=== PATIENT | male | born 1960 | race Caucasian/White ===

== ENCOUNTER → 2020-08-23 11:19 | Outpatient (CLI) | payer OTHER, SELFPAY ==
[2020-08-23 15:49] LABS: Absolute Lymphocyte Count 2.78 X10^3/uL (0.83-4.51); Absolute Neutrophil Count 5.7 X10^3/uL (2.0-7.7); Basophil# 0.08 X10^3/uL; Basophil% 0.8 % (0-1); Eosinophil# 0.38 X10^3/uL; Eosinophils% 3.9 % (0-5); Hematocrit 43.5 % (40-54); Hemoglobin 13.7 g/dL (13.0-16.5); Lymphocyte # 2.78 X10^3/ul (4.0); Lymphocyte % 28.2 % (19-41); Mean Corp Hgb Conc 31.5 g/dL (32-36); Mean Platelet Vol. 12.2 fl (6.2-12.0); Monocyte# 0.93 X10^3/uL; Monocyte% 9.4 % (0-10); NRBC Flagged by Analyzer 0 % (0-5); Neutrophil # 5.66 X10^3/uL (2.7-7.7); Neutrophil % 57.5 % (47-70); Platelet Count 317 K/mm3 (150-450); RBC Distribution Width CV 13.3 % (11.6-14.6); RBC Distribution Width SD 43.6 fl (35.1-43.9); Red Blood Count 4.89 M/mm3 (4.6-6.2); White Blood Count 9.9 K/mm3 (4.4-11.0)
[2020-08-23 16:17] LABS: ALB/GLOB Ratio 1.1 RATIO (0.9-2.4); AST(SGOT) 18 U/L (15-37); Alanine Aminotransfer ALT/SGPT 32 U/L (16-61); Albumin, Serum 3.9 g/dL (3.2-5.0); Alkaline Phosphatase 66 U/L (45-117); Anion Gap 6 (5-15); BUN 14 mg/dL (7-18); BUN/Creat Ratio 12.2 RATIO (10-20); Calcium,Total 9.1 mg/dL (8.5-10.1); Chloride 106 mmol/L (98-107); Cholesterol 229 mg/dL (200); Creatinine, Serum 1.15 mg/dL (0.70-1.30); EST Glomerular Filtration Rate 69 mL/min (>60); Est Glom Filt Rate - Afr Amer 84 mL/min (>60); Globulin 3.4 g/dL (2.2-4.2); Glucose 97 mg/dL (74-106); High Density Lipoprotein 56 mg/dL; PSA,Total - Annual Screen 0.68 ng/mL (0.00-4.00); Potassium 4.9 mmol/L (3.5-5.1); Protein, Total 7.3 g/dL (6.4-8.2); Sodium Level 138 mmol/L (136-145); Thyroid Stim Hormone (TSH) 1.18 uIU/mL (0.358-3.74); Triglycerides 85 mg/dL; Uric Acid 8.4 mg/dL (3.5-7.2); Very Low Density Lipoprotein 17 mg/dL (5-40)
== END ==
PROVIDERS: PCP Family Medicine; Visit Provider Family Medicine
DX: I10 Essential (primary) hypertension (principal); M10.9 Gout, unspecified; Z12.5 Encounter for screening for malignant neoplasm of prostate
CPT/HCPCS: 36415; 80053; 80061; 84153; 84443; 84550; 85025; G0103

== ENCOUNTER → 2020-09-15 13:30 | Outpatient (CLI) | payer OTHER, SELFPAY | PROVIDERS: PCP Family Medicine; Referring Provider Family Medicine; Visit Provider Family Medicine | DX: R05 Cough (principal); R09.81 Nasal congestion | CPT/HCPCS: 87635; C9803; U0005; U0003 ==

== ENCOUNTER → 2021-05-16 14:39 | Outpatient (CLI) | payer OTHER, SELFPAY | PROVIDERS: Visit Provider Internal Medicine Endocrinology, Diabetes & Metabolism | DX: Z00.00 Encounter for general adult medical examination without abnormal findings (principal) ==

== ENCOUNTER → 2021-05-16 14:51 | Outpatient (CLI) | payer OTHER, SELFPAY ==
[2021-05-16 16:41] LABS: Absolute Lymphocyte Count 3.17 X10^3/uL (0.83-4.51); Absolute Neutrophil Count 7.5 X10^3/uL (2.0-7.7); Basophil# 0.06 X10^3/uL; Basophil% 0.5 % (0-1); Eosinophil# 0.32 X10^3/uL; Eosinophils% 2.6 % (0-5); Hematocrit 40.5 % (40-54); Hemoglobin 13.2 g/dL (13.0-16.5); Lymphocyte # 3.17 X10^3/ul (0.83-4.51); Lymphocyte % 26.1 % (19-41); Mean Corp Hgb Conc 32.6 g/dL (32-36); Mean Corpuscular Hgb 28.9 pg (27.0-32.0); Mean Corpuscular Volume 88.6 fL (80-94); Monocyte# 1.02 X10^3/uL; Monocyte% 8.4 % (0-10); NRBC Flagged by Analyzer 0 % (0-5); Neutrophil # 7.53 X10^3/uL (2.7-7.7); Platelet Count 303 K/mm3 (150-450); RBC Distribution Width CV 13.8 % (11.6-14.6); Red Blood Count 4.57 M/mm3 (4.6-6.2); White Blood Count 12.2 K/mm3 (4.4-11.0)
[2021-05-16 16:58] LABS: AST(SGOT) 18 U/L (15-37); Alanine Aminotransfer ALT/SGPT 31 U/L (16-61); Albumin, Serum 3.8 g/dL (3.2-5.0); Alkaline Phosphatase 75 U/L (45-117); Anion Gap 6 (5-15); BUN 12 mg/dL (7-18); BUN/Creat Ratio 11.8 RATIO (10-20); Calcium,Total 9.2 mg/dL (8.5-10.1); Chloride 106 mmol/L (98-107); Cholesterol 241 mg/dL (200); Creatinine, Serum 1.02 mg/dL (0.70-1.30); EST Glomerular Filtration Rate 79 mL/min (>60); Est Glom Filt Rate - Afr Amer 96 mL/min (>60); Globulin 3.7 g/dL (2.2-4.2); Glucose 90 mg/dL (74-106); High Density Lipoprotein 58 mg/dL; Potassium 4.1 mmol/L (3.5-5.1); Protein, Total 7.5 g/dL (6.4-8.2); Sodium Level 139 mmol/L (136-145); Triglycerides 86 mg/dL; Uric Acid 8.1 mg/dL (3.5-7.2); Very Low Density Lipoprotein 17 mg/dL (5-40)
== END ==
PROVIDERS: Visit Provider Internal Medicine
DX: I10 Essential (primary) hypertension (principal); E78.5 Hyperlipidemia, unspecified; M10.9 Gout, unspecified
CPT/HCPCS: 36415; 80053; 80061; 84550; 85025

== ENCOUNTER 2021-08-15 09:16 | Outpatient (CLI) | payer OTHER, SELFPAY ==
[2021-08-15 12:09] LABS: Absolute Lymphocyte Count 2.71 X10^3/uL (0.83-4.51); Absolute Neutrophil Count 6.9 X10^3/uL (2.0-7.7); Basophil# 0.07 X10^3/uL; Basophil% 0.6 % (0-1); Eosinophil# 0.29 X10^3/uL; Eosinophils% 2.7 % (0-5); Hematocrit 41.8 % (40-54); Hemoglobin 13.7 g/dL (13.0-16.5); Lymphocyte # 2.71 X10^3/ul (0.83-4.51); Lymphocyte % 25.2 % (19-41); Mean Corp Hgb Conc 32.8 g/dL (32-36); Mean Corpuscular Hgb 28.4 pg (27.0-32.0); Mean Corpuscular Volume 86.7 fL (80-94); Mean Platelet Vol. 11.7 fl (6.2-12.0); Monocyte# 0.74 X10^3/uL; Monocyte% 6.9 % (0-10); NRBC Flagged by Analyzer 0 % (0-5); Neutrophil # 6.92 X10^3/uL (2.7-7.7); Neutrophil % 64.2 % (47-70); Platelet Count 345 K/mm3 (150-450); RBC Distribution Width CV 13.5 % (11.6-14.6); RBC Distribution Width SD 42.6 fl (35.1-43.9); Red Blood Count 4.82 M/mm3 (4.6-6.2); White Blood Count 10.8 K/mm3 (4.4-11.0)
[2021-08-15 12:27] LABS: Uric Acid 6.7 mg/dL (3.5-7.2)
== END 2021-08-15 23:59 | disposition short-term general hospital (02) ==
LOC: BIMLAB 09:17
PROVIDERS: PCP Internal Medicine; Referring Provider Internal Medicine; Visit Provider Internal Medicine
DX: M10.9 Gout, unspecified (principal)
CPT/HCPCS: 36415; 84550; 85025

== ENCOUNTER → 2022-08-29 | Outpatient (CLI) | payer OTHER, SELFPAY ==
[2022-08-29 12:16] LABS: Absolute Lymphocyte Count 2.87 X10^3/uL (0.83-4.51); Absolute Neutrophil Count 6.3 X10^3/uL (2.0-7.7); Basophil# 0.09 X10^3/uL; Basophil% 0.8 % (0-1); Eosinophil# 0.35 X10^3/uL; Eosinophils% 3.3 % (0-5); Hematocrit 42.3 % (40-54); Hemoglobin 13.7 g/dL (13.0-16.5); Lymphocyte # 2.87 X10^3/ul (0.83-4.51); Lymphocyte % 26.9 % (19-41); Mean Corp Hgb Conc 32.4 g/dL (32-36); Mean Corpuscular Hgb 28.8 pg (27.0-32.0); Mean Corpuscular Volume 89.1 fL (80-94); Mean Platelet Vol. 11.8 fl (6.2-12.0); Monocyte# 1.03 X10^3/uL; Monocyte% 9.7 % (0-10); NRBC Flagged by Analyzer 0 % (0-5); Platelet Count 302 K/mm3 (150-450); RBC Distribution Width CV 13.9 % (11.6-14.6); RBC Distribution Width SD 45.2 fl (35.1-43.9); Red Blood Count 4.75 M/mm3 (4.6-6.2); White Blood Count 10.7 K/mm3 (4.4-11.0)
[2022-08-29 12:52] LABS: AST(SGOT) 18 U/L (15-37); Alanine Aminotransfer ALT/SGPT 33 U/L (16-61); Albumin, Serum 3.7 g/dL (3.2-5.0); Alkaline Phosphatase 70 U/L (45-117); Anion Gap 8 (5-15); BUN 18 mg/dL (7-18); BUN/Creat Ratio 16.8 RATIO (10-20); Calcium,Total 9.1 mg/dL (8.5-10.1); Chloride 107 mmol/L (98-107); Cholesterol 228 mg/dL (200); Creatinine, Serum 1.07 mg/dL (0.70-1.30); EST Glomerular Filtration Rate 75 mL/min (>60); Est Glom Filt Rate - Afr Amer 91 mL/min (>60); Globulin 3.6 g/dL (2.2-4.2); Glucose 111 mg/dL (74-106); High Density Lipoprotein 59 mg/dL; PSA,Total - Annual Screen 1.07 ng/mL (0.00-4.00); Potassium 4.8 mmol/L (3.5-5.1); Protein, Total 7.3 g/dL (6.4-8.2); Sodium Level 140 mmol/L (136-145); Thyroid Stim Hormone (TSH) 1.09 uIU/mL (0.358-3.74); Triglycerides 109 mg/dL; Very Low Density Lipoprotein 22 mg/dL (5-40)
[2022-08-29 14:59] LABS: Hemoglobin A1c 5.8 % (3.8-5.6)
== END | disposition home or self-care (01) ==
LOC: BIMLAB 08:33
PROVIDERS: PCP Nurse Practitioner Family; Referring Provider Nurse Practitioner Family; Visit Provider Nurse Practitioner Family
DX: Z00.00 Encounter for general adult medical examination without abnormal findings (principal)
CPT/HCPCS: 36415; 80053; 80061; 83036; 84153; 84443; 85025; G0103

== ENCOUNTER 2022-11-24 06:22 | Day surgery (SDC) | payer OTHER, SELFPAY ==
[2022-11-24 06:47] VITALS: BP 150/84; PULSE 59; RESP 16; TEMP 36.8; O2SAT 97; BMI 33.5
[2022-11-24] MEDS: Lactated Ringers 1,000 ML 15 ML IV (06:50)
--- NOTE | 2022-11-24 07:16 | H&P.OPEN ---
HPI - General HPI Narrative YARED PEPE, is a 62 M who presents for screening colonoscopy. Patient has had his last colonoscopy about 10 years ago. He denies any abdominal pain or blood in stool. Patient denies any family history of colon cancer except for his grandmother. [facility] Medical History (Updated 11/21/22 @ 10:49 by Debbie Vickers) Alcohol use Bilateral foot pain Encounter for preventative adult health care examination [facility] Health care maintenance History of deviated nasal septum History of stress test Hyperlipemia Hypertension Need for shingles vaccine Non-smoker Obesity (BMI 30-39.9) Home Medications aspirin 81 mg capsule 81 mg PO DAILY 05/16/21 [History Last Taken 11/23/22] multivitamin 1 tab PO DAILY 05/16/21 [History Last Taken Unknown] atenolol 50 mg tablet 50 mg PO DAILY #90 tabs 08/29/22 [Rx Last Taken 11/24/22] fexofenadine 60 mg tablet (Rosalinda Allergy) 60 mg PO DAILY 09/05/22 [History Last Taken Unknown] lisinopril 10 mg tablet 20 mg PO QDAY 11/21/22 [History Last Taken 11/24/22] Allergy/AdvReac Type Severity Reaction Status Date / Time Penicillins Allergy Unknown unknown Verified 11/24/22 06:39 Family History Father Heart disease Daughter No problems noted. Mother Breast cancer Grandmother Colon cancer Grandfather Heart disease Surgical History (Updated 11/21/22 @ 10:49 by Debbie Vickers) History of colonoscopy Hx of knee surgery Social History Smoking Status: Never smoker alcohol intake: current alcohol intake frequency: holidays/special occasions only substance use type: does not use what type of physical activity do you participate in: none Past Medical/Surgical History Planned Operation Planned Operative Procedure/s: CSCOPE OA Previous Hospitalizations/Surgeries HX Hospitalizations: No Any Problems With Anesthesia: No You/Your Family Experience Fever (Hyperthermia) With Anes: No Cholinesterase deficiency: No Cardiovascular Hx Hypertension: Yes (CONTROLLED WITH MEDS) Respiratory Hx Sleep Apnea: No Hx Respiratory Tract Infection/Cold (presently): No Do You Snore Loudly (louder than talking or can be heard): Yes Do You Often Feel Tired/ Fatigued/ Sleepy Dring Daytime?: No Has Anyone Observed You Stop Breathing During Sleep?: No Result (for STOP score): Positive Smoking Status: Never smoker Neurological Does patient have nerve stimulator: No Reproduction : No Miscellaneous Recent Exposure to Contagious Disease: No Allergies Penicillins Allergy (Unknown, Verified 11/24/22 06:39) unknown Discharge Is Pt Admitted From a [facility], or a Residential: No After D/C, Where Do you Plan to Go: Return Home Vital Signs Vital Signs Vital Signs: 11/24/22 06:47 11/24/22 06:47 Temperature 98.2 F Temperature Source Temporal Pulse Rate 59 L Respiratory Rate 16 Respiratory Pattern Normal Blood Pressure 150/84 H Blood Pressure Mean 106 Blood Pressure Source Monitor Blood Pressure Position Semi-Fowlers Blood Pressure Location Left Arm Pulse Ox 97 Oxygen Delivery Method Room Air Weight Weight: 220 lb 7.396 oz Body Mass Index (BMI) 33.5 Physical Exam Const alert and oriented x3 HEENT normocephalic Eyes PERRL Resp normal respiratory effort and normal air movement Cardio regular rate and regular rhythm GI soft to palpation, non-tender and non-distended Extremity normal to inspection Assessment & Plan Assessment/Plan (1) Encounter for screening for malignant neoplasm of colon: PLAN: I explained endoscopy in detail to the patient. I explained the risks including but not limited to stroke or heart attack with anesthesia, perforation of the GI tract, bleeding, infection. I explained that any of these could necessitate further emergency surgery. The patient understands and all questions were answered sufficiently. The patient wishes to proceed with procedure. Michoacano Gil MD Pager: [phone] [address] [place] [address], [address] [place] [address] Office: Surgery Risks - Colonoscopy Risks Include but are not Limited To: Risks include but are not limited to: Bleeding, perforation requiring further surgery, inability to complete colonoscopy requiring barium enema.
--- NOTE | 2022-11-24 07:30 | COLBX_PTH ---
PATIENT: YARED PEPE (ROB) LOC: EN U#:[id number] AGE/SX: 62/M ROOM: RE11/24/[address]: Dr. Michoacano Gil MD : 1960 BED: DIS: 11/24/2022 SPEC #: [id number] RECD: 11/24/22 12:32 STATUS: LAYTON PARIKH #: [id number] PEDRO: 11/24/22 07:[address]: Michoacano Gil DEPT: SURGICAL PATHOLOGY RECD BY: Guillermina Oneil ENTERED: 11/27/22 07:22 SP TYPE: COLON BX OTHR DR: Pillo Anderson, RIAZ-Venancio Tissues: Rectum, NOS Procedures: Surgery Specimen Level IV HEADER OPERATION: Colonoscopy with polypectomy, open access (MAC) PRE-OP DIAGNOSIS: Screening TISSUE SUBMITTED: Rectal polyp MICROSCOPIC DIAGNOSIS Rectal polyp, biopsy: Tubular adenoma. AM:julissa 11/28/2022 MICROSCOPIC DESCRIPTION Slides are reviewed. GROSS DESCRIPTION Received in fixative is one container labeled with the patient's name and designated rectal polyp. The specimen consists of one irregular fragment of light tran soft tissue that measures 0.5 x 0.5 x 0.1 cm. The specimen is totally submitted in one cassette. / AM:julissa 11/27/2022 TC:5 CPT: 71048
[2022-11-24 07:45] VITALS: BP 150/84; BP 89/49; PULSE 53; RESP 16; TEMP 36.6; O2SAT 95
--- NOTE | 2022-11-24 07:46 | OP.COLON_ITS ---
Patient Name: Samuel Jackson Procedure Date: 11/24/2022 7:09 AM Date of : 1960 Age: 62 Procedure: Colonoscopy Indications: Screening for colorectal malignant neoplasm Providers: Michoacano Gil MD Referring MD: Michoacano Gil MD Medicines: Monitored Anesthesia Care Patient Profile: This is a 62 year old male. Refer to note in patient chart for documentation of history and physical. Last Colonoscopy: 10 years ago. Complications: No immediate complications. Procedure: Pre-Anesthesia Assessment: - Prior to the procedure, a History and Physical was performed, and patient medications and allergies were reviewed. The patient's tolerance of previous anesthesia was also reviewed. The risks and benefits of the procedure and the sedation options and risks were discussed with the patient. All questions were answered, and informed consent was obtained. Prior Anticoagulants: The patient has taken no previous anticoagulant or antiplatelet agents. After reviewing the risks and benefits, the patient was deemed in satisfactory condition to undergo the procedure. After I obtained informed consent, the scope was passed under direct vision. Throughout the procedure, the patient's blood pressure, pulse, and oxygen saturations were monitored continuously. The Colonoscope was introduced through the anus and advanced to the cecum, identified by appendiceal orifice and ileocecal valve. The colonoscopy was performed without difficulty. The patient tolerated the procedure well. The quality of the bowel preparation was good. Scope In: 7:28:04 AM Scope Withdrawal Time 0 hours 8 minutes 3 seconds Scope Out: 7:40:04 AM Total Procedure Duration Time 0 hours 12 minutes 0 seconds Findings: A polyp was found in the rectum. The polyp was removed with a hot snare. Resection and retrieval were complete. The exam was otherwise without abnormality on direct and retroflexion views. Impression: - One polyp in the rectum, removed with a hot snare. Resected and retrieved. - The examination was otherwise normal on direct and retroflexion views. Recommendation: - Discharge patient to home. - Resume previous diet. - Continue present medications. - Await pathology results. - Repeat colonoscopy in 5 years for surveillance. Procedure Code(s): --- Professional --- 73313, 33, Colonoscopy, flexible; with removal of tumor(s), polyp(s), or other lesion(s) by snare technique Diagnosis Code(s): --- Professional --- Z12.11, Encounter for screening for malignant neoplasm of colon K62.1, Rectal polyp CPT copyright 2017 [employer]. All rights reserved. The codes documented in this report are preliminary and upon remote medical coder review may be revised to meet current compliance requirements. Michoacano Gil MD 11/24/2022 7:45:43 AM This report has been signed electronically. Number of Addenda: 0 Note Initiated On: 11/24/2022 7:09 AM
--- NOTE | 2022-11-24 07:47 | OP.CCLET_ITS ---
11/24/2022 Pillo Anderson, RIAZ [address] [place] [address] [place] [address] Re : Colonoscopy procedure for Samuel Jackson Dear Mr. Anderson This procedure was performed on Thursday, November 24, 2022. My impressions and recommendations are as follows: Impressions : - One polyp in the rectum, removed with a hot snare. Resected and retrieved. - The examination was otherwise normal on direct and retroflexion views. Recommendations : - Discharge patient to home. - Resume previous diet. - Continue present medications. - Await pathology results. - Repeat colonoscopy in 5 years for surveillance. My findings are described in the full procedure note, which is enclosed. If I can be of further assistance, please feel free to contact me at Doctor phone number(s): , Work: . Sincerely, Michoacano Gil MD 11/24/2022 7:45:43 AM This report has been signed electronically.
[2022-11-24 07:50] VITALS: BP 150/84; BP 86/49; PULSE 52; RESP 16; O2SAT 94
[2022-11-24 07:55] VITALS: BP 111/68; BP 150/84; PULSE 51; RESP 16; O2SAT 94
[2022-11-24 08:00] VITALS: BP 113/68; BP 150/84; PULSE 50; RESP 16; TEMP 36.5; O2SAT 93
[2022-11-24 08:20] VITALS: BP 150/84
== END 2022-11-24 08:25 | disposition home or self-care (01) ==
LOC: EN 06:24 → AC 06:25
PROVIDERS: PCP Nurse Practitioner Family; Referring Provider Nurse Practitioner Family; Visit Provider Surgery
PROC: 0DJD8ZZ Inspection of Lower Intestinal Tract, Via Natural or Artificial Opening Endoscopic (ICD-10-PCS; CPT 45378; principal; 2022-11-24 07:25)
DX: Z12.11 Encounter for screening for malignant neoplasm of colon (principal); D12.8 Benign neoplasm of rectum; I10 Essential (primary) hypertension; Z79.899 Other long term (current) drug therapy; Z79.82 Long term (current) use of aspirin; Z80.0 Family history of malignant neoplasm of digestive organs
CPT/HCPCS: 45385; 88305; J7120; J2405

== ENCOUNTER → 2022-12-05 | Outpatient (CLI) | payer OTHER, SELFPAY ==
[2022-12-05 09:24] LABS: Anion Gap 5 (5-15); BUN 13 mg/dL (7-18); BUN/Creat Ratio 11.3 RATIO (10-20); Calcium,Total 9.4 mg/dL (8.5-10.1); Chloride 108 mmol/L (98-107); Creatinine, Serum 1.15 mg/dL (0.70-1.30); EST Glomerular Filtration Rate 69 mL/min (>60); Est Glom Filt Rate - Afr Amer 83 mL/min (>60); Glucose 116 mg/dL (74-106); Potassium 4.7 mmol/L (3.5-5.1); Sodium Level 140 mmol/L (136-145)
== END | disposition home or self-care (01) ==
LOC: PAVLAB 08:32
PROVIDERS: PCP Nurse Practitioner Family; Referring Provider Nurse Practitioner Family; Visit Provider Nurse Practitioner Family
DX: I10 Essential (primary) hypertension (principal)
CPT/HCPCS: 36415; 80048

== ENCOUNTER → 2023-09-08 | Outpatient (CLI) | payer OTHER, SELFPAY ==
--- OUTSIDE RECORDS SUMMARY | 2023-09-08 08:09 | XMS RPT_ITS | CCD ---
Author Name Unknown Address [address] [place] [address] Organization [facility] Results Test Name Value Interpretation Reference Range Facil ity Summary Purpose Family History No Family History Records Found Advance Directives No Advanced Directives Records Found Additional Source Comments (unrecognized sect ion and content) No Status Records Found INFORMATION SOURCE (unrecogn ized section and content) FOR RECORDS PERTAINING TO PATIENTS WHO ARE OR HAVE BEEN ENROLLED IN A CHEMICAL DEPENDENCY/SUBSTANCEABUSE PROGRAM, SOME INFORMATION MAY BE OMITTED. This clinical summary was aggregated from multiple sources. Caution should be exercised in using it in the provision of clinical care. This summary normalizes information from multiple sources, and as a consequence, information in this document may materially change the coding, format and clinical context of patient data. In addition, data may be omitted in some cases. CLINICAL DECISIONS SHOULD BE BASED ON THE PRIMARY CLINICAL RECORDS. [employer]. provides no warranty or guarantee of the accuracy or completeness of information in this document.
[2023-09-08 09:18] LABS: Absolute Lymphocyte Count 3.46 X10^3/uL (0.83-4.51); Basophil# 0.12 X10^3/uL; Basophil% 1.1 % (0-1); Eosinophil# 0.62 X10^3/uL; Eosinophils% 5.5 % (0-5); Hematocrit 41.8 % (40-54); Hemoglobin 13.3 g/dL (13.0-16.5); Lymphocyte # 3.46 X10^3/ul (0.83-4.51); Lymphocyte % 30.7 % (19-41); Mean Corp Hgb Conc 31.8 g/dL (32-36); Mean Corpuscular Hgb 28.1 pg (27.0-32.0); Mean Corpuscular Volume 88.4 fL (80-94); Mean Platelet Vol. 11.5 fl (6.2-12.0); Monocyte# 1.02 X10^3/uL; Monocyte% 9.1 % (0-10); NRBC Flagged by Analyzer 0 % (0-5); Neutrophil # 6.01 X10^3/uL (2.7-7.7); Neutrophil % 53.2 % (47-70); Platelet Count 337 K/mm3 (150-450); RBC Distribution Width CV 13.2 % (11.6-14.6); RBC Distribution Width SD 42.6 fl (35.1-43.9); Red Blood Count 4.73 M/mm3 (4.6-6.2); White Blood Count 11.3 K/mm3 (4.4-11.0)
[2023-09-08 10:14] LABS: ALB/GLOB Ratio 1.1 RATIO (0.9-2.4); AST(SGOT) 17 U/L (15-37); Alanine Aminotransfer ALT/SGPT 26 U/L (16-61); Albumin, Serum 3.8 g/dL (3.2-5.0); Alkaline Phosphatase 64 U/L (45-117); Anion Gap 4 (5-15); BUN 17 mg/dL (7-18); BUN/Creat Ratio 12.8 RATIO (10-20); Calcium,Total 9.8 mg/dL (8.5-10.1); Chloride 106 mmol/L (98-107); Cholesterol 277 mg/dL (200); Creatinine, Serum 1.33 mg/dL (0.70-1.30); EST Glomerular Filtration Rate 58 mL/min (>60); Est Glom Filt Rate - Afr Amer 70 mL/min (>60); Globulin 3.6 g/dL (2.2-4.2); Glucose 119 mg/dL (74-106); High Density Lipoprotein 58 mg/dL; PSA,Total - Annual Screen 0.83 ng/mL (0.00-4.00); Potassium 4.4 mmol/L (3.5-5.1); Protein, Total 7.4 g/dL (6.4-8.2); Sodium Level 137 mmol/L (136-145); Triglycerides 95 mg/dL; Very Low Density Lipoprotein 19 mg/dL (5-40)
== END | disposition home or self-care (01) ==
LOC: LAB 08:07
PROVIDERS: PCP Internal Medicine; Referring Provider Internal Medicine; Visit Provider Internal Medicine
DX: Z00.00 Encounter for general adult medical examination without abnormal findings (principal); I10 Essential (primary) hypertension; R73.03 Prediabetes
CPT/HCPCS: 36415; 80053; 80061; 83036; 84153; 85025; G0103

== ENCOUNTER → 2023-10-17 | Outpatient (CLI) | payer OTHER, SELFPAY ==
--- OUTSIDE RECORDS SUMMARY | 2023-10-17 07:57 | XMS RPT_ITS | CCD ---
Author Name Unknown Address [address] [place] [address] Organization [facility] Results Test Name Value Interpretation [...] BE BASED ON THE PRIMARY CLINICAL RECORDS. [employer]. provides no warranty or guarantee of the accuracy or completeness of information in this document.
[2023-10-17 08:44] LABS: ALB/GLOB Ratio 1.1 RATIO (0.9-2.4); AST(SGOT) 33 U/L (15-37); Alanine Aminotransfer ALT/SGPT 30 U/L (16-61); Albumin, Serum 3.7 g/dL (3.2-5.0); Alkaline Phosphatase 52 U/L (45-117); Anion Gap 6 (5-15); BUN 14 mg/dL (7-18); BUN/Creat Ratio 12.1 RATIO (10-20); Chloride 104 mmol/L (98-107); Creatinine, Serum 1.16 mg/dL (0.70-1.30); EST Glomerular Filtration Rate 68 mL/min (>60); Est Glom Filt Rate - Afr Amer 82 mL/min (>60); Globulin 3.5 g/dL (2.2-4.2); Glucose 107 mg/dL (74-106); Potassium 4.4 mmol/L (3.5-5.1); Protein, Total 7.2 g/dL (6.4-8.2); Sodium Level 137 mmol/L (136-145)
== END | disposition home or self-care (01) ==
PROVIDERS: PCP Internal Medicine; Referring Provider Internal Medicine; Visit Provider Internal Medicine
DX: E78.5 Hyperlipidemia, unspecified (principal)
CPT/HCPCS: 36415; 80053

== ENCOUNTER → 2023-12-14 | Outpatient (CLI) | payer OTHER, SELFPAY ==
[2023-12-14 08:57] LABS: ALB/GLOB Ratio 1.1 RATIO (0.9-2.4); AST(SGOT) 19 U/L (15-37); Alanine Aminotransfer ALT/SGPT 24 U/L (16-61); Alkaline Phosphatase 61 U/L (45-117); Anion Gap 4 (5-15); BUN 20 mg/dL (7-18); BUN/Creat Ratio 17.5 RATIO (10-20); Calcium,Total 9.7 mg/dL (8.5-10.1); Chloride 105 mmol/L (98-107); Cholesterol 152 mg/dL (200); Creatinine, Serum 1.14 mg/dL (0.70-1.30); EST Glomerular Filtration Rate 69 mL/min (>60); Est Glom Filt Rate - Afr Amer 84 mL/min (>60); Globulin 3.6 g/dL (2.2-4.2); Glucose 116 mg/dL (74-106); High Density Lipoprotein 57 mg/dL; Protein, Total 7.6 g/dL (6.4-8.2); Sodium Level 136 mmol/L (136-145); Triglycerides 68 mg/dL; Very Low Density Lipoprotein 14 mg/dL (5-40)
== END | disposition home or self-care (01) ==
PROVIDERS: PCP Internal Medicine; Referring Provider Internal Medicine; Visit Provider Internal Medicine
DX: E78.5 Hyperlipidemia, unspecified (principal)
CPT/HCPCS: 36415; 80053; 80061

== ENCOUNTER → 2024-03-07 | Outpatient (CLI) | payer OTHER, SELFPAY ==
[2024-03-07 11:18] LABS: Anion Gap 5 (5-15); BUN 17 mg/dL (7-18); BUN/Creat Ratio 14.5 RATIO (10-20); Calcium,Total 9.9 mg/dL (8.5-10.1); Chloride 104 mmol/L (98-107); Creatinine, Serum 1.17 mg/dL (0.70-1.30); EST Glomerular Filtration Rate 67 mL/min (>60); Est Glom Filt Rate - Afr Amer 81 mL/min (>60); Glucose 111 mg/dL (74-106); Potassium 5.1 mmol/L (3.5-5.1); Sodium Level 137 mmol/L (136-145)
== END | disposition home or self-care (01) ==
LOC: BIMLAB 08:22
PROVIDERS: PCP Internal Medicine; Referring Provider Internal Medicine; Visit Provider Internal Medicine
DX: R73.03 Prediabetes (principal); I10 Essential (primary) hypertension
CPT/HCPCS: 36415; 80048; 83036

== ENCOUNTER → 2024-03-10 | Outpatient (CLI) | payer OTHER, SELFPAY ==
[2024-03-10 11:55] LABS: Body Fluid QC Type(s) BF3Q
[2024-03-10 11:56] LABS: CRYSTALS, BODY FLUID NO CRYSTALS SEEN; Source- Body Fluid SYNOVIAL
[2024-03-11 14:52] LABS: Pathologist Review Reviewed
== END | disposition home or self-care (01) ==
LOC: LABSPEC 10:50
PROVIDERS: PCP Internal Medicine; Referring Provider Orthopaedic Surgery; Visit Provider Orthopaedic Surgery
DX: I10 Essential (primary) hypertension (principal); E78.5 Hyperlipidemia, unspecified; M10.9 Gout, unspecified; R73.03 Prediabetes
CPT/HCPCS: 89060

== ENCOUNTER → 2024-04-21 | Outpatient (CLI) | payer OTHER, SELFPAY ==
--- NOTE | 2024-04-21 11:39 | MRI_ITS ---
STUDY: MRI RIGHT KNEE REASON FOR EXAM: Male, 64 years old. Throbbing pain for 3 months. TECHNIQUE: Standardized fat and water weighted pulse sequences were obtained in all 3 orthogonal planes. COMPARISON: Right knee radiographs dated 03/10/2024. FINDINGS: Normal medial meniscus. Normal hyaline cartilage of the medial femorotibial compartment. Normal medial femoral condyle and tibial plateau. There is a mild grade I MCL sprain with periligamentous edema (coronal T2 series 7001 image 21). Intact distal semimembranosus, gracilis and semitendinosus tendons. There is mild semimembranosus-tibial collateral ligament bursitis. There is a suspected small horizontal tear of the body of the lateral meniscus (coronal PD series 6001 images 21-22). Normal hyaline cartilage of the lateral femorotibial compartment. Normal lateral femoral condyle and tibial plateau. Normal proximal tibiofibular articulation. Normal lateral collateral (fibular) ligament. Normal popliteus tendon. Normal biceps femoris tendon. Normal anterior cruciate ligament (ACL). Normal posterior cruciate ligament (PCL). There is moderate grade chondromalacia along the medial patellar facet (axial T2 series 3001 images 27-28). There is slight lateral patellar subluxation. Normal medial and lateral patellar retinaculum. Normal quadriceps tendon. Normal patellar tendon. Normal Hoffa''s fat pad. There is a moderate to large joint effusion. There is a tiny popliteal cyst. There is mild subcutaneous soft tissue edema around the knee. There is no acute fracture. MRI/Lower Ext Joint Only (Routine) IMPRESSION: Suspected small horizontal tear of the body of the lateral meniscus. Mild grade I MCL sprain. Mild semimembranosus-tibial collateral ligament bursitis. 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 Moderate to large joint effusion, with a tiny popliteal cyst. Mild subcutaneous soft tissue edema around the knee. Electronically Signed: Davin Hall MD at 11:10 EDT ,
== END | disposition home or self-care (01) ==
LOC: MRI 13:14
PROVIDERS: PCP Internal Medicine; Referring Provider Orthopaedic Surgery; Visit Provider Orthopaedic Surgery
DX: M17.11 Unilateral primary osteoarthritis, right knee (principal)
CPT/HCPCS: 73721; A9575; A4216

== ENCOUNTER → 2024-07-10 | Outpatient (CLI) | payer OTHER, SELFPAY ==
[2024-07-10 16:32] LABS: Erythrocyte Sedimentation Rate 20 mm/hr (0-20)
[2024-07-10 16:47] LABS: Rheumatoid Factor < 10.0 IU/mL (<15)
[2024-07-12 13:07] LABS: CCP IgG Antibodies 7 units (0-19); Lyme Scn Total Ab w/Rflx Negative (Negative)
[2024-07-15 11:09] LABS: ANTINUCLEAR ANTIBODIES DIRECT Negative (Negative)
== END | disposition home or self-care (01) ==
LOC: BIMLAB 15:51
PROVIDERS: PCP Internal Medicine; Referring Provider Physician Assistant; Visit Provider Physician Assistant
DX: M79.10 Myalgia, unspecified site (principal)
CPT/HCPCS: 36415; 85652; 86038; 86140; 86200; 86225; 86235; 86431; 86618

== ENCOUNTER → 2024-09-08 | Outpatient (CLI) | payer OTHER, SELFPAY ==
[2024-09-08 10:35] LABS: Absolute Lymphocyte Count 2.41 X10^3/uL (0.83-4.51); Absolute Neutrophil Count 6.3 X10^3/uL (2.0-7.7); Basophil# 0.08 X10^3/uL; Basophil% 0.8 % (0-1); Eosinophil# 0.52 X10^3/uL; Eosinophils% 5.1 % (0-5); Hematocrit 38.8 % (40-54); Hemoglobin 12.5 g/dL (13.0-16.5); Lymphocyte # 2.41 X10^3/ul (0.83-4.51); Lymphocyte % 23.5 % (19-41); Mean Corp Hgb Conc 32.2 g/dL (32-36); Mean Corpuscular Hgb 27.8 pg (27.0-32.0); Mean Corpuscular Volume 86.2 fL (80-94); Mean Platelet Vol. 11.7 fl (6.2-12.0); Monocyte# 0.91 X10^3/uL; Monocyte% 8.9 % (0-10); NRBC Flagged by Analyzer 0 % (0-5); Neutrophil # 6.31 X10^3/uL (2.7-7.7); Neutrophil % 61.4 % (47-70); Platelet Count 317 K/mm3 (150-450); RBC Distribution Width CV 13.9 % (11.6-14.6); RBC Distribution Width SD 43.6 fl (35.1-43.9); White Blood Count 10.3 K/mm3 (4.4-11.0)
[2024-09-08 11:07] LABS: AST(SGOT) 15 U/L (15-37); Alanine Aminotransfer ALT/SGPT 26 U/L (16-61); Albumin, Serum 3.9 g/dL (3.2-5.0); Alkaline Phosphatase 58 U/L (45-117); Anion Gap 8 (5-15); BUN 18 mg/dL (7-18); BUN/Creat Ratio 15.1 RATIO (10-20); Calcium,Total 10.1 mg/dL (8.5-10.1); Chloride 104 mmol/L (98-107); Creatinine, Serum 1.19 mg/dL (0.70-1.30); EST Glomerular Filtration Rate 66 mL/min (>60); Est Glom Filt Rate - Afr Amer 80 mL/min (>60); Globulin 3.8 g/dL (2.2-4.2); Glucose 117 mg/dL (74-106); PSA,Total - Annual Screen 0.94 ng/mL (0.00-4.00); Potassium 4.9 mmol/L (3.5-5.1); Protein, Total 7.7 g/dL (6.4-8.2); Sodium Level 138 mmol/L (136-145)
[2024-09-08 13:49] LABS: Hemoglobin A1c 5.6 % (3.8-5.6)
== END | disposition home or self-care (01) ==
LOC: BIMLAB 08:51
PROVIDERS: PCP Internal Medicine; Referring Provider Internal Medicine; Visit Provider Internal Medicine
DX: I10 Essential (primary) hypertension (principal); R73.03 Prediabetes; Z12.5 Encounter for screening for malignant neoplasm of prostate
CPT/HCPCS: 36415; 80053; 83036; 84153; 85025; G0103

== ENCOUNTER → 2024-12-12 | Outpatient (CLI) | payer OTHER, SELFPAY ==
[2024-12-12 13:42] LABS: Absolute Neutrophil Count 5.5 X10^3/uL (2.0-7.7); Basophil# 0.09 X10^3/uL; Eosinophil# 0.36 X10^3/uL; Eosinophils% 3.9 % (0-5); Hematocrit 38.3 % (40-54); Hemoglobin 12.6 g/dL (13.0-16.5); Lymphocyte % 25.1 % (19-41); Mean Corp Hgb Conc 32.9 g/dL (32-36); Mean Platelet Vol. 10.9 fl (6.2-12.0); Monocyte# 0.92 X10^3/uL; NRBC Flagged by Analyzer 0 % (0-5); Neutrophil # 5.48 X10^3/uL (2.7-7.7); Neutrophil % 59.8 % (47-70); Platelet Count 355 K/mm3 (150-450); RBC Distribution Width CV 13.9 % (11.6-14.6); RBC Distribution Width SD 44.6 fl (35.1-43.9); Red Blood Count 4.35 M/mm3 (4.6-6.2); White Blood Count 9.2 K/mm3 (4.4-11.0)
[2024-12-12 14:10] LABS: ALB/GLOB Ratio 1.5 RATIO (0.9-2.4); AST(SGOT) 24 U/L (<=37); Alanine Aminotransfer ALT/SGPT 18 U/L (<=46); Albumin, Serum 4.3 g/dL (3.4-4.8); Alkaline Phosphatase 62 U/L (40-129); Anion Gap 9 (5-15); BUN 16 mg/dL (4-19); BUN/Creat Ratio 15.1 RATIO (10-20); Calcium,Total 10.1 mg/dL (7.6-11.0); Carbon Dioxide 24.2 mmol/L (21.0-32.0); Chloride 101 mmol/L (98-108); Creatinine, Serum 1.06 mg/dL (0.70-1.20); EST Glomerular Filtration Rate 79 (>60); Globulin 2.8 g/dL (2.2-4.2); Glucose 110 mg/dL (70-99); Protein, Total 7.2 g/dL (5.9-8.4); Sodium Level 134 mmol/L (133-145)
[2024-12-15 16:21] LABS: Ferritin 241 ng/mL (37-417); Iron 99 ug/dL (65-175); Iron Binding Capacity,Total 358 ug/dL (250-450); Iron Binding Capacity,Unsat 259 ug/dL (228-428)
== END | disposition home or self-care (01) ==
LOC: BIMLAB 08:50
PROVIDERS: PCP Internal Medicine; Referring Provider Internal Medicine; Visit Provider Internal Medicine
DX: I10 Essential (primary) hypertension (principal); D64.9 Anemia, unspecified
CPT/HCPCS: 36415; 80053; 82728; 83540; 83550; 85025

== ENCOUNTER → 2024-12-18 | Outpatient (CLI) | payer OTHER, SELFPAY | END | disposition home or self-care (01) | LOC: LABSPEC 07:41 | PROVIDERS: PCP Internal Medicine; Referring Provider Internal Medicine; Visit Provider Internal Medicine | DX: D64.9 Anemia, unspecified (principal) | CPT/HCPCS: 82274 ==

== ENCOUNTER 2025-01-20 06:26 | Day surgery (SDC) | payer OTHER, SELFPAY ==
[2025-01-20] VITALS (7 sets, daily range): BP systolic 93–133; BP diastolic 60–81; PULSE 53–67; RESP 16–18; TEMP 36.2–36.7; O2SAT 92–98; BMI 32.1
--- OUTSIDE RECORDS SUMMARY | 2025-01-20 06:29 | XMS RPT_ITS | CCD ---
Author Organization [facility] CliniSyar Care Team Providers Care Contact Lens Manufacturer Name Role Phone Anderson FURNITURE STAINER, FURNITURE STAINER-C Pillo Primary Care Provider Anderson FURNITURE STAINER, FURNITURE STAINER-C Pillo Attending Provider [phone] Dr. Ximena Gagnon Referring Provider [phone] Donna Becerril Attending Provider Unavailable Anderson FURNITURE STAINER, FURNITURE STAINER-C Pillo Primary Care Provider Anderson FURNITURE STAINER, FURNITURE STAINER-C Pillo Attending Provider [phone] Dr. Ximena Gagnon Referring Provider [phone] Donna Becerril Attending Provider Unavailable Anderson FURNITURE STAINER, FURNITURE STAINER-C Pillo Referring Provider [phone] Dr. Michoacano Gil Attending Provider Dr. Michoacano Gil Other Provider Anderson FURNITURE STAINER, FURNITURE STAINER-C Pillo Primary Care Provider Anderson FURNITURE STAINER, FURNITURE STAINER-C Pillo Referring Provider [phone] Dr. Ximena Gagnon Attending Provider [phone] Anderson FURNITURE STAINER, FURNITURE STAINER-C Pillo Primary Care Provider Anderson FURNITURE STAINER, FURNITURE STAINER-C Pillo Referring Provider [phone] Dr. Ximena Gagnon Attending Provider [phone] Dr. Ximena Gagnon MD Primary Care Provider Dr. Ximena Gagnon MD Referring Provider [phone] Dr. Toi Mcdowell DO Attending Provider Dr. Ximena Gagnon MD Attending Provider [phone] Julio César BROWN, Dr. López Attending Provider Zan Casanova MD Attending Provider Chelsi BROWN, Dr. Bueno Primary Care Provider Chelsi BROWN, Dr. Bueno Referring Provider Jeffery BROWN, Dr. Ríos Attending Provider Oleghe, Efewongbe Primary Care Unavailable Oleghe, Efewongbe Referring Unavailable NatalierusoToi Attending Unavailable Oleghe, Efewongbe Primary Care Unavailable Oleghe, Efewongbe Referring Unavailable Noe Cameron Attending Unavailable Oleghe, Efewongbe Primary Care Unavailable Toi Mcdowell Referring Unavailable BorsoosoToi Attending Unavailable Oleghe, Efewongbe Primary Care Unavailable Oleghe, Efewongbe Referring Unavailable Michoacano Gil Attending Unavailable Oleghe, Efewongbe Primary Care Unavailable Oleghe, Efewongbe Referring Unavailable Oleghe, Efewongbe Attending Unavailable Oleghe, Efewongbe Primary Care Unavailable Pillo Anderson NP Referring Unavailable Oleghe, Efewongbe Attending Unavailable Oleghe, Efewongbe Primary Care Unavailable Oleghe, Efewongbe Referring Unavailable Toi Mcdowell Attending Unavailable Oleghe, Efewongbe Primary Care Unavailable Noe Cameron Referring Unavailable Noe Cameron Attending Unavailable Oleghe, Efewongbe Primary Care Unavailable Oleghe, Efewongbe Referring Unavailable Oleghe, Efewongbe Attending Unavailable Oleghe, Efewongbe Primary Care Unavailable Toi Mcdowell Referring Unavailable ShavonsoToi Attending Unavailable Oleghe, Efewongbe Primary Care Unavailable Oleghe, Efewongbe Referring Unavailable Toi Mcdowell Attending Unavailable Oleghe, Efewongbe Primary Care Unavailable Oleghe, Efewongbe Referring Unavailable Oleghe, Efewongbe Attending Unavailable Oleghe, Efewongbe Primary Care Unavailable Oleghe, Efewongbe Referring Unavailable Oleghe, Efewongbe Attending Unavailable Oleghe, Efewongbe Referring Unavailable Oleghe, Efewongbe Primary Care Unavailable Michoacano Gil Attending Unavailable Oleghe, Efewongbe Primary Care Unavailable Oleheshame, Efewongbe Referring Unavailable Oleheshame, Efewongbe Attending Unavailable Oleghe, Efewongbe Referring Unavailable Oleghe, Efewongbe Primary Care Unavailable Oleheshame, Efewongbe Attending Unavailable Oleghe, Efewongbe Primary Care Unavailable Niraj Angelaril Attending Unavailable Oleheshame, Efewongbe Primary Care Unavailable Oleheshame, Efewongbe Referring Unavailable Zan Casanova Attending Unavailable Oleheshame, Efewongbe Primary Care Unavailable Oleheshame, Efewongbe Referring Unavailable Toi Mcdowell Attending Unavailable Oleheshame, Efewongbe Primary Care Unavailable Rene Angela Attending Unavailable Allergies Allergy Classification Reported Allergen(s) Allergy Type Date of Onset Reaction(s) Facility (8 sources) Penicillins Allergy to substance 09-05-2022 unknown [facility] (1 source) Penicillins Drug allergy (disorder) 01-16-2025 [facility] Repository Medications Current Medications Medication Drug Class(es) Dates Sig (Normalized) Sig (Original) aspirin 81 mg oral tablet (8 sources) Platelet Aggregation Inhibitor, Nonsteroidal Anti-inflammatory Drug Start: 05-16-2021 take 1 capsule by mouth once daily Aspirin 81 mg capsule Active 81 mg PO DAILY May 16, 2021 12:00am fexofenadine hydrochloride 60 mg oral tablet (8 sources) Histamine-1 Receptor Antagonist Start: 09-05-2022 take 1 tablet by mouth once daily Fexofenadine (Rosalinda Allergy) 60 mg tablet Active 60 mg PO DAILY September 05, 2022 1:00am ibuprofen 200 mg oral capsule (3 sources) Nonsteroidal Anti-inflammatory Drug Start: 08-29-2024 take 1 capsule by mouth every six hours as needed Ibuprofen 200 mg capsule Active 200 mg PO EVERY 6 HOURS as needed August 29, 2024 1:00am indomethacin 50 mg oral capsule (1 source) Nonsteroidal Anti-inflammatory Drug Start: 05-16-2021 take 50 mg by mouth three times daily at mealtime Indomethacin Active 50 MG PO THREE TIMES A DAY May 15, 2021 11:00pm administer with food or milk Multivitamin preparation (5 sources) Start: 05-16-2021 take 1 tablet by mouth once daily Multivitamin Active 1 TABLET PO DAILY May 16, 2021 12:00am Start: 05-16-2021 take 1 tablet by juan manuel th once daily Multivitamin Active 1 TABLET PO DAILY May 15, 2021 11:00pm Multivitamin tablet (3 sources) Start: 05-16-2021 Multivitamin t ablet Active 1 {tbl} PO DAILY May 16, 2021 12:00am phentermine hydrochloride 37.5 mg oral tablet (7 sources) Sympathomimetic Amine Anorectic Start: 09-08-2024 End: 12-30-2024 Phentermine (Adipex-P) 37.5 mg tablet Active 18.75 mg PO daily December 30, 2024 10:37am must administer 30 minutes before or 1-2 hours after breakfast Completed/Discontinued Medications Medication Drug Class(es) Dates Sig (Normalized) Sig (Original) allopurinol 100 mg oral tablet (20 sources) Xanthine Oxidase Inhibitor Start: 05-19-2021 End: 08-29-2022 take 1 tablet by mouth once daily Allopurinol 100 mg tablet Discontinued 100 mg PO DAILY July 19, 2021 10:58am September 16, 2021 4:37pm amLODIPine 10 mg oral tablet (16 sources) Dihydropyridine Calcium Channel Eloisa Start: 08-15-2021 End: 08-29-2022 take 1 tablet by mouth once daily Amlodipine 10 mg tablet Discontinued 10 mg PO DAILY September 16, 2021 4:37pm August 29, 2022 9:09am atenolol 50 mg oral tablet (20 sources) beta-Adrenergic Eloisa Start: 05-19-2021 End: 08-20-2023 take 1 tablet by mouth once daily Atenolol 50 mg tablet Discontinued 50 mg PO DAILY May 22, 2022 10:57am August 29, 2022 9:23am Start: 05-16-2021 End: 05-19-2021 take 1 tablet by mouth once daily Atenolol 25 mg tablet Discontinued 25 mg PO DAILY May 16, 2021 12:00am May 19, 2021 3:11pm hydroCHLOROthiazide 12.5 mg / lisinopril 20 mg oral tablet (10 sources) Thiazide Diuretic, Angiotensin Converting Enzyme Inhibitor Start: 12-27-2022 End: 12-17-2024 Lisinopril-Hydrochlorothiazi de 20-12.5 mg tablet Discontinued 1 {tbl} PO DAILY December 26, 2023 12:03pm December 17, 2024 1:09pm Start: 12-27-2022 take 1 tablet by juan manuel th once daily Lisinopril-Hydrochlorothiazide Active 1 TABLET PO DAILY December 27, 2022 12:00am lisinopril 10 mg oral tablet (15 sources) Angiotensin Converting Enzyme Inhibitor Start: 11-21-2022 End: 03-07-2024 take 2 tablets by mouth once daily Lisinopril 10 mg tablet Discontinued 20 mg PO daily November 21, 2022 10:44am March 07, 2024 8:06am Start: 11-21-2022 take 20 mg by mouth once daily Lisinopril Active 20 MG PO daily November 21, 2022 10:44am Start: 08-29-2022 End: 11-21-2022 take 1 tablet by mouth once daily Lisinopril 10 mg tablet Discontinued 10 mg PO daily August 29, 2022 1:00am November 21, 2022 10:44am rosuvastatin calcium 20 mg oral tablet (13 sources) HMG-CoA Reductase Inhibitor Start: 12-11-2023 End: 10-09-2024 take 1 tablet by mouth once daily Rosuvastatin 20 mg tablet Discontinued 20 mg PO DAILY April 08, 2024 12:36pm October 09, 2024 5:55pm Start: 09-14-2023 End: 12-11-2023 Rosuvastatin 20 mg tablet Di scontinued 20 mg PO DAILY September 14, 2023 1:00am December 11, 2023 5:01pm 1/2 tablet x 2 weeks then increase to 1 tablet Problems Active Problems Problem Classification Problem Date Documented Da te Episodic/Chronic Deficiency and other anemia (3 sources) Anemia; Translations: [Anemia, unspecified] 12-15-2024 Episodic Deficiency and other anemia (1 source) Anemia, unspecified; Translations: [Anemia, unspecified] Onset: 12-23-2024 Episodic Diabetes mellitus without complication (14 sources) Prediabetes; Translations: [Prediabetes] Onset: 12-12-2024 09-06-2023 Episodic Disorders of lipid metabolism (11 sources) Hyperlipidemia; Translations: [Hyperlipidemia, unspecified] 05-16-2021 Chronic Essential hypertension (20 sources) Hypertensive disorder; Translations: [Essential (primary) hypertension] Onset: 12-16-2024 05-16-2021 Chronic Gout and other crystal arthropathies (9 sources) Gout; Translations: [Gout, unspecified] Onset: 03-10-2024 05-16-2021 Chronic Immunizations and screening for infectious disease (16 sources) Contact with or exposure to other viral diseases; Translations: [Exposure to confirmed case of COVID-19] 08-19-2021 Episodic Osteoarthritis (6 sources) Osteoarthritis of right knee joint; Translations: [Unilateral primary osteoarthritis, right knee] Onset: 08-29-2024 03-10-2024 Chronic Other connective tissue disease (8 sources) Foot pain; Translations: [Pain in right foot] 08-15-2021 Episodic Other connective tissue disease (3 sources) Muscle pain; Translations: [Myalgia, unspecified site] 07-10-2024 Episodic Other gastrointestinal disorders (2 sources) Occult blood in stools; Translations: [Other fecal abnormalities] 12-18-2024 Episodic Other non-traumatic joint disorders (3 sources) Knee joint effusion; Translations: [Effusion, unspecified knee] 03-10-2024 Episodic Other non-traumatic joint disorders (9 sources) Shoulder pain; Translations: [Pain in right shoulder] 09-08-2024 Episodic Other nutritional; endocrine; and metabolic disorders (14 sources) Body mass index 30+ - obesity; Translations: [Obesity, unspecified] 09-16-2021 Chronic Other nutritional; endocrine; and metabolic disorders (2 sources) Obesity, unspecified; Translations: [Obesity, unspecified] 09-06-2023 Chronic Residual codes; unclassified (8 sources) History of colonoscopy; Translations: [Other specified postprocedural states] 09-05-2022 Episodic Unclassified (6 sources) Bilateral shoulder pain; Translations: [M25.511 - Pain in right shoulder,M25.512 - Pain in left shoulder] Past or Other Problems Problem Classification Problem Date Documented Da te Episodic/Chronic Other connective tissue disease (1 source) Myalgia, unspecified site; Translations: [Myalgia, unspecified site] Onset: 08-11-2024 Episodic Other non-traumatic joint disorders (1 source) Pain in right shoulder; Translations: [Pain in right shoulder] Onset: 09-12-2024 Episodic Other non-traumatic joint disorders (1 source) Pain in left shoulder; Translations: [Pain in left shoulder] Onset: 09-12-2024 Episodic Other non-traumatic joint disorders (1 source) Effusion, right knee; Translations: [Effusion, right knee] Onset: 04-30-2024 Episodic Other non-traumatic joint disorders (1 source) Pain in right knee; Translations: [Pain in right knee] Onset: 03-10-2024 Episodic Other screening for suspected conditions (not mental disorders or infectious disease) (14 sources) Patient encounter status; Translations: [Encounter for screening for malignant neoplasm of colon] Onset: 09-08-2024 09-05-2022 Episodic Results Test Name Value Interpretation Reference Range Facility Surgery Visit Reporton 12-31 Surgery Visit Report [facility] [address] [place] [address]. [address] [place] [address] OFFICE VISIT Date of Service: 12/31/24 MR#: [id number] Acct: [id number] Name: YARED PEPE (ROB) Rep #: [id number] : 1960 Provider: Dr. 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 Accompanied by: Self Is patient in pain?: No Allergies Penicillins Allergy (Unknown, Verified 12/31/24 10:48) unknown Medications ???Medication ???Instructions ???Recorded ???Confirmed ???Type aspirin 81 mg capsule 81 mg PO DAILY 05/16/21 12/31/24 H istory multivitamin 1 tab PO DAILY 05/16/21 12/31/24 H istory fexofenadine 60 mg tablet (Rosalinda 60 mg PO DAILY 09/05/22 12/31/24 History Allergy) atenolol 50 mg tablet 50 mg PO DAILY #90 tabs 08/20/23 0 12/31/24 Rx ibuprofen 200 mg capsule 200 mg PO Q6H PRN 08/29/24 5 History rosuvastatin 20 mg tablet 20 mg PO DAILY #90 tabs 10/09/24 0 12/31/24 Rx lisinopril 20 1 tab PO DAILY #90 tabs 12/17/24 0 12/31/24 Rx mg-hydrochlorothiazide 12.5 mg tablet phentermine 37.5 mg tablet 18.75 mg (1/2 x 37.5 mg) PO QDAY 0 12/30/24 12/31/24 Rx (Adipex-P) #30 tabs PFSH Medical History Positive occult stool blood test Anemia Screening for prostate cancer Bilateral shoulder pain Borderline type 2 diabetes mellitus Alcohol use Non-smoker History of stress test History of deviated nasal septum Encounter for preventative adult health care examination Obesity (BMI 30-39.9) Need for shingles vaccine Bilateral foot pain Health care maintenance Hyperlipemia Hypertension Gout Surgical History Hx of knee surgery History of colonoscopy Family History Father Heart disease Daughter No problems noted. Mother Breast cancer Grandmother Colon cancer Grandfather Heart disease Social History adopted: No household members: spouse current occupational status: employed current occupation: [employer] pets and animals: No Smoking Status: Never smoker alcohol intake: current alcohol intake frequency: holidays/special occasions only substance use type: does not use caffeine: Yes (3-4) Type: carbonated beverages what type of physical activity do you participate in: none seatbelt use: always do you feel safe at home: Yes HPI HPI HPI: Patient is a 64-year-old male here for iron deficiency anemia and positive fecal occult blood. Patient is on aspirin. He denies abdominal pain. He had his last colonoscopy about 3 years ago. This was normal. He denies any gross blood in the stool. ROS General General: No weight change, fatigue, colon cancer or breast cancer HEENT HEENT: No difficulty swallowing, eye injury, eye surgery or swollen glands Endo Endocrine: No thyroid disease, diabetes mellitus or thyroid cancer Skin Skin: No rash or changing moles Musc Musculoskeletal: No back problems, arthritis, rheumatoid arthritis or gout Cardio Cardiovascular: No murmur, pacemaker, heart disease, atrial fibrillation, high blood pressure, heart attack or heart stent Psych Psychiatric: No depression or anxiety Resp Respiratory: No shortness of breath, No sleep apnea, No cough, No COPD, No asthma and No emphysema Gastro Gastrointestinal: No abdominal pain, No nausea or vomiting, No diarrhea, No constipation, No blood in stool, No acid reflux, No hemorrhoids, No ulcers, No gallbladder problem and No black,tarry stools Alek Hematologic: Yes blood thinners, No blood disorders, No bleeding, No anemia and No blood clots Neuro Neurologic: No numbness and No tingling Exam Const General: cooperative Orientation: alert and oriented x3 HENMT Head: normal to inspection Neck Neck: normal visual inspection and full ROM Chest Chest palpation inspection: normal inspection of the chest Resp Effort Inspection: normal respiratory effort Auscultation: clear to auscultation bilaterally Cardio Rate: regular rate Rhythm: regular rhythm GI Inspection: non-distended Palpation: soft and nontender Skin General: no rashes or lesions noted (more content not included)... Normal [facility] Stool Occult Blood iFOBon STOB Comments: x3 Normal Reference Range = Negative Immunochemical Fecal Occult Blood (iFOBT) method. Hemoccult Stl Ql IA Limitation: Menstrual bleeding, constipation bleeding, bleeding hemorrhoids, and urinary bleeding conditions may interfere with test. Occult Blood A Positive A OCCULT BLOOD POSITIVE Normal [facility] Comment on above: Performed By: #### M 100.7900 ####[facility] [address] [place], [place], [address] Stool gastrointestinal hemog lobin detection by immunologic methodOrdered By: Ximena Gagnon on 12-18-2024 Lower GI hemoglobin IA Ql (Stl) Positive Abnormal [facility] Ferritinon 12-15-2024 Ferritin [Mass/Vol] 241 ng/mL Normal 37-417 [facility] Comment on above: Performed By: #### L 503.6550, L503.6030 ####[facility] [address] [place], [address] Iron+Iron Binding Capacityon 12-15-2024 Iron [Mass/Vol] 99 ug/dL Normal 65-175 [facility] Comment on above: Performed By: #### L 503.6550, L503.6030 ####[facility] [address] [place], [address] IRON SATURATION 28.0 Normal 9-55 [facility] Comment on above: Performed By: #### L 503.6550, L503.6030 ####[facility] [address] [place], [address] TIBC 358 ug/dL Normal 250-450 [facility] Comment on above: Performed By: #### L 503.6550, L503.6030 ####[facility] [address] [place], [address] UIBC 259 ug/dL Normal 228-428 [facility] Comment on above: Performed By: #### L 503.6550, L503.6030 ####[facility] [address] [place], [address] Absolute lymphocyte countOrd ered By: Ximena Gagnon on 12-12-2024 Lymphocytes Auto (Unsp spec) [#/Vol] 2.30 10*3/uL 0.83-4.51 [facility] Absolute neutrophil countOrd ered By: Ximena Gagnon on 12-12-2024 Neutrophils (Bld) [#/Vol] 5.5 10*3/uL 2.0-7.7 [facility] Anion gap in Serum or Plasma Ordered By: Ximena Gagnon on 12-12-2024 Anion gap [Moles/Vol] 9 mmol/L 5-15 [facility] Automated lymphocyte count a s percentage of total leukocytesOrdered By: Ximena Gagnon on 12-12-2024 Lymphocytes/100 WBC Auto (Unsp spec) 25.1 % 19-41 [facility] BUN/creatinine ratioOrdered By: Ximena Gagnon on 12-12-2024 Urea nitrogen/Creatinine [Mass ratio] 15.1 mg/mg 10-20 [facility] Basophil percentageOrdered B y: Ximena Gagnon on 12-12-2024 Basophils/100 WBC (Bld) 1.0 % 0-1 [facility] Bilirubin, totalOrdered By: Ximena Gagnon on 12-12-2024 Bilirubin [Mass/Vol] 0.40 mg/dL 0.00-1.30 [facility] CBC W/Diff, Automatedon Absolute Lymph 2.30 X10 3/uL Normal 0.83-4.51 [facility] Comment on above: Performed By: #### L 500.4050, L100.0100 ####[facility] [address] [place], [address] Absolute Neut 5.5 X10 3/uL Normal 2.0-7.7 [facility] Comment on above: Performed By: #### L 500.4050, L100.0100 ####[facility] [address] [place], [address] Basophils/100 WBC (Bld) 1.0 % Normal 0-1 [facility] Comment on above: Performed By: #### L 500.4050, L100.0100 ####[facility] [address] [place], [address] Eosinophils/100 WBC (Bld) 3.9 % Normal 0-5 [facility] Comment on above: Performed By: #### L 500.4050, L100.0100 ####[facility] [address] [place], [address] Erythrocyte distribution width (RBC) [Ratio] 13.9 % Normal 11.6-14.6 [facility] Comment on above: Performed By: #### L 500.4050, L100.0100 ####[facility] [address] [place], [address] Hematocrit (Bld) [Volume fraction] 38.3 % Low 40-54 [facility] Comment on above: Performed By: #### L 500.4050, L100.0100 ####[facility] [address] [place], [address] Hemoglobin (Bld) [Mass/Vol] 12.6 g/dL Low 13.0-16.5 [facility] Comment on above: Performed By: #### L 500.4050, L100.0100 ####[facility] [address] [place], [address] IG% 0.200 Normal 0.0-0.9 [facility] Comment on above: Result Comment: IG% - Immature Granulocytes (promyelocytes, myelocytes and metamyelocytes) > 1% indicates that a LEFT SHIFT is Present. Performed By: #### L 500.4050, L100.0100 ####[facility] [address] [place], [address] Lymphocytes/100 WBC (Bld) 25.1 % Normal 19-41 [facility] Comment on above: Performed By: #### L 500.4050, L100.0100 ####[facility] [address] [place], [address] MCH (RBC) [Entitic mass] 29.0 pg Normal 27.0-32.0 [facility] Comment on above: Performed By: #### L 500.4050, L100.0100 ####[facility] [address] [place], [address] MCHC (RBC) [Mass/Vol] 32.9 g/dL Normal 32-36 [facility] Comment on above: Performed By: #### L 500.4050, L100.0100 ####[facility] [address] [place], [address] MCV (RBC) [Entitic vol] 88.0 fL Normal 80-94 [facility] Comment on above: Performed By: #### L 500.4050, L100.0100 ####[facility] [address] [place], [address] Monocytes/100 WBC (Bld) 10.0 % Normal 0-10 [facility] Comment on above: Performed By: #### L 500.4050, L100.0100 ####[facility] [address] [place], [address] Neutrophils/100 WBC (Bld) 59.8 % Normal 47-70 [facility] Comment on above: Performed By: #### L 500.4050, L100.0100 ####[facility] [address] [place], [address] Nucleated RBC (Bld) [#/Vol] 0 10*3/uL Normal 0-5 [facility] Comment on above: Performed By: #### L 500.4050, L100.0100 ####[facility] [address] [place], [address] Platelet mean volume (Bld) [Entitic vol] 10.9 fL Normal 6.2-12.0 [facility] Comment on above: Performed By: #### L 500.4050, L100.0100 ####[facility] [address] [place], [address] Platelets (Bld) [#/Vol] 355 10*3/uL Normal 150-450 [facility] Comment on above: Performed By: #### L 500.4050, L100.0100 ####[facility] [address] [place], [address] RBC (Bld) [#/Vol] 4.35 10*6/uL Low 4.6-6.2 [facility] Comment on above: Performed By: #### L 500.4050, L100.0100 ####[facility] [address] [place], [address] RDW SD 44.6 fl High 35.1-43.9 [facility] Comment on above: Performed By: #### L 500.4050, L100.0100 ####[facility] [address] [place], [address] WBC (Bld) [#/Vol] 9.2 10*3/uL Normal 4.4-11.0 [facility] Comment on above: Performed By: #### L 500.4050, L100.0100 ####[facility] [address] [place], [address] Carbon dioxide, total [Moles /volume] in Central venous bloodOrdered By: Ximena Gagnon on 12-12-2024 CO2 [Moles/Vol] 24.2 mmol/L 21.0-32.0 [facility] Chloride assayOrdered By: Reyes Gagnon on 12-12-2024 Chloride [Moles/Vol] 101 mmol/L 98-108 [facility] Comprehensive Metabolic Prof ilon 12-12-2024 Albumin [Mass/Vol] 4.3 g/dL Normal 3.4-4.8 [facility] Comment on above: Performed By: #### L 500.4050, L100.0100 ####[facility] [address] [place], [address] Albumin/Globulin [Mass ratio] 1.5 {ratio} Normal 0.9-2.4 [facility] Comment on above: Performed By: #### L 500.4050, L100.0100 ####[facility] [address] [place], [address] ALK PHOS 62 U/L Normal 40-129 [facility] Comment on above: Performed By: #### L 500.4050, L100.0100 ####[facility] [address] [place], [address] ALT [Catalytic activity/Vol] 18 U/L Normal <=46 [facility] Comment on above: Performed By: #### L 500.4050, L100.0100 ####[facility] [address] [place], [address] AST [Catalytic activity/Vol] 24 U/L Normal <=37 [facility] Comment on above: Performed By: #### L 500.4050, L100.0100 ####[facility] [address] [place], [address] Bilirubin [Mass/Vol] 0.40 mg/dL Normal 0.00-1.30 [facility] Comment on above: Performed By: #### L 500.4050, L100.0100 ####[facility] [address] [place], [address] BUN/CRE 15.1 RATIO Normal 10-20 [facility] Comment on above: Performed By: #### L 500.4050, L100.0100 ####[facility] [address] [place], [address] Calcium [Mass/Vol] 10.1 mg/dL Normal 7.6-11.0 [facility] Comment on above: Performed By: #### L 500.4050, L100.0100 ####[facility] [address] [place], [address] Chloride [Moles/Vol] 101 mmol/L Normal 98-108 [facility] Comment on above: Performed By: #### L 500.4050, L100.0100 ####[facility] [address] [place], [address] CO2 [Moles/Vol] 24.2 mmol/L Normal 21.0-32.0 [facility] Comment on above: Performed By: #### L 500.4050, L100.0100 ####[facility] [address] [place], [address] Creatinine [Mass/Vol] 1.06 mg/dL Normal 0.70-1.20 [facility] Comment on above: Performed By: #### L 500.4050, L100.0100 ####[facility] [address] [place], [address] GAP 9 Normal 5-15 [facility] Comment on above: Performed By: #### L 500.4050, L100.0100 ####[facility] [address] [place], [address] GFR/1.73 sq M.predicted among non-blacks MDRD (S/P/Bld) [Vol rate/Area] 79 mL/min/{1.73_m2} Normal >60 [facility] Comment on above: Result Comment: mL/m in/1.73m2 CKD-EPI Creatinine Equation (2020) Performed By: #### L 500.4050, L100.0100 ####[facility] [address] [place], [address] Globulin (S) [Mass/Vol] 2.8 g/dL Normal 2.2-4.2 [facility] Comment on above: Performed By: #### L 500.4050, L100.0100 ####[facility] [address] [place], [address] Glucose [Mass/Vol] 110 mg/dL High 70-99 [facility] Comment on above: Performed By: #### L 500.4050, L100.0100 ####[facility] [address] [place], [address] Potassium [Moles/Vol] 5.0 mmol/L Normal 3.3-5.1 [facility] Comment on above: Performed By: #### L 500.4050, L100.0100 ####[facility] [address] [place], [address] Sodium [Moles/Vol] 134 mmol/L Normal 133-145 [facility] Comment on above: Performed By: #### L 500.4050, L100.0100 ####[facility] [address] [place], [address] T PROT 7.2 g/dL Normal 5.9-8.4 [facility] Comment on above: Performed By: #### L 500.4050, L100.0100 ####[facility] [address] [place], [address] Urea nitrogen [Mass/Vol] 16 mg/dL Normal 4-19 [facility] Comment on above: Performed By: #### L 500.4050, L100.0100 ####[facility] [address] [place], [address] Eosinophil percentageOrdered By: Ximena Gagnon on 12-12-2024 Eosinophils/100 WBC (Bld) 3.9 % 0-5 [facility] Erythrocyte distribution wid th ratioOrdered By: Ximena Gagnon on 12-12-2024 Erythrocyte distribution width (RBC) [Ratio] 13.9 % 11.6-14.6 [facility] Erythrocyte distribution wid th standard deviationOrdered By: Ximena Gagnon on 12-12-2024 Erythrocyte distribution width (RBC) [Ratio] 44.6 fl High 35.1-43.9 [facility] Glomerular filtration rate ( GFR) estimation/1.73 sq m using serum, plasma, or whole bOrdered By: Ximena Gagnon on 12-12-2024 GFR/1.73 sq M.predicted among non-blacks MDRD (S/P/Bld) [Vol rate/Area] 79 mL/min/{1.73_m2} >60 [facility] Comment on above: mL/min/1.73m2 CKD-EP I Creatinine Equation (2020) Hematocrit Auto (Bld) [Volum e fraction]Ordered By: Ximena Gagnon on 12-12-2024 Hematocrit (Bld) [Volume fraction] 38.3 % Low 40-54 [facility] Hemoglobin measurementOrdere d By: Ximena Gagnon on 12-12-2024 Hemoglobin (Bld) [Mass/Vol] 12.6 g/dL Low 13.0-16.5 [facility] Immature granulocytes/100 WB C Auto (Bld)Ordered By: Ximena Gagnon on 12-12-2024 Immature granulocytes/100 WBC (Bld) 0.200 % 0.0-0.9 [facility] Comment on above: IG% - Immature Granu locytes (promyelocytes, myelocytes and metamyelocytes) > 1% indicates that a LEFT SHIFT is Present. Internal Medicine Office Vis itocata 12-12-2024 Internal Medicine Office Visit [facility] [address] [place] [address] [place] [address] OFFICE VISIT Date of Service: 12/12/24 MR#: [id number] Acct: [id number] Name: YARED PEPE VICENTARoger CORTES Rep #: [id number] : 1960 Provider: Dr. Ximena fisher MD Age/Sex: 64/M Location: [facility] Status: Signed Intake Vital Signs 09/08/24 08:02 09/11/24 08:47 12/12/24 08:13 Height 5 ft 8 in 5 ft 8 in 5 ft 8 in Weight: 212 lb BMI 32.2 BP 130/70 H Blood Pressure Location Lt brachial Position Sitting Respiration 16 Pulse 66 Pulse Source Monitor Temp 96.3 F L Temp Source Temporal Pulse Oximetry (%) 99 Oxygen Delivery Method room air Intake Visit Reasons: 3 M FU Chief Complaint: Follow-up 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 Accompanied by: Self Is patient in pain?: No Allergies Penicillins Allergy (Unknown, Verified 12/12/24 08:11) unknown Medications ???Medication ???Instructions ???Recorded ???Confirmed ???Type aspirin 81 mg capsule 81 mg PO DAILY 10/11/21 05/09/25 H istory multivitamin 1 tab PO DAILY 05/16/21 12/12/24 H istory fexofenadine 60 mg tablet (Rosalinda 60 mg PO DAILY 09/05/22 12/12/24 History Allergy) atenolol 50 mg tablet 50 mg PO DAILY #90 tabs 08/20/23 0 12/12/24 Rx lisinopril 20 1 tab PO DAILY #90 tabs 12/26/23 0 12/12/24 Rx mg-hydrochlorothiazide 12.5 mg tablet ibuprofen 200 mg capsule 200 mg PO Q6H PRN 08/29/24 5 History rosuvastatin 20 mg tablet 20 mg PO DAILY #90 tabs 10/09/24 0 12/12/24 Rx phentermine 37.5 mg tablet 18.75 mg (1/2 x 37.5 mg) PO QDAY 0 11/04/24 12/12/24 Rx (Adipex-P) #30 tabs Have you fallen in the past year?: No PFSH Medical History Screening for prostate cancer Bilateral shoulder pain Borderline type 2 diabetes mellitus Alcohol use Non-smoker History of stress test History of deviated nasal septum Encounter for preventative adult health care examination Obesity (BMI 30-39.9) Need for shingles vaccine Bilateral foot pain Health care maintenance Hyperlipemia Hypertension Gout Surgical History Hx of knee surgery History of colonoscopy Family History Father Heart disease Daughter No problems noted. Mother Breast cancer Grandmother Colon cancer Grandfather Heart disease Social History adopted: No household members: spouse current occupational status: employed current occupation: [employer] pets and animals: No Smoking Status: Never smoker alcohol intake: current alcohol intake frequency: holidays/special occasions only substance use type: does not use caffeine: Yes (3-4) Type: carbonated beverages what type of physical activity do you participate in: none seatbelt use: always do you feel safe at home: Yes HPI HPI Chief Complaint: Follow-up Details: YARED PEPE (ROB), is a 64 M who presents to the office today for follow-up of his chronic conditions. No acute concerns at this time. At his last visit, started on Adipex for weight loss. He states that he has tolerated this medication well without any significant concerns. Lost 13 pounds since his last visit. Denies palpitations, elevated blood pressure or shortness of breath. No significant change in bowel movement either. Has been monitoring his blood pressure and heart rate at home. History of borderline diabetes, A1c today is at 6.1 up from 5.6. He admits that he may have been eating more sweets lately. Other chronic medical conditions are stable. ROS Const Constitutional: No body ache, excessive sweating, fatigue, fever(s), frequent falls, headache(s), snoring, weakness, weight change, sleep problems or change in appetite Eyes Eyes: No blurry vision, change in vision, bulging eyes, floaters, eye pain or Light sensitivity ENT ENT: No abnormal hearing, ear or mastoid pain, tinnitus, balance problems, nosebleed/epistaxis, nasal congestion, headache(s), neck pain or sore throat Resp Respiratory: No cough, excessive phlegm production, pain on inspiration, shortness of breath, snoring or wheezing Cardio Cardiology: No chest pain at rest, chest pain with exertion, excessive sweating, shortness of breath, dyspnea on exertion, lightheadedness, orthopnea or palpitations Gastro GI: No abdominal pain, change in bowel habits, constipation, cramping, diarrhea, nausea/dyspepsia or vomiting Genitourinary Male: No burning urination, painful urination, urinary incontinence, urinary frequency, blood in urine or suprapubic fullness Musc Musculoskeletal: No abnormal gait, joint pain, back pain, limited range of motion, neck pain, numbness, stiffness, t (more content not included)... Normal [facility] Iron measurement (mass/mass) Ordered By: Ximena Gagnon on 12-12-2024 Iron (Unsp spec) [Mass/Mass] 99 ug/dL 65-175 [facility] - Chemistry and C hemistry - challengeOrdered By: Ximena Gagnon on 12-12-2024 AST [Catalytic activity/Vol] 24 U/L <38 [facility] MCV (mean corpuscular volume ) determinationOrdered By: Ximena Gagnon on 12-12-2024 MCV (RBC) [Entitic vol] 88.0 fL 80-94 [facility] Mean corpuscular hemoglobin (MCH) determinationOrdered By: Ximena Gagnon on 12-12-2024 MCH (RBC) [Entitic mass] 29.0 pg 27.0-32.0 [facility] Mean corpuscular hemoglobin concentration (MCHC) determinationOrdered By: Ximena Gagnon on 12-12-2024 MCHC (RBC) [Mass/Vol] 32.9 g/dL 32-36 [facility] Mean platelet volume determi nationOrdered By: Ximena Gagnon on 12-12-2024 Platelet mean volume (Bld) [Entitic vol] 10.9 fL 6.2-12.0 [facility] Monocyte percentageOrdered B y: Ximena Gagnon on 12-12-2024 Monocytes/100 WBC (Bld) 10.0 % 0-10 [facility] Neutrophil percentageOrdered By: maxim Gagnon on 12-12-2024 Neutrophils/100 WBC (Bld) 59.8 % 47-70 [facility] No Panel InformationOrdered By: Ximena Gagnon on 12-12-2024 Unsaturated Iron Binding Capacity 259 ug/dL 228-428 [facility] Nucleated red blood cell per centageOrdered By: Ximena Gagnon on 12-12-2024 Nucleated RBC/100 WBC (Bld) [Ratio] 0 % 0-5 [facility] Platelet countOrdered By: Reyes Gagnon on 12-12-2024 Platelets (Bld) [#/Vol] 355 10*3/uL 150-450 [facility] Potassium measurement (mass/ volume)Ordered By: Ximena Gagnon on 12-12-2024 Potassium (Unsp spec) [Mass/Vol] 5.0 mmol/L 3.3-5.1 [facility] RBC Auto (Bld) [#/Vol]Ordere d By: Ximena Gagnon on 12-12-2024 RBC (Bld) [#/Vol] 4.35 10*6/uL Low 4.6-6.2 [facility] Serum creatinine measurement (mass/volume)Ordered By: Ximena Gagnon on 12-12-2024 Creatinine [Mass/Vol] 1.06 mg/dL 0.70-1.20 [facility] Serum globulin measurementOr dered By: Ximena Gagnon on 12-12-2024 Globulin (S) [Mass/Vol] 2.8 g/dL 2.2-4.2 [facility] Serum glucose measurement (m ass/volume)Ordered By: Ximena Gagnon on 12-12-2024 Glucose [Mass/Vol] 110 mg/dL High 70-99 [facility] Serum or plasma alanine arriaga otransferase (ALT) measurementOrdered By: Ximena Gagnon on 12-12-2024 ALT [Catalytic activity/Vol] 18 U/L <47 [facility] Serum or plasma albumin mary urement (mass/volume)Ordered By: Ximena Gagnon on 12-12-2024 Albumin [Mass/Vol] 4.3 g/dL 3.4-4.8 [facility] Serum or plasma albumin/glob ulin mass ratioOrdered By: Ximena Gagnon on 12-12-2024 Albumin/Globulin [Mass ratio] 1.5 {ratio} 0.9-2.4 [facility] Serum or plasma alkaline faustino sphatase measurementOrdered By: Ximena Gagnon on 12-12-2024 ALP [Catalytic activity/Vol] 62 U/L 40-129 [facility] Serum or plasma calcium mary urement (mass/volume)Ordered By: Ximena Gagnon on 12-12-2024 Calcium [Mass/Vol] 10.1 mg/dL 7.6-11.0 [facility] Serum or plasma ferritin frederick surement (mass/volume)Ordered By: Ximena Gagnon on 12-12-2024 Ferritin [Mass/Vol] 241 ng/mL 37-417 [facility] Serum or plasma iron saturat ion measurement (mass fraction)Ordered By: Ximena Gagnon on 12-12-2024 Iron saturation [Mass fraction] 28.0 % 9-55 [facility] Serum or plasma urea nitroge n measurement (mass/volume)Ordered By: Ximena Gagnon on 12-12-2024 Urea nitrogen [Mass/Vol] 16 mg/dL 4-19 [facility] Sodium levelOrdered By: Sam Gagnon on 12-12-2024 Sodium [Moles/Vol] 134 mmol/L 133-145 [facility] Total proteinOrdered By: James Gagnon on 12-12-2024 Protein [Mass/Vol] 7.2 g/dL 5.9-8.4 [facility] White blood cell (WBC) count Ordered By: Ximena Gagnon on 12-12-2024 WBC (Bld) [#/Vol] 9.2 10*3/uL 4.4-11.0 [facility] Orthopedic Visit Reporton Orthopedic Visit Report [facility] [address] [place] [address] [address] [place] [address] OFFICE VISIT Date of Service: 09/12/24 MR#: [id number] Acct: [id number] Name: YARED PEPE SabinaSOCO CORTES Rep #: [id number] : 1960 Provider: Dr. Zan duarte MD Age/Sex: 64/M Location: [facility] Status: Signed with Addenda ADDENDUM by Lucila Raya on 09/12/24 at 0826 Office Procedure Documentation entered by Lucila Raya 09/12/24 08:26: Ortho Injections Injections Yes Subacromial Injection Bilateral Is this a patient provided medication?: No Details: Obtained consent for injection. Under sterile conditions, injected the patients bilateral subacromial shoulder with 2.0mL Kenalog and 4.0mL Bupivacaine in each shoulder. The patient tolerated the injection well without any noted complication. Patient should call our office if redness develops, pain worsens or if they have any concerns. Office Meds Kenalog 40 mg/mL suspension for injection Performing Provider: Zan Casanova MD Performing Location: [facility] Administered by: Zan Casanova MD on 09/12/24 08:24 Dose Route Admin Location Dispensed Lot Number Expiration Date FELICITA Horn ufacturer 160 mg intra-articular Bilateral Shoulder 4 mL [id number] 12/04/25 4529-7544- 28 [facility] Date cc: * Signed Intake Vital Signs 09/08/24 08:02 09/11/24 08:47 Height 5 ft 8 in 5 ft 8 in Weight: 225 lb BMI 34.2 BP 112/70 Blood Pressure Location Rt brachial Position Sitting Respiration 12 Pulse 50 L Pulse Source Monitor Temp 97.4 F L Temp Source Temporal Pulse Oximetry (%) 99 Oxygen Delivery Method room air Intake Visit Reasons: BL SHOULDER Accompanied by: Self Allergies Penicillins Allergy (Unknown, Verified 09/12/24 07:58) unknown Medications ???Medication ???Instructions ???Recorded ???Confirmed ???Type aspirin 81 mg capsule 81 mg PO DAILY 05/16/21 09/12/24 H istory multivitamin 1 tab PO DAILY 05/16/21 09/12/24 H istory fexofenadine 60 mg tablet (Rosalinda 60 mg PO DAILY 09/05/22 09/12/24 History Allergy) atenolol 50 mg tablet 50 mg PO DAILY #90 tabs 08/20/23 0 09/12/24 Rx lisinopril 20 1 tab PO DAILY #90 tabs 12/26/23 0 09/12/24 Rx mg-hydrochlorothiazide 12.5 mg tablet rosuvastatin 20 mg tablet 20 mg PO DAILY #90 tabs 04/08/24 0 09/12/24 Rx ibuprofen 200 mg capsule 200 mg PO Q6H PRN 08/29/24 5 History phentermine 37.5 mg tablet 18.75 mg (1/2 x 37.5 mg) PO QDAY 0 09/08/24 09/12/24 Rx (Adipex-P) #30 tabs PFSH Medical History Screening for prostate cancer Bilateral shoulder pain Borderline type 2 diabetes mellitus Alcohol use Non-smoker History of stress test History of deviated nasal septum Encounter for preventative adult health care examination Obesity (BMI 30-39.9) Need for shingles vaccine Bilateral foot pain Health care maintenance Hyperlipemia Hypertension Gout Surgical History Hx of knee surgery History of colonoscopy Family History Father Heart disease Daughter No problems noted. Mother Breast cancer Grandmother Colon cancer Grandfather Heart disease Social History adopted: No household members: spouse current occupational status: employed current occupation: [employer] pets and animals: No Smoking Status: Never smoker alcohol intake: current alcohol intake frequency: holidays/special occasions only substance use type: does not use caffeine: Yes (3-4) Type: carbonated beverages what type of physical activity do you participate in: none seatbelt use: always do you feel safe at home: Yes HPI BL SHOULDER Details: This documentation accurately reflects the service provided and the decisions made by me, Dr. Zan aCsanova MD 09/12/24 7164. Part of today???s visit was documented by [ ], acting as scribe. YARED PEPE (ROB) is a 64 year old M here today for bilateral shoulder pain. 2 months. lateral side. right one side is worse, RHD. no trauma. worse with lifting buckets of feed or lifting above shoulder. worse at night. better with propping. tx - nsaids. no PT. Supplemental Info [facility] Imaging Services [address], [place] [id number] Shoulder min 2 Views MR#: [id number] Acct: [id number] Name: YARED PEPE (ROB) Rep #: [id number] : 1960 M 64 From: [place] Santa MD PCP: Dr. Ximena Gagnon MD (more content not included)... Normal [facility] Absolute lymphocyte countOrd ered By: Ximena Gagnon on 09-08-2024 Lymphocytes Auto (Unsp spec) [#/Vol] 2.41 10*3/uL 0.83-4.51 [facility] Absolute neutrophil countOrd ered By: Ximena Gagnon on 09-08-2024 Neutrophils (Bld) [#/Vol] 6.3 10*3/uL 2.0-7.7 [facility] Albumin to globulin ratioOrd ered By: maxim Gagnon on 09-08-2024 Albumin/Globulin [Mass ratio] 1.0 {ratio} 0.9-2.4 [facility] Automated lymphocyte count a s percentage of total leukocytesOrdered By: Ximena Giovannyheshammaynor on 09-08-2024 Lymphocytes/100 WBC Auto (Unsp spec) 23.5 % 19-41 [facility] Basophil percentageOrdered B y: Ximena Gagnon on 09-08-2024 Basophils/100 WBC (Bld) 0.8 % 0-1 [facility] Bilirubin, totalOrdered By: maxim Gagnon on 09-08-2024 Bilirubin [Mass/Vol] 0.50 mg/dL 0.20-1.00 [facility] Comment on above: For patients on eltr ombopag therapy, use of Dimension [place] TBIL is not recommended. Blood urea nitrogen (BUN)/cr eatinine ratioOrdered By: carminejosephine Baltazarterrance on 09-08-2024 Urea nitrogen/Creatinine [Mass ratio] 15.1 mg/mg 10-20 [facility] CBC W/Diff, Automatedon Absolute Lymph 2.41 X10 3/uL Normal 0.83-4.51 [facility] Comment on above: Performed By: #### L 500.4050, L501.9910, L100.0100, L501.9985 #### [facility] [address] [place], [address] Absolute Neut 6.3 X10 3/uL Normal 2.0-7.7 [facility] Comment on above: Performed By: #### L 500.4050, L501.9910, L100.0100, L501.9985 #### [facility] [address] [place], [address] Basophils/100 WBC (Bld) 0.8 % Normal 0-1 [facility] Comment on above: Performed By: #### L 500.4050, L501.9910, L100.0100, L501.9985 #### [facility] [address] [place], [address] Eosinophils/100 WBC (Bld) 5.1 % High 0-5 [facility] Comment on above: Performed By: #### L 500.4050, L501.9910, L100.0100, L501.9985 #### [facility] [address] [place], [address] Erythrocyte distribution width (RBC) [Ratio] 13.9 % Normal 11.6-14.6 [facility] Comment on above: Performed By: #### L 500.4050, L501.9910, L100.0100, L501.9985 #### [facility] [address] [place], [address] Hematocrit (Bld) [Volume fraction] 38.8 % Low 40-54 [facility] Comment on above: Performed By: #### L 500.4050, L501.9910, L100.0100, L501.9985 #### [facility] [address] [place], [address] Hemoglobin (Bld) [Mass/Vol] 12.5 g/dL Low 13.0-16.5 [facility] Comment on above: Performed By: #### L 500.4050, L501.9910, L100.0100, L501.9985 #### [facility] [address] [place], [address] IG% 0.300 Normal 0.0-0.9 [facility] Comment on above: Result Comment: IG% - Immature Granulocytes (promyelocytes, myelocytes and metamyelocytes) > 1% indicates that a LEFT SHIFT is Present. Performed By: #### L 500.4050, L501.9910, L100.0100, L501.9985 #### [facility] [address] [place], [address] Lymphocytes/100 WBC (Bld) 23.5 % Normal 19-41 [facility] Comment on above: Performed By: #### L 500.4050, L501.9910, L100.0100, L501.9985 #### [facility] [address] [place], [address] MCH (RBC) [Entitic mass] 27.8 pg Normal 27.0-32.0 [facility] Comment on above: Performed By: #### L 500.4050, L501.9910, L100.0100, L501.9985 #### [facility] [address] [place], [address] MCHC (RBC) [Mass/Vol] 32.2 g/dL Normal 32-36 [facility] Comment on above: Performed By: #### L 500.4050, L501.9910, L100.0100, L501.9985 #### [facility] [address] [place], [address] MCV (RBC) [Entitic vol] 86.2 fL Normal 80-94 [facility] Comment on above: Performed By: #### L 500.4050, L501.9910, L100.0100, L501.9985 #### [facility] [address] [place], [address] Monocytes/100 WBC (Bld) 8.9 % Normal 0-10 [facility] Comment on above: Performed By: #### L 500.4050, L501.9910, L100.0100, L501.9985 #### [facility] [address] [place], [address] Neutrophils/100 WBC (Bld) 61.4 % Normal 47-70 [facility] Comment on above: Performed By: #### L 500.4050, L501.9910, L100.0100, L501.9985 #### [facility] [address] [place], [address] Nucleated RBC (Bld) [#/Vol] 0 10*3/uL Normal 0-5 [facility] Comment on above: Performed By: #### L 500.4050, L501.9910, L100.0100, L501.9985 #### [facility] [address] [place], [address] Platelet mean volume (Bld) [Entitic vol] 11.7 fL Normal 6.2-12.0 [facility] Comment on above: Performed By: #### L 500.4050, L501.9910, L100.0100, L501.9985 #### [facility] [address] [place], [address] Platelets (Bld) [#/Vol] 317 10*3/uL Normal 150-450 [facility] Comment on above: Performed By: #### L 500.4050, L501.9910, L100.0100, L501.9985 #### [facility] [address] [place], [address] RBC (Bld) [#/Vol] 4.50 10*6/uL Low 4.6-6.2 [facility] Comment on above: Performed By: #### L 500.4050, L501.9910, L100.0100, L501.9985 #### [facility] [address] [place], [address] RDW SD 43.6 fl Normal 35.1-43.9 [facility] Comment on above: Performed By: #### L 500.4050, L501.9910, L100.0100, L501.9985 #### [facility] [address] [place], [address] WBC (Bld) [#/Vol] 10.3 10*3/uL Normal 4.4-11.0 [facility] Comment on above: Performed By: #### L 500.4050, L501.9910, L100.0100, L501.9985 #### [facility] [address] [place], [address] Carbon dioxide measurementOr dered By: Ximena Gagnon on 09-08-2024 CO2 [Moles/Vol] 26.0 mmol/L 21.0-32.0 [facility] Chloride measurementOrdered By: Ximena Gagnon on 09-08-2024 Chloride [Moles/Vol] 104 mmol/L 98-107 [facility] Comprehensive Metabolic Prof ilon 09-08-2024 Albumin [Mass/Vol] 3.9 g/dL Normal 3.2-5.0 [facility] Comment on above: Performed By: #### L 500.4050, L501.9910, L100.0100, L501.9985 #### [facility] [address] [place], [address] Albumin/Globulin [Mass ratio] 1.0 {ratio} Normal 0.9-2.4 [facility] Comment on above: Performed By: #### L 500.4050, L501.9910, L100.0100, L501.9985 #### [facility] [address] [place], [address] ALK P 58 U/L Normal 45-117 [facility] Comment on above: Performed By: #### L 500.4050, L501.9910, L100.0100, L501.9985 #### [facility] [address] [place], [address] ALT [Catalytic activity/Vol] 26 U/L Normal 16-61 [facility] Comment on above: Performed By: #### L 500.4050, L501.9910, L100.0100, L501.9985 #### [facility] [address] [place], [address] AST [Catalytic activity/Vol] 15 U/L Normal 15-37 [facility] Comment on above: Performed By: #### L 500.4050, L501.9910, L100.0100, L501.9985 #### [facility] [address] [place], [address] Bilirubin [Mass/Vol] 0.50 mg/dL Normal 0.20-1.00 [facility] Comment on above: Result Comment: For patients on eltrombopag therapy, use of Dimension [place] TBIL is not recommended. Performed By: #### L 500.4050, L501.9910, L100.0100, L501.9985 #### [facility] [address] [place], [address] BUN/CRE 15.1 RATIO Normal 10-20 [facility] Comment on above: Performed By: #### L 500.4050, L501.9910, L100.0100, L501.9985 #### [facility] [address] [place], [address] CA,Total 10.1 mg/dL Normal 8.5-10.1 [facility] Comment on above: Performed By: #### L 500.4050, L501.9910, L100.0100, L501.9985 #### [facility] [address] [place], [address] Chloride [Moles/Vol] 104 mmol/L Normal 98-107 [facility] Comment on above: Performed By: #### L 500.4050, L501.9910, L100.0100, L501.9985 #### [facility] [address] [place], [address] CO2 [Moles/Vol] 26.0 mmol/L Normal 21.0-32.0 [facility] Comment on above: Performed By: #### L 500.4050, L501.9910, L100.0100, L501.9985 #### [facility] [address] [place], [address] Creatinine [Mass/Vol] 1.19 mg/dL Normal 0.70-1.30 [facility] Comment on above: Result Comment: The validity of the calculated GFR GFRAA in patients over 70 years has not been determined. Clinical correlation is essential. Performed By: #### L 500.4050, L501.9910, L100.0100, L501.9985 #### [facility] [address] [place], [address] EST GFR - AA 80 mL/min Normal >60 [facility] Comment on above: Result Comment: Afri can Swedish GFR Calc Performed By: #### L 500.4050, L501.9910, L100.0100, L501.9985 #### [facility] [address] [place], [address] GAP 8 Normal 5-15 [facility] Comment on above: Performed By: #### L 500.4050, L501.9910, L100.0100, L501.9985 #### [facility] [address] [place], [address] GFR/1.73 sq M.predicted among non-blacks MDRD (S/P/Bld) [Vol rate/Area] 66 mL/min/{1.73_m2} Normal >60 [facility] Comment on above: Result Comment: Non- GFR Calc Performed By: #### L 500.4050, L501.9910, L100.0100, L501.9985 #### [facility] [address] [place], [address] Globulin (S) [Mass/Vol] 3.8 g/dL Normal 2.2-4.2 [facility] Comment on above: Performed By: #### L 500.4050, L501.9910, L100.0100, L501.9985 #### [facility] [address] [place], [address] Glucose [Mass/Vol] 117 mg/dL High 74-106 [facility] Comment on above: Result Comment: Fast ing Glucose result from 100 to 125 mg/dL suggests IMPAIRED HOMEOSTASIS per A.D.A. criteria. Performed By: #### L 500.4050, L501.9910, L100.0100, L501.9985 #### [facility] [address] [place], [address] Potassium [Moles/Vol] 4.9 mmol/L Normal 3.5-5.1 [facility] Comment on above: Performed By: #### L 500.4050, L501.9910, L100.0100, L501.9985 #### [facility] [address] [place], [address] Sodium [Moles/Vol] 138 mmol/L Normal 136-145 [facility] Comment on above: Performed By: #### L 500.4050, L501.9910, L100.0100, L501.9985 #### [facility] [address] [place], [address] T PROT 7.7 g/dL Normal 6.4-8.2 [facility] Comment on above: Performed By: #### L 500.4050, L501.9910, L100.0100, L501.9985 #### [facility] [address] [place], [address] Urea nitrogen [Mass/Vol] 18 mg/dL Normal 7-18 [facility] Comment on above: Performed By: #### L 500.4050, L501.9910, L100.0100, L501.9985 #### [facility] [address] [place], [address] Eosinophil percentageOrdered By: Ximena Gagnon on 09-08-2024 Eosinophils/100 WBC (Bld) 5.1 % High 0-5 [facility] Erythrocyte distribution wid th ratioOrdered By: [facility] Gagnon on 09-08-2024 Erythrocyte distribution width (RBC) [Ratio] 13.9 % 11.6-14.6 [facility] Erythrocyte distribution wid th standard deviationOrdered By: [facility] Centerj[facility]phine Baltazarmaynor on 09-08-2024 Erythrocyte distribution width (RBC) [Ratio] 43.6 fl 35.1-43.9 [facility] Glomerular filtration rate ( GFR) estimationOrdered By: [facility] Center[facility]ine Gagnon on 09-08-2024 GFR/1.73 sq M.predicted among non-blacks MDRD (S/P/Bld) [Vol rate/Area] 66 mL/min/{1.73_m2} >60 [facility] Comment on above: Non- GFR Calc Glucose measurementOrdered B y: Ximena Gagnon on 09-08-2024 Glucose [Mass/Vol] 117 mg/dL High 74-106 [facility] Comment on above: Fasting Glucose resu lt from 100 to 125 mg/dL suggests IMPAIRED HOMEOSTASIS per A.D.A. criteria. Hematocrit Auto (Bld) [Volum e fraction]Ordered By: Ximena Parkmaynor on 09-08-2024 Hematocrit (Bld) [Volume fraction] 38.8 % Low 40-54 [facility] Hemoglobin A1con 09-08-2024 HbA1c (Bld) [Mass fraction] 5.6 % Normal 3.8-5.6 [facility] Comment on above: Result Comment: Norm al < 5.7 % Prediabetic 5.7 - 6.4 % Diabetic >or= 6.5 % Please note range changes. Performed By: #### L 500.4050, L501.9910, L100.0100, L501.9985 #### [facility] [address] [place], [address] Hemoglobin A1c percentageOrd ered By: Ximena Gagnon on 09-08-2024 HbA1c (Bld) [Mass fraction] 5.6 % 3.8-5.6 [facility] Comment on above: Normal < 5.7 % Predi abetic 5.7 - 6.4 % Diabetic >or= 6.5 % Please note range changes. Hemoglobin measurementOrdere d By: Ximena Gagnon on 09-08-2024 Hemoglobin (Bld) [Mass/Vol] 12.5 g/dL Low 13.0-16.5 [facility] Immature granulocytes/100 WB C Auto (Bld)Ordered By: Ximena Gagnon on 09-08-2024 Immature granulocytes/100 WBC (Bld) 0.300 % 0.0-0.9 [facility] Comment on above: IG% - Immature Granu locytes (promyelocytes, myelocytes and metamyelocytes) > 1% indicates that a LEFT SHIFT is Present. Internal Medicine Office Vis iton 09-08-2024 Internal Medicine Office Visit [facility] [address] [place] [address] [place] [address] OFFICE VISIT Date of Service: 09/08/24 MR#: [id number] Acct: [id number] Name: YARED PEPEHUBERTRoger CORTES Rep #: [id number] : 1960 Provider: Dr. Ximena fisher MD Age/Sex: 64/M Location: [facility] Status: Signed Intake Vital Signs 03/07/24 08:05 07/10/24 14:46 09/08/24 08:02 Height 5 ft 8 in 5 ft 8 in 5 ft 8 in Weight: 225 lb BMI 34.2 BP 112/70 Blood Pressure Location Rt brachial Position Sitting Respiration 12 Pulse 50 L Pulse Source Monitor Temp 97.4 F L Temp Source Temporal Pulse Oximetry (%) 99 Oxygen Delivery Method room air Intake Visit Reasons: 6 M FU Chief Complaint: Follow-up chronic conditions. 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 Accompanied by: Self Is patient in pain?: No Allergies Penicillins Allergy (Unknown, Verified 09/08/24 07:57) unknown Medications ???Medication ???Instructions ???Recorded ???Confirmed ???Type aspirin 81 mg capsule 81 mg PO DAILY 05/16/21 09/08/24 H istory multivitamin 1 tab PO DAILY 05/16/21 09/08/24 H istory fexofenadine 60 mg tablet (Rosalinda 60 mg PO DAILY 09/05/22 09/08/24 History Allergy) atenolol 50 mg tablet 50 mg PO DAILY #90 tabs 08/20/23 0 09/08/24 Rx lisinopril 20 1 tab PO DAILY #90 tabs 12/26/23 0 09/08/24 Rx mg-hydrochlorothiazide 12.5 mg tablet rosuvastatin 20 mg tablet 20 mg PO DAILY #90 tabs 04/08/24 0 09/08/24 Rx ibuprofen 200 mg capsule 200 mg PO Q6H PRN 08/29/24 5 History phentermine 37.5 mg tablet 18.75 mg (1/2 x 37.5 mg) PO QDAY 0 09/08/24 09/08/24 Rx (Adipex-P) #30 tabs Have you fallen in the past year?: No PFSH Medical History (Updated 09/08/24 @ 10:[address] Ximena Gagnon MD) Screening for prostate cancer Bilateral shoulder pain Borderline type 2 diabetes mellitus Alcohol use Non-smoker History of stress test History of deviated nasal septum Encounter for preventative adult health care examination Obesity (BMI 30-39.9) Need for shingles vaccine Bilateral foot pain Health care maintenance Hyperlipemia Hypertension Gout Surgical History Hx of knee surgery History of colonoscopy Family History Father Heart disease Daughter No problems noted. Mother Breast cancer Grandmother Colon cancer Grandfather Heart disease Social History adopted: No household members: spouse current occupational status: employed current occupation: [employer] pets and animals: No Smoking Status: Never smoker alcohol intake: current alcohol intake frequency: holidays/special occasions only substance use type: does not use caffeine: Yes (3-4) Type: carbonated beverages what type of physical activity do you participate in: none seatbelt use: always do you feel safe at home: Yes HPI HPI Chief Complaint: Follow-up chronic conditions. Details: YARED PEPE (ROB), is a 64 M who presents to the office today for follow-up of his chronic conditions. Also has some concerns. At his visit a few months ago, he had made some lifestyle/dietary changes and lost some weight. However, since his last visit, he has regained a few more pounds and back up from a BMI of 32-34. He reports difficulty with maintaining his weight loss. Feels well overall. No chest pain, palpitations or shortness of breath. History of hypertension, his blood pressure is optimal. Taking his medications consistently. He would like help with weight loss. Reports ongoing bilateral shoulder pain. Was seen for an acute visit due to bilateral presentation, he had labs to rule out an inflammatory process. These came back negative. Pain is said to be worse at rest and in certain positions. Able to carry out his activities without any significant limitation. 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 Other chronic medical conditions are stable. ROS Const Constitutional: No body ache, excessive sweating, fatigue, fever(s), frequent falls, headache(s), snoring, weakness, weight change, sleep problems or change in appetite Eyes Eyes: No blurry vision, change in vision, bulging eyes, floaters, visual disturbances, eye pain or Light sensitivity ENT ENT: No abnormal hearing, ear or mastoid pain, tinnitus, balance problems, nosebleed/epistaxis, nasal congestion, headache(s), neck pain or sore throat Resp Respiratory: No cough, excessive phlegm production, pain on inspiration, shortness of breath, snoring or wheezing Cardio Cardiology: No chest pain at rest, chest pain with exertion, excessive sweating, shortness of breath, dyspnea on exertion, lightheadedness, orthopnea or palpitations Gastro GI: (more content not included)... Normal [facility] - Chemistry and C hemistry - challengeOrdered By: Ximena Gagnon on 09-08-2024 AST [Catalytic activity/Vol] 15 U/L 15-37 [facility] MCV (mean corpuscular volume ) determinationOrdered By: Ximena Gagnon on 09-08-2024 MCV (RBC) [Entitic vol] 86.2 fL 80-94 [facility] Mean corpuscular hemoglobin (MCH) determinationOrdered By: Ximena Gagnon on 09-08-2024 MCH (RBC) [Entitic mass] 27.8 pg 27.0-32.0 [facility] Mean corpuscular hemoglobin concentration (MCHC) determinationOrdered By: Ximena Gagnon on 09-08-2024 MCHC (RBC) [Mass/Vol] 32.2 g/dL 32-36 [facility] Mean platelet volume determi nationOrdered By: Ximena Gagnon on 09-08-2024 Platelet mean volume (Bld) [Entitic vol] 11.7 fL 6.2-12.0 [facility] Monocyte percentageOrdered B y: Ximena Gagnon on 09-08-2024 Monocytes/100 WBC (Bld) 8.9 % 0-10 [facility] Neutrophil percentageOrdered By: josedimondalejosephine Gagnon on 09-08-2024 Neutrophils/100 WBC (Bld) 61.4 % 47-70 [facility] Nucleated red blood cell per centageOrdered By: maxim Gagnon on 09-08-2024 Nucleated RBC/100 WBC (Bld) [Ratio] 0 % 0-5 [facility] PSA,Total - Annual Screenon 09-08-2024 PSA,TOT SCREEN 0.94 ng/mL Normal 0.00-4.00 [facility] Comment on above: Result Comment: This test was performed using the TPSA assay method for the [employer] chemistry system. Values obtained with different assay methods cannot be used interchangably. When changing PSA assays in the course of monitoring a patient, additional sequential testing should be carried out to confirm baseline values. Performed By: #### L 500.4050, L501.9910, L100.0100, L501.9985 #### [facility] [address] [place], [address] Platelet countOrdered By: Reyes Gagnon on 09-08-2024 Platelets (Bld) [#/Vol] 317 10*3/uL 150-450 [facility] Potassium measurementOrdered By: Ximena Gagnon on 09-08-2024 Potassium [Moles/Vol] 4.9 mmol/L 3.5-5.1 [facility] RBC Auto (Bld) [#/Vol]Ordere d By: Ximena Gagnon on 09-08-2024 RBC (Bld) [#/Vol] 4.50 10*6/uL Low 4.6-6.2 [facility] Serum anion gap measurementO rdered By: Ximena Gagnon on 09-08-2024 Anion gap [Moles/Vol] 8 mmol/L 5-15 [facility] Serum globulin measurementOr dered By: Ximena Gagnon on 09-08-2024 Globulin (S) [Mass/Vol] 3.8 g/dL 2.2-4.2 [facility] Serum or plasma alanine arriaga otransferase (ALT) measurementOrdered By: Ximena Gagnon on 09-08-2024 ALT [Catalytic activity/Vol] 26 U/L 16-61 [facility] Serum or plasma albumin mary urement (mass/volume)Ordered By: Ximena Gagnon on 09-08-2024 Albumin [Mass/Vol] 3.9 g/dL 3.2-5.0 [facility] Serum or plasma alkaline faustino sphatase measurementOrdered By: Ximena Gagnon on 09-08-2024 ALP [Catalytic activity/Vol] 58 U/L 45-117 [facility] Serum or plasma calcium mary urement (mass/volume)Ordered By: Ximena Gagnon on 09-08-2024 Calcium [Mass/Vol] 10.1 mg/dL 8.5-10.1 [facility] Serum or plasma creatinine m easurement (mass/volume)Ordered By: Ximena Gagnon on 09-08-2024 Creatinine [Mass/Vol] 1.19 mg/dL 0.70-1.30 [facility] Comment on above: The validity of the calculated GFR & GFRAA in patients over 70 years has not been determined. Clinical correlation is essential. Serum or plasma urea nitroge n measurement (mass/volume)Ordered By: Ximena Gagnon on 09-08-2024 Urea nitrogen [Mass/Vol] 18 mg/dL 7-18 [facility] Shoulder min 2 Viewson 09-08 Shoulder min 2 Views [facility] [address] [place] [address] Shoulder min 2 Views MR#: [id number] Acct: [id number] Name: YARED PEPE (ROB) Rep #: [id number] : 1960 M 64 From: Pillo Santa MD PCP: Dr. Ximena Gagnon MD Status: DEP AMB Study: Shoulder min 2 Views Date of Exam: 09/08/24 Exam# [id number] Ordering Dr: Ximena Gagnon MD EXAM: XR Right Shoulder Complete, 2 or More Views CLINICAL INDICATION: TECHNIQUE: Two or more views of the right shoulder. COMPARISON: No relevant prior studies available. FINDINGS: BONES/JOINTS: Unremarkable. No acute fracture. No dislocation. SOFT TISSUES: Unremarkable. RAD/Shoulder min 2 Views IMPRESSION: No acute fracture. Reading Location: [facility] CC: Dr. Ximena Gagnon MD Vocational Services Specialist: Signed Normal [facility] Shoulder min 2 Views [facility] [address] [place], [place] [address] [phone] Shoulder min 2 Views MR#: [id number] Acct: [id number] Name: YARED PEPE (ROB) Rep #: [id number] : 1960 M 64 From: Pillo Santa MD PCP: Dr. Ximena Gagnon MD Status: DEP AMB Study: Shoulder min 2 Views Date of Exam: 09/08/24 Exam# [id number] Ordering Dr: Ximena Gagnon MD EXAM: XR Left Shoulder Complete, 2 or More Views CLINICAL INDICATION: TECHNIQUE: Two or more views of the left shoulder. COMPARISON: No relevant prior studies available. FINDINGS: BONES/JOINTS: Unremarkable. No acute fracture. No dislocation. SOFT TISSUES: Unremarkable. RAD/Shoulder min 2 Views IMPRESSION: No acute fracture. Reading Location: [facility] CC: Dr. Ximena Gagnon MD Vocational Services Specialist: Signed Normal [facility] Sodium levelOrdered By: Sam Gagnon on 09-08-2024 Sodium [Moles/Vol] 138 mmol/L 136-145 [facility] Total proteinOrdered By: James Gagnon on 09-08-2024 Protein [Mass/Vol] 7.7 g/dL 6.4-8.2 [facility] White blood cell (WBC) count Ordered By: Ximena Gagnon on 09-08-2024 WBC (Bld) [#/Vol] 10.3 10*3/uL 4.4-11.0 [facility] Orthopedic Visit Reporton Orthopedic Visit Report [facility] [address] [place] [address] [address] [place] [address] OFFICE VISIT Date of Service: 08/29/24 MR#: [id number] Acct: [id number] Name: YARED PEPE (HUBERTRoger CORTES Rep #: [id number] : 1960 Provider: Dr. Toi puentes DO Age/Sex: 64/M Location: [facility] Status: Signed Intake Vital Signs 07/10/24 14:46 Height 5 ft 8 in Weight: 227 lb BMI 34.4 BP 128/82 H Blood Pressure Location Lt brachial Position Sitting Respiration 17 Pulse 71 Pulse Source Monitor Temp 97.3 F L Temp Source Temporal Pulse Oximetry (%) 95 Oxygen Delivery Method room air Intake Visit Reasons: RIGHT KNEE Chief Complaint: right knee Allergies Penicillins Allergy (Unknown, Verified 08/29/24 08:06) unknown Medications ???Medication ???Instructions ???Recorded ???Confirmed ???Type aspirin 81 mg capsule 81 mg PO DAILY 05/16/21 08/29/24 History multivitamin 1 tab PO DAILY 05/16/21 08/29/24 History fexofenadine 60 mg tablet (Rosalinda 60 mg PO DAILY 09/05/22 08/29/24 History Allergy) atenolol 50 mg tablet 50 mg PO DAILY #90 tabs 08/20/23 07/10/24 Rx lisinopril 20 1 tab PO DAILY #90 tabs 12/26/23 08/29/24 Rx mg-hydrochlorothiazide 12.5 mg tablet rosuvastatin 20 mg tablet 20 mg PO DAILY #90 tabs 04/08/24 08/29/24 Rx ibuprofen 200 mg capsule 200 mg PO Q6H PRN 08/29/24 08/29/24 History PFSH Medical History Borderline type 2 diabetes mellitus Alcohol use Non-smoker History of stress test History of deviated nasal septum Encounter for preventative adult health care examination Obesity (BMI 30-39.9) Need for shingles vaccine Bilateral foot pain Health care maintenance Hyperlipemia Hypertension Gout Surgical History Hx of knee surgery History of colonoscopy Family History Father Heart disease Daughter No problems noted. Mother Breast cancer Grandmother Colon cancer Grandfather Heart disease Social History adopted: No household members: spouse current occupational status: employed current occupation: [employer] pets and animals: No Smoking Status: Never smoker alcohol intake: current alcohol intake frequency: holidays/special occasions only substance use type: does not use caffeine: Yes (3-4) Type: carbonated beverages what type of physical activity do you participate in: none seatbelt use: always do you feel safe at home: Yes HPI RIGHT KNEE Chief Complaint: right knee Details: This documentation accurately reflects the service provided and the decisions made by me, Dr. Toi Mcdowell, DO 08/29/24 0733. Part of today???s visit was documented by Cadence LAM, acting as scribe. YARED PEPE (ROB) is a 64 year old M here 08/29/2024: Hubert is here he states he has not had any significant pain lately and really it is not causing him any limitations at this point he does complain of some stiffness he has been taking ibuprofen for his shoulder which has helped his knee as well he denies any mechanical symptoms. 04/30/2024: Patient notes that he is here to review his right knee MRI. Patient notes that he continues to have knee pain. He complains of pain over his entire knee. He notes that he has a cons tant achiness and a sharp pain with a certain movements. He is taking ibuprofen for pain. 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 Explained his options- knee arthroscopy considering the size of the meniscus tear and not sure that this is the cause of his recurrent knee effusion. To recall we have checked him for crystal analysis which was negative and is MRI is otherwise unremarkable except for cartilage wear of his patella which could be the other source. Spoke with him about his other options- knee aspiration and steroid injection, viscosupplementation injection which would be more helpful for pain once the effusion is resolved, oral anti-inflammatory, total knee arthroplasty. Patient should really ice his knee and decrease his activities after any injection. Patient wanted to proceed with an injection and aspiration, and if it returns quickly again we may consider diagnostic knee arthroscopy partial lateral meniscectomy . 04/11/2024: Patient is still having the pain. Patient states the pain comes and goes. Patient is taking Ibuprofen 600mg TID for most days. Patient states his pain depends on what he did the day before. Patient states he hasn't used ice or heat. He states that the injection we gave him last time helped about 80 (more content not included)... Normal [facility] LISA w/ Reflex Mult Confirmon 07-15-2024 LISA,DIRECT Negative Normal Negative [facility] Comment on above: Performed By: #### L 4600.0100, L3100.5450, L505.7010, L101.9900, L501.6710, L7000.5300 ####[facility] [address] [place], [address] CCP IgG Antibodieson 024 CCP IgG Ab. 7 units Normal 0-19 [facility] Comment on above: Result Comment: Nega tive <20 Weak positive 20 - 39 Moderate positive 40 - 59 Strong positive >59 Performed at: [facility] [address], [place] [id number] Weigher Packing: Raj Jansen PhD, Phone: [phone] Performed By: #### L 4600.0100, L3100.5450, L505.7010, L101.9900, L501.6710, L7000.5300 ####[facility] [address] [place], [address] Lyme Screen W/Reflex WBon LYME SCREEN Ab Negative Normal Negative [facility] Comment on above: Result Comment: Lyme antibodies not detected. Reflex testing is not indicated. No laboratory evidence of infection with B. burgdorferi (Lyme disease). Negative results may occur in patients recently infected (less than or equal to 14 days) with B. burgdorferi. If recent infection is suspected, repeat testing on a new sample collected in 7 to 14 days is recommended. Performed By: #### L 4600.0100, L3100.5450, L505.7010, L101.9900, L501.6710, L7000.5300 ####[facility] [id number] [place], [address] CRPon 07-10-2024 C-REACTIVE PROT 30.70 mg/L High 0.0-3.0 [facility] Comment on above: Result Comment: C-Re active Protein (CRP) provides useful information for the diagnosis, therapy and monitoring of inflammatory processes and associated diseases. For the evaluation of Relative Risk for Cardiovascular Disease, a High Sensitivity CRP (HSCRP) should be ordered. Performed By: #### L 4600.0100, L3100.5450, L505.7010, L101.9900, L501.6710, L7000.5300 ####[facility] [id number] [place], [address] Erythrocyte Sed Rateon 07-10 SED RATE 20 mm/hr Normal 0-20 [facility] Comment on above: Performed By: #### L 4600.0100, L3100.5450, L505.7010, L101.9900, L501.6710, L7000.5300 #### [facility] [place] [address], [address] Internal Medicine Office Vis itocata 07-10-2024 Internal Medicine Office Visit [facility] [address] [place] [address] [place] [address] OFFICE VISIT Date of Service: 07/10/24 MR#: [id number] Acct: [id number] Name: YARED PEPEHUBERTRoger CORTES Rep #: [id number] : 1960 Provider: MARIANA Iniguez Age/Sex: 64/M Location: [facility] Status: Signed Intake Vital Signs 03/07/24 08:05 07/10/24 14:46 Height 5 ft 8 in 5 ft 8 in Weight: 227 lb BMI 34.4 BP 128/82 H Blood Pressure Location Lt brachial Position Sitting Respiration 17 Pulse 71 Pulse Source Monitor Temp 97.3 F L Temp Source Temporal Pulse Oximetry (%) 95 Oxygen Delivery Method room air Intake Visit Reasons: BILAT ARM PAIN/WEAKNESS HIP PAIN Chief Complaint: BILAT ARM PAIN/WEAKNESS HIP PAIN Is patient in pain?: Yes (1 in bilat arms and upper thighs bilat- pain is 6 during episodes) Allergies Penicillins Allergy (Unknown, Verified 07/10/24 14:47) unknown Medications ???Medication ???Instructions ???Recorded ???Confirmed ???Type aspirin 81 mg capsule 81 mg PO DAILY 05/16/21 07/10/24 History multivitamin 1 tab PO DAILY 05/16/21 07/10/24 History fexofenadine 60 mg tablet (Rosalinda 60 mg PO DAILY 09/05/22 07/10/24 History Allergy) atenolol 50 mg tablet 50 mg PO DAILY #90 tabs 08/20/23 07/10/24 Rx lisinopril 20 1 tab PO DAILY #90 tabs 12/26/23 07/10/24 Rx mg-hydrochlorothiazide 12.5 mg tablet rosuvastatin 20 mg tablet 20 mg PO DAILY #90 tabs 04/08/24 07/10/24 Rx Have you fallen in the past year?: No Nurse's Note: pt reports that in May pt had a steroid injection in his right knee pt states that towards the end of may started to have bilateral arm and thigh pain. states it is a 6 on 0-10 scale at its worst when it would occur. pt states that it is an aching sensation. noted and improvement in the past week however is concerned for lyme disease even though he does not recall being bitten by a tick [facility] Medical History Borderline type 2 diabetes mellitus Alcohol use Non-smoker History of stress test History of deviated nasal septum Encounter for preventative adult health care examination Obesity (BMI 30-39.9) Need for shingles vaccine Bilateral foot pain Health care maintenance Hyperlipemia Hypertension Gout Surgical History Hx of knee surgery History of colonoscopy Family History Father Heart disease Daughter No problems noted. Mother Breast cancer Grandmother Colon cancer Grandfather Heart disease Social History adopted: No household members: spouse current occupational status: employed current occupation: [employer] pets and animals: No Smoking Status: Never smoker alcohol intake: current alcohol intake frequency: holidays/special occasions only substance use type: does not use caffeine: Yes (3-4) Type: carbonated beverages what type of physical activity do you participate in: none seatbelt use: always do you feel safe at home: Yes HPI HPI Chief Complaint: BILAT ARM PAIN/WEAKNESS HIP PAIN Details: YARED PEPE (ROB), is a 64 M who presents to the office today for some generalized muscle pains. He states that he has had pains in the arms and in the muscles of the legs (front of the thighs). He states he was not having pains in the actual joints such as the shoulder or the elbows or in the hips or the knees but again this was more the muscles. He never noticed any redness, rashes, or other skin changes. He states that he noticed the pains for the past few weeks. He would notice the pains more with activity (no specific movements) but also at rest. He states that he would have enough achiness that it made it difficult some nights to sleep. Now today he states he feels kind of silly coming in today in that the pains currently are not there. He states that he has had resolution since Sunday and not because he is been resting or doing anything different and that he was actually pretty active Sunday (Sunday he was very active cutting up an old swingset.) Now he is currently taking Ibuprofen. He states that he did have some mild cold symptoms over Hallow but didn't think that they were that bad. He states that the muscle pains started probably a week or two after that. Patient also in the summer had pretty random occurrence of knee effusion that required aspiration twice with a steroid injection. They did send the aspirate for evaluation showing no signs of gout crystals or other abnormalities. Patient has not had any swelling of any other joints that he could tell and again has not complained of any pains in the actual joints. No history of previous m (more content not included)... Normal [facility] Rheumatoid Factoron 07-10-20 RHEUMATOID FAC < 10.0 Normal <15 [facility] Comment on above: Performed By: #### L 4600.0100, L3100.5450, L505.7010, L101.9900, L501.6710, L7000.5300 ####[facility] [id number] [place], [place], [id number] Orthopedic Visit Reporton Orthopedic Visit Report [facility] [address] [place] [address] [address] [place] [address] OFFICE VISIT Date of Service: 04/30/24 MR#: [id number] Acct: [id number] Name: AFSHINVAIL (ROB) SEBASTIAN Rep #: [id number] : 1960 Provider: Dr. Toi Sands so, DO Age/Sex: 64/M Location: [facility] Status: Signed Intake Vital Signs 03/07/24 08:05 Height 5 ft 8 in Intake Visit Reasons: RIGHT KNEE Is patient in pain?: Yes Allergies Penicillins Allergy (Unknown, Verified 04/30/24 13:56) unknown Medications ???Medication ???Instructions ???Recorded ???Confirmed ???Type aspirin 81 mg capsule 81 mg PO DAILY 05/16/21 04/30/24 History multivitamin 1 tab PO DAILY 05/16/21 04/30/24 History fexofenadine 60 mg tablet (Rosalinda 60 mg PO DAILY 09/05/22 04/30/24 History Allergy) atenolol 50 mg tablet 50 mg PO DAILY #90 tabs 08/20/23 04/30/24 Rx lisinopril 20 1 tab PO DAILY #90 tabs 12/26/23 04/30/24 Rx mg-hydrochlorothiazide 12.5 mg tablet rosuvastatin 20 mg tablet 20 mg PO DAILY #90 tabs 04/08/24 04/30/24 Rx PFSH Medical History Borderline type 2 diabetes mellitus Alcohol use Non-smoker History of stress test History of deviated nasal septum Encounter for preventative adult health care examination Obesity (BMI 30-39.9) Need for shingles vaccine Bilateral foot pain Health care maintenance Hyperlipemia Hypertension Gout Surgical History Hx of knee surgery History of colonoscopy Family History Father Heart disease Daughter No problems noted. Mother Breast cancer Grandmother Colon cancer Grandfather Heart disease Social History adopted: No household members: spouse current occupational status: employed current occupation: [employer] pets and animals: No Smoking Status: Never smoker alcohol intake: current alcohol intake frequency: holidays/special occasions only substance use type: does not use caffeine: Yes (3-4) Type: carbonated beverages what type of physical activity do you participate in: none seatbelt use: always do you feel safe at home: Yes HPI RIGHT KNEE Details: This documentation accurately reflects the service provided and the decisions made by me, Dr. Toi Mcdowell, DO 04/30/24939. Part of today???s visit was documented by Huong Clark, acting as scribe. YARED PEPE (ROB) is a 64 year old M here today for MRI review right knee 04/30/2024: Patient notes that he is here to review his right knee MRI. Patient notes that he continues to have knee pain. He complains of pain over his entire knee. He notes that he has a constant achiness and a sharp pain with a certain movements. He is taking ibuprofen for pain. 04/11/2024: Patient is still having the pain. Patient states the pain comes and goes. Patient is taking Ibuprofen 600mg TID for most days. Patient states his pain depends on what he did the day before. Patient states he hasn't used ice or heat. He states that the injection we gave him last time helped about 80% for 2 weeks and that his pain has returned his fluid is also returned. 03/10/2024: New patient visit right knee pain since December worsening over the past month although admits to pain on and off for years. No injury. Knee arthroscopy 1988 but unsure of procedure. Global knee pain. 1 episode of popping but denies regular mechanical symptoms or instability. No previous injections therapy or bracing x-rays or MRI. Takes ibuprofen as needed. History of gout. Does take allopurinol. We discussed indomethacin and he was given a gout handout. We did perform an aspiration for crystal analysis and no crystals were seen. An intra-articular steroid injection was given at that time. Ortho Exam General General: Yes no acute distress Neurologic: Yes alert and Yes oriented x3 Psychologic: Yes reasonable and appropriate Right Knee Skin/Wound: No erythema, No ecchymosis and Yes swelling 3+: Effusion Knee ROM: Yes ROM-Extension -20 to 0 (-12) and Yes ROM-Flexion 0-140 (80) Examination: No Med jt line tenderness, No Lat jt line tenderness and No Yisel's Test Stability: NML: Anterior Drawer, NML: Posterior Drawer, NML: Valgus 0, NML: Valgus 30, NML: Varus 0 and NML: Varus 30 Apprehension with Lateral Translation: No Patella Grind: No KNEE: small portal scars. Office Procedures Office Injections/Aspirations Procedure Detail Procedure performed by: Toi Mcdowell Injections/Aspirations Details: Obtained consent for aspiration. Under sterile conditions, aspirated 50cc of synovial fluid from the patients right knee. The patient tolerated the aspiration well witho (more content not included)... Normal [facility] Lower Ext Joint Only (Routin e)on 04-21-2024 Lower Ext Joint Only (Routine) [facility] Imaging Services [address] [place] [address] Lower Ext Joint Only (Routine) MR#: [id number] Acct: [id number] Name: YARED PEPE (ROB) Rep #: [id number] : 1960 M 64 From: Davin Hall MD PCP: Dr. Ximena Gagnon MD Status: REG CLI Study: Lower Ext Joint Only (Routine) Date of Exam: 0 04/21/24 Exam# [id number] Ordering Dr: [place] [id number] STUDY: MRI RIGHT KNEE REASON FOR EXAM: Male, 64 years old. Throbbing pain for 3 months. TECHNIQUE: Standardized fat and water weighted pulse sequences were obtained in all 3 orthogonal planes. COMPARISON: Right knee radiographs dated 03/10/2024. FINDINGS: Normal medial meniscus. Normal hyaline cartilage of the medial femorotibial compartment. Normal medial femoral condyle and tibial plateau. There is a mild grade I MCL sprain with periligamentous edema (coronal T2 series 7001 image 21). Intact distal semimembranosus, gracilis and semitendinosus tendons. There is mild semimembranosus-tibial collateral ligament bursitis. There is a suspected small horizontal tear of the body of the lateral meniscus (coronal PD series 6001 images 21-22). Normal hyaline cartilage of the lateral femorotibial compartment. Normal lateral femoral condyle and tibial plateau. Normal proximal tibiofibular articulation. Normal lateral collateral (fibular) ligament. Normal popliteus tendon. Normal biceps femoris tendon. Normal anterior cruciate ligament (ACL). Normal posterior cruciate ligament (PCL). There is moderate grade chondromalacia along the medial patellar facet (axial T2 series 3001 images 27-28). There is slight lateral patellar subluxation. Normal medial and lateral patellar retinaculum. Normal quadriceps tendon. Normal patellar tendon. Normal Hoffa''s fat pad. There is a moderate to large joint effusion. There is a tiny popliteal cyst. There is mild subcutaneous soft tissue edema around the knee. There is no acute fracture. MRI/Lower Ext Joint Only (Routine) IMPRESSION: Suspected small horizontal tear of the body of the lateral meniscus. Mild grade I MCL sprain. Mild semimembranosus-tibial collateral ligament bursitis. 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 Moderate to large joint effusion, with a tiny popliteal cyst. Mild subcutaneous soft tissue edema around the knee. Electronically Signed: Davin Hall MD at 11:10 EDT Reading Location ID and State: [address] [place] [address] , Service support , CC: Dr. Ximena Gagnon MD; Dr. Toi Mcdowell DO Vocational Services Specialist: Signed Normal [facility] Orthopedic Visit Reporton Orthopedic Visit Report [facility] [address] [place] [address] OFFICE VISIT Date of Service: 04/11/24 MR#: [id number] Acct: [id number] Name: AFSHINHUBERTYARED SEBASTIAN Rep #: [id number] : 1960 Provider: Dr. Toi puentes DO Age/Sex: 64/M Location: [facility] Status: Signed Intake Vital Signs 03/07/24 08:05 Height 5 ft 8 in Intake Visit Reasons: RIGHT KNEE Accompanied by: Is patient in pain?: Yes Pain scale (1-10): 8 Allergies Penicillins Allergy (Unknown, Verified 04/11/24 08:13) unknown Medications ???Medication ???Instructions ???Recorded ???Confirmed ???Type aspirin 81 mg capsule 81 mg PO DAILY 05/16/21 04/11/24 History multivitamin 1 tab PO DAILY 05/16/21 04/11/24 History fexofenadine 60 mg tablet (Rosalinda 60 mg PO DAILY 09/05/22 04/11/24 History Allergy) atenolol 50 mg tablet 50 mg PO DAILY #90 tabs 08/20/23 04/11/24 Rx lisinopril 20 1 tab PO DAILY #90 tabs 12/26/23 04/11/24 Rx mg-hydrochlorothiazide 12.5 mg tablet rosuvastatin 20 mg tablet 20 mg PO DAILY #90 tabs 04/08/24 04/11/24 Rx PFSH Medical History Borderline type 2 diabetes mellitus Alcohol use Non-smoker History of stress test History of deviated nasal septum Encounter for preventative adult health care examination Obesity (BMI 30-39.9) Need for shingles vaccine Bilateral foot pain Health care maintenance Hyperlipemia Hypertension Gout Surgical History Hx of knee surgery History of colonoscopy Family History Father Heart disease Daughter No problems noted. Mother Breast cancer Grandmother Colon cancer Grandfather Heart disease Social History adopted: No household members: spouse current occupational status: employed current occupation: [employer] pets and animals: No Smoking Status: Never smoker alcohol intake: current alcohol intake frequency: holidays/special occasions only substance use type: does not use caffeine: Yes (3-4) Type: carbonated beverages what type of physical activity do you participate in: none seatbelt use: always do you feel safe at home: Yes HPI RIGHT KNEE Details: This documentation accurately reflects the service provided and the decisions made by me, Dr. Toi Mcdowell, DO 04/11/24 0742. Part of today???s visit was documented by [ ], acting as scribe. YARED PEPE (ROB) is a 64 year old M here today for Right knee pain. 04/11/2024: Patient is still having the pain. Patient states the pain comes and goes. Patient is taking Ibuprofen 600mg TID for most days. Patient states his pain depends on what he did the day before. Patient states he hasn't used ice or heat. He states that the injection we gave him last time helped about 80% for 2 weeks and that his pain has returned his fluid is also returned. To recall from last office visit 03/10/2024: New patient visit right knee pain since May worsening over the past month although admits to pain on and off for years. No injury. Knee arthroscopy 1988 but unsure of procedure. Global knee pain. 1 episode of popping but denies regular mechanical symptoms or instability. No previous injections therapy or bracing x-rays or MRI. Takes ibuprofen as needed. History of gout. Does take allopurinol. We discussed indomethacin and he was given a gout handout. We did perform an aspiration for crystal analysis and no crystals were seen. An intra-articular steroid injection was given at that time. Ortho Exam General General: Yes no acute distress Neurologic: Yes alert and Yes oriented x3 Psychologic: Yes reasonable and appropriate Right Knee Skin/Wound: No erythema, No ecchymosis and Yes swelling 3+: Effusion Knee ROM: Yes ROM-Extension -20 to 0 (-12) and Yes ROM-Flexion 0-140 (80) Examination: No Med jt line tenderness, No Lat jt line tenderness and No Yisel's Test Stability: NML: Anterior Drawer, NML: Posterior Drawer, NML: Valgus 0, NML: Valgus 30, NML: Varus 0 and NML: Varus 30 Apprehension with Lateral Translation: No Patella Grind: No KNEE: small portal scars. Supplemental Info 03/10/2024 x-ray right knee: There is a mild lateral patellar tilt faint spurring of the patella very early narrowing of the medial compartment overall joint space is fairly well-maintained Coding Level of Care Code Off vis,est,level 3 Diagnoses Primary osteoarthritis of right knee M17.11 Osteoarthritis type: primary Effusion of right knee M25.461 Laterality: right Assessment and Plan Assessment and Plan (1) Right knee DJD: Status: Acute Qualifiers: Osteoarthriti (more content not included)... Normal [facility] Crystals, Body Fluidon 03-11 PATH REV Reviewed Normal [facility] Comment on above: Result Comment: [facility] [employer] [employer] Yovani North M.D. 03/11/24 AMENDED REPORT 03/11/24 1452 PATH REV previously reported as: Will follow Performed By: #### L 200.4175 ####[facility] [address] [place], [address] Knee 4 or More Viewson 03-10 Knee 4 or More Views [facility] [address] [place] [address] Knee 4 or More Views MR#: [id number] Acct: [id number] Name: YARED PEPE (ROB) Rep #: [id number] : 1960 M 64 From: Ced singh MD PCP: Dr. Ximena Gagnon MD Status: DEP AMB Study: Knee 4 or More Views Date of Exam: 03/10/24 Exam# [id number] Ordering [place]: [place] [id number] INDICATION: pain EXAMINATION/TECHNIQUE: X-RAY - RIGHT XR Knee Complete 4 Views or More COMPARISON: None. FINDINGS: No acute fracture or malalignment. Mild, lateral compartment predominant, tricompartmental joint space narrowing and osteophytosis. Small joint effusion. The soft tissues are unremarkable. RAD/Knee 4 or More Views IMPRESSION: No acute fracture or malalignment. Small joint effusion. Mild, lateral compartment predominant, tricompartmental degenerative arthrosis of the knee. Electronically Signed: Ced Ulloa MD at 17:25 EDT , CC: Dr. Ximena Gagnon MD; Dr. Toi Mcdowell DO Vocational Services Specialist: Signed Normal [facility] Orthopedic Visit Reporton Orthopedic Visit Report [facility] [address] [place] [address] [address] [place] [address] OFFICE VISIT Date of Service: 03/10/24 MR#: [id number] Acct: [id number] Name: YARED PEPE (ROB) Rep #: [id number] : 1960 Provider: Dr. Toi puentes DO Age/Sex: 64/M Location: [facility] Status: Signed Intake Vital Signs 09/06/23 17:49 03/07/24 08:05 Height 5 ft 8 in 5 ft 8 in Weight: 212 lb BMI 32.2 BP 120/80 Blood Pressure Location Lt brachial Position Sitting Respiration 17 Pulse 78 Pulse Source Monitor Temp 97.9 F Temp Source Temporal Pulse Oximetry (%) 98 Oxygen Delivery Method room air Intake Visit Reasons: RIGHT KNEE Accompanied by: Self Is patient in pain?: Yes Allergies Penicillins Allergy (Unknown, Verified 03/10/24 08:23) unknown Medications ???Medication ???Instructions ???Recorded ???Confirmed ???Type aspirin 81 mg capsule 81 mg PO DAILY 05/16/21 03/10/24 History multivitamin 1 tab PO DAILY 05/16/21 03/10/24 History fexofenadine 60 mg tablet (Rosalinda 60 mg PO DAILY 09/05/22 03/10/24 History Allergy) atenolol 50 mg tablet 50 mg PO DAILY #90 tabs 08/20/23 03/10/24 Rx rosuvastatin 20 mg tablet 20 mg PO DAILY #60 tabs 12/11/23 03/10/24 Rx lisinopril 20 1 tab PO DAILY #90 tabs 12/26/23 03/10/24 Rx mg-hydrochlorothiazide 12.5 mg tablet PFSH Medical History Borderline type 2 diabetes mellitus Alcohol use Non-smoker History of stress test History of deviated nasal septum Encounter for preventative adult health care examination Obesity (BMI 30-39.9) Need for shingles vaccine Bilateral foot pain Health care maintenance Hyperlipemia Hypertension Gout Surgical History Hx of knee surgery History of colonoscopy Family History Father Heart disease Daughter No problems noted. Mother Breast cancer Grandmother Colon cancer Grandfather Heart disease Social History adopted: No household members: spouse current occupational status: employed current occupation: [employer] pets and animals: No Smoking Status: Never smoker alcohol intake: current alcohol intake frequency: holidays/special occasions only substance use type: does not use caffeine: Yes (3-4) Type: carbonated beverages what type of physical activity do you participate in: none seatbelt use: always do you feel safe at home: Yes HPI RIGHT KNEE Details: This documentation accurately reflects the service provided and the decisions made by me, Dr. Toi Mcdowell, DO 03/10/24 0815. Part of today???s visit was documented by Huong Clark, acting as scribe. YARED PEPE is a 64 year old M here today for right knee pain. Patient is a new patient. Patient notes that he has had right knee pain since December with it worsening over the last month. Although he notes that he has had pain off and on for years. Patient denies any known injury. He had a knee scope in 1988 but is unsure what knee he had the surgery on. Patient complains of pain over his entire knee. Patient had one episode of popping but denies any regular popping/clicking. Patient denies any instability. He denies any injections, physical therapy or bracing. He denies any xrays or MRI. He takes ibuprofen for pain as needed. He has a history of gout in his feet with the last episode being a year and a half ago. Ortho Exam General General: Yes no acute distress Neurologic: Yes alert and Yes oriented x3 Psychologic: Yes reasonable and appropriate Right Knee Skin/Wound: Yes CDI, No erythema, No ecchymosis and Yes swelling 3+: Effusion Knee ROM: Yes ROM-Extension -20 to 0 (-12) and Yes ROM-Flexion 0-140 (80) Examination: No Med jt line tenderness, No Lat jt line tenderness and No Yisel's Test Stability: NML: Anterior Drawer, NML: Posterior Drawer, NML: Valgus 0, NML: Valgus 30, NML: Varus 0 and NML: Varus 30 Apprehension with Lateral Translation: No Patella Grind: No KNEE: small portal scars. Office Procedures Office Injections/Aspirations Procedure Detail Procedure performed by: Toi Mcdowell Ortho Injections/Aspirations Yes Knee Details: Obtained consent for aspiration. Under sterile conditions, aspirated 50cc of synovial fluid from the patients right knee. The patient tolerated the aspiration well without any noted complications. Patient should call our office if redness develops, pain worsens or if they have any concerns. Ortho Injections Injections Yes Knee Right Is this a patient provided medication?: No Details: Obtained consent for injection. Under sterile c (more content not included)... Normal [facility] Basic Metabolic Profile (BMP )on 03-07-2024 BUN/CRE 14.5 RATIO Normal 10-20 [facility] Comment on above: Performed By: #### L 501.9985, L500.2500 ####[facility] [address] [place], [address] CA,Total 9.9 mg/dL Normal 8.5-10.1 [facility] Comment on above: Performed By: #### L [id number], L500.2500 ####[facility] [address] [place], [address] Chloride [Moles/Vol] 104 mmol/L Normal 98-107 [facility] Comment on above: Performed By: #### L [id number], L500.2500 ####[facility] [address] [place], [address] CO2 [Moles/Vol] 28.0 mmol/L Normal 21.0-32.0 [facility] Comment on above: Performed By: #### L [id number], L500.2500 ####[facility] [address] [place], [address] Creatinine [Mass/Vol] 1.17 mg/dL Normal 0.70-1.30 [facility] Comment on above: Result Comment: The validity of the calculated GFR GFRAA in patients over 70 years has not been determined. Clinical correlation is essential. Performed By: #### L [id number], L500.2500 ####[facility] [address] [place], [address] EST GFR - AA 81 mL/min Normal >60 [facility] Comment on above: Result Comment: Afri can Swedish GFR Calc Performed By: #### L [id number], L500.2500 ####[facility] [address] [place], [address] GAP 5 Normal 5-15 [facility] Comment on above: Performed By: #### L [id number], L500.2500 ####[facility] [address] [place], [address] GFR/1.73 sq M.predicted among non-blacks MDRD (S/P/Bld) [Vol rate/Area] 67 mL/min/{1.73_m2} Normal >60 [facility] Comment on above: Result Comment: Non- GFR Calc Performed By: #### L [id number], L500.2500 ####[facility] [address] [place], [address] Glucose [Mass/Vol] 111 mg/dL High 74-106 [facility] Comment on above: Result Comment: Fast ing Glucose result from 100 to 125 mg/dL suggests IMPAIRED HOMEOSTASIS per A.D.A. criteria. Performed By: #### L [id number], L500.2500 ####[facility] [address] [place], [address] Potassium [Moles/Vol] 5.1 mmol/L Normal 3.5-5.1 [facility] Comment on above: Performed By: #### L [id number], L500.2500 ####[facility] [address] [place], [address] Sodium [Moles/Vol] 137 mmol/L Normal 136-145 [facility] Comment on above: Performed By: #### L [id number], L500.2500 ####[facility] [address] [place], [address] Urea nitrogen [Mass/Vol] 17 mg/dL Normal 7-18 [facility] Comment on above: Performed By: #### L [id number], L500.2500 ####[facility] [address] [place], [address] Hemoglobin A1con 03-07-2024 HbA1c (Bld) [Mass fraction] 6.0 % High 3.8-5.6 [facility] Comment on above: Result Comment: Norm al < 5.7 % Prediabetic 5.7 - 6.4 % Diabetic >or= 6.5 % Please note range changes. Performed By: #### L [id number], L500.2500 ####[facility] [address] [place], [address] Internal Medicine Office Vis iton 03-07-2024 Internal Medicine Office Visit [facility] [place] [address] [place] [address] OFFICE VISIT Date of Service: 03/07/24 MR#: [id number] Acct: [id number] Name: YARED PEPE Rep #: [id number] : 1960 Provider: Dr. Ximena fisher MD Age/Sex: 64/M Location: [facility] Status: Signed Intake Vital Signs 09/06/23 17:49 03/07/24 08:05 Height 5 ft 8 in 5 ft 8 in Weight: 212 lb BMI 32.2 BP 120/80 Blood Pressure Location Lt brachial Position Sitting Respiration 17 Pulse 78 Pulse Source Monitor Temp 97.9 F Temp Source Temporal Pulse Oximetry (%) 98 Oxygen Delivery Method room air Intake Visit Reasons: 6 M FU Chief Complaint: 6 M FU Is patient in pain?: Yes (5 right knee ) Allergies Penicillins Allergy (Unknown, Verified 03/07/24 08:05) unknown Medications ???Medication ???Instructions ???Recorded ???Confirmed ???Type aspirin 81 mg capsule 81 mg PO DAILY 05/16/21 03/07/24 History multivitamin 1 tab PO DAILY 05/16/21 03/07/24 History fexofenadine 60 mg tablet (Rosalinda 60 mg PO DAILY 09/05/22 03/07/24 History Allergy) atenolol 50 mg tablet 50 mg PO DAILY #90 tabs 08/20/23 03/07/24 Rx rosuvastatin 20 mg tablet 20 mg PO DAILY #60 tabs 12/11/23 03/07/24 Rx lisinopril 20 1 tab PO DAILY #90 tabs 12/26/23 03/07/24 Rx mg-hydrochlorothiazide 12.5 mg tablet [facility] Medical History Borderline type 2 diabetes mellitus Alcohol use Non-smoker History of stress test History of deviated nasal septum Encounter for preventative adult health care examination Obesity (BMI 30-39.9) Need for shingles vaccine Bilateral foot pain Health care maintenance Hyperlipemia Hypertension Gout Surgical History Hx of knee surgery History of colonoscopy Family History Father Heart disease Daughter No problems noted. Mother Breast cancer Grandmother Colon cancer Grandfather Heart disease Social History adopted: No household members: spouse current occupational status: employed current occupation: [employer] pets and animals: No Smoking Status: Never smoker alcohol intake: current alcohol intake frequency: holidays/special occasions only substance use type: does not use caffeine: Yes (3-4) Type: carbonated beverages what type of physical activity do you participate in: none seatbelt use: always do you feel safe at home: Yes HPI HPI Chief Complaint: 6 M FU Details: YARED PEPE, is a 64 M who presents to the office today for follow-up of his chronic medical conditions. No acute concerns at this time. Since his last visit, has lost 12 pounds. He states that he made dietary changes cutting down sweets and bread. He feels well. Blood pressure today is at 120/80 mmHg. Currently on lisinopril hydrochlorothiazide and atenolol. Stays active. No chest pain, palpitation or shortness of breath. Other chronic medical conditions are stable. Was started on rosuvastatin for hyperlipidemia. No muscle pain or weakness and recent lipid profile with significant improvement in his numbers. ROS Const Constitutional: No body ache, chills, excessive sweating, fatigue, fever(s), frequent falls, headache(s), snoring, weight change, sleep problems, abnormal sleep pattern or change in appetite Eyes Eyes: No blurry vision, change in vision, visual disturbances, eye pain or Light sensitivity ENT ENT: No abnormal hearing, ear or mastoid pain, tinnitus, balance problems, nasal congestion, headache(s), neck pain or sore throat Resp Respiratory: No cough, shortness of breath, snoring or wheezing Cardio Cardiology: No chest pain at rest, chest pain with exertion, excessive sweating, shortness of breath, dyspnea on exertion, lightheadedness, orthopnea or palpitations Gastro GI: No abdominal pain, change in bowel habits, constipation, cramping, diarrhea, nausea/dyspepsia or vomiting Genitourinary Male: No burning urination, painful urination, urinary incontinence or urinary frequency Musc Musculoskeletal: No abnormal gait, joint pain, back pain, limited range of motion, neck pain, numbness or tingling Skin Skin: No dry skin, redness, lesions, itchy eyes, rash or wounds Neuro Neurology: No abnormal gait, abnormal hearing, frequent falls, headache(s), memory loss, numbness, tingling or visual disturbances Psych Psychiatric: No abnormal sleep pattern, No anxiety, No change in appetite, No irritability, No memory loss and No Thoughts of harming yourself/Others Endo Endocrine: No cold intolerance, excessive sweating, fatigue, flushing, heat intolerance, increased thirst/drinking, (more content not included)... Normal [facility] Basophil percentageOrdered B y: Ximena Gagnon on 10-17-2023 Bilirubin [Mass/Vol] 0.40 mg/dL 0.20-1.00 [facility] Comment on above: For patients on eltr ombopag therapy, use of Dimension [place] TBIL is not recommended. Chloride [Moles/Vol] 104 mmol/L 98-107 [facility] Glucose [Mass/Vol] 107 mg/dL 74-106 [facility] Comment on above: Fasting Glucose resu lt from 100 to 125 mg/dL suggests IMPAIRED HOMEOSTASIS per A.D.A. criteria. Potassium [Moles/Vol] 4.4 mmol/L 3.5-5.1 [facility] Comment on above: Moderate Hemolysis, Result may be falsely increased. Protein [Mass/Vol] 7.2 g/dL 6.4-8.2 [facility] Sodium [Moles/Vol] 137 mmol/L 136-145 [facility] Laboratory - Chemistry and C hemistry - challengeOrdered By: Ximena Gagnon on 10-17-2023 Albumin/Globulin [Mass ratio] 1.1 {ratio} 0.9-2.4 [facility] ALP [Catalytic activity/Vol] 52 U/L 45-117 [facility] ALT [Catalytic activity/Vol] 30 U/L 16-61 [facility] CO2 [Moles/Vol] 27.0 mmol/L 21.0-32.0 [facility] Globulin (S) [Mass/Vol] 3.5 g/dL 2.2-4.2 [facility] Urea nitrogen/Creatinine [Mass ratio] 12.1 mg/mg 10-20 [facility] No Panel InformationOrdered By: Ximena Gagnon on 10-17-2023 Estimated GFR (MDRD) Amer 82 mL/min >60 [facility] Comment on above: GFR Calc Estimated GFR (MDRD) Non-Af Amer 68 mL/min >60 [facility] Comment on above: Non- GFR Calc Serum or plasma calcium mary urement (mass/volume)Ordered By: Ximena Gagnon on 10-17-2023 Calcium [Mass/Vol] 9.0 mg/dL 8.5-10.1 [facility] Serum or plasma creatinine m easurement (mass/volume)Ordered By: Ximena Gagnon on 10-17-2023 Creatinine [Mass/Vol] 1.16 mg/dL 0.70-1.30 [facility] Comment on above: The validity of the calculated GFR & GFRAA in patients over 70 years has not been determined. Clinical correlation is essential. Serum or plasma urea nitroge n measurement (mass/volume)Ordered By: Ximena Gagnon on 10-17-2023 Urea nitrogen [Mass/Vol] 14 mg/dL 7-18 [facility] Thin prep Papanicolaou smear with manual screeningOrdered By: Ximena Gagnon on 10-17-2023 Thin prep Papanicolaou smear with manual screening 3.7 g/dL 3.2-5.0 [facility] Thin prep Papanicolaou smear with manual screening 33 U/L 15-37 [facility] Comment on above: Moderate Hemolysis, Result may be falsely increased. Thin prep Papanicolaou smear with manual screening 6 5-15 [facility] Absolute lymphocyte countOrd ered By: Ximena Gagnon on 09-08-2023 Lymphocytes Auto (Unsp spec) [#/Vol] 3.46 10*3/uL 0.83-4.51 [facility] Automated lymphocyte count a s percentage of total leukocytesOrdered By: Ximena Gagnon on 09-08-2023 Lymphocytes/100 WBC Auto (Unsp spec) 30.7 % 19-41 [facility] Basophil percentageOrdered B y: Ximena Gagnon on 09-08-2023 Basophils/100 WBC (Bld) 1.1 % 0-1 [facility] Bilirubin [Mass/Vol] 0.30 mg/dL 0.20-1.00 [facility] Comment on above: For patients on eltr ombopag therapy, use of Dim[place] TBIL is not recommended. Chloride [Moles/Vol] 106 mmol/L 98-107 [facility] Cholesterol [Mass/Vol] 277 mg/dL <200 [facility] Comment on above: <200 mg/dL Desirable 200-240 mg/dL Borderline >240 mg/dL High Risk Eosinophils/100 WBC (Bld) 5.5 % 0-5 [facility] Glucose [Mass/Vol] 119 mg/dL 74-106 [facility] Comment on above: Fasting Glucose resu lt from 100 to 125 mg/dL suggests IMPAIRED HOMEOSTASIS per A.D.A. criteria. Hemoglobin (Bld) [Mass/Vol] 13.3 g/dL 13.0-16.5 [facility] Monocytes/100 WBC (Bld) 9.1 % 0-10 [facility] Neutrophils (Bld) [#/Vol] 6.0 10*3/uL 2.0-7.7 [facility] Neutrophils/100 WBC (Bld) 53.2 % 47-70 [facility] Potassium [Moles/Vol] 4.4 mmol/L 3.5-5.1 [facility] Protein [Mass/Vol] 7.4 g/dL 6.4-8.2 [facility] Sodium [Moles/Vol] 137 mmol/L 136-145 [facility] Triglyceride [Mass/Vol] 95 mg/dL <199 [facility] Comment on above: The drugs N-Acetylcy steine and Metamizole may falsely depress this assay.Serum Triglycerides Reference Interval Normal <150 mg/dL Borderline high 150 - 199 mg/dL High 200 - 499 mg/dL Very High > or = 500 mg/dL WBC (Bld) [#/Vol] 11.3 10*3/uL 4.4-11.0 [facility] Determination of erythrocyte mean corpuscular volume (MCV)Ordered By: Ximena Gagnon on 09-08-2023 MCV (RBC) [Entitic vol] 88.4 fL 80-94 [facility] Erythrocyte distribution wid th ratioOrdered By: [facility] Giovannymaynor on 09-08-2023 Erythrocyte distribution width (RBC) [Ratio] 13.2 % 11.6-14.6 [facility] Erythrocyte distribution wid th standard deviationOrdered By: [facility] on 09-08-2023 Erythrocyte distribution width (RBC) [Entitic vol] 42.6 fL 35.1-43.9 [facility] Hematocrit Auto (Bld) [Volum e fraction]Ordered By: josedimondalejosephine Gagnon on 09-08-2023 Hematocrit (Bld) [Volume fraction] 41.8 % 40-54 [facility] Immature granulocytes/100 WB C Auto (Bld)Ordered By: [facility] Center[facility] Baltazarmaynor on 09-08-2023 Immature granulocytes/100 WBC (Bld) 0.400 % 0.0-0.9 [facility] Comment on above: IG% - Immature Granu locytes (promyelocytes, myelocytes and metamyelocytes) > 1% indicates that a LEFT SHIFT is Present. Laboratory - Chemistry and C hemistry - challengeOrdered By: Ximena Gagnon on 09-08-2023 Albumin/Globulin [Mass ratio] 1.1 {ratio} 0.9-2.4 [facility] ALP [Catalytic activity/Vol] 64 U/L 45-117 [facility] ALT [Catalytic activity/Vol] 26 U/L 16-61 [facility] Cholesterol in HDL (Body fld) [Mass/Vol] 58 mg/dL >40 [facility] Comment on above: The drugs N-Acetylcy steine and Metamizole may falsely depress this assay. Reference Range HDL <40 mg/dL Low HDL Cholesterol HDL >or= 60 mg/dL High HDL Cholesterol Cholesterol in LDL (Body fld) [Moles/Vol] 200 mg/dL 0-130 [facility] Cholesterol in VLDL Calc [Moles/Vol] 19 mg/dL 5-40 [facility] CO2 [Moles/Vol] 27.0 mmol/L 21.0-32.0 [facility] Globulin (S) [Mass/Vol] 3.6 g/dL 2.2-4.2 [facility] Prostate specific Ag IA [Mass/Vol] 0.83 ng/mL 0.00-4.00 [facility] Comment on above: This test was perfor med using the TPSA assay method for the[employer] chemistry system. Values obtained with differentassay methods cannot be used interchangably.When changing PSA assays in the course of monitoring apatient, additional sequential testing should be carriedout to confirm baseline values. Urea nitrogen/Creatinine [Mass ratio] 12.8 mg/mg 10-20 [facility] Laboratory - Hematology and Cell countsOrdered By: Ximena Gagnon on 09-08-2023 MCH (RBC) [Entitic mass] 28.1 pg 27.0-32.0 [facility] MCHC (RBC) [Mass/Vol] 31.8 g/dL 32-36 [facility] Nucleated RBC/100 WBC (Bld) [Ratio] 0 % 0-5 [facility] Platelets (Bld) [#/Vol] 337 10*3/uL 150-450 [facility] No Panel InformationOrdered By: Ximena Gagnon on 09-08-2023 Estimated GFR (MDRD) Amer 70 mL/min >60 [facility] Comment on above: GFR Calc Estimated GFR (MDRD) Non-Af Amer 58 mL/min >60 [facility] Comment on above: Non- GFR Calc Platelet mean volume Rogelio-Ec ker (Bld) [Entitic vol]Ordered By: Ximena Gagnon on 09-08-2023 Platelet mean volume (Bld) [Entitic vol] 11.5 fL 6.2-12.0 [facility] RBC Auto (Bld) [#/Vol]Ordere d By: Ximena Gagnon on 09-08-2023 RBC (Bld) [#/Vol] 4.73 10*6/uL 4.6-6.2 [facility] Serum or plasma calcium mary urement (mass/volume)Ordered By: Ximena Gagnon on 09-08-2023 Calcium [Mass/Vol] 9.8 mg/dL 8.5-10.1 [facility] Serum or plasma creatinine m easurement (mass/volume)Ordered By: Ximena Gagnon on 09-08-2023 Creatinine [Mass/Vol] 1.33 mg/dL 0.70-1.30 [facility] Comment on above: The validity of the calculated GFR & GFRAA in patients over 70 years has not been determined. Clinical correlation is essential. Serum or plasma urea nitroge n measurement (mass/volume)Ordered By: Ximena Gagnon on 09-08-2023 Urea nitrogen [Mass/Vol] 17 mg/dL 7-18 [facility] Thin prep Papanicolaou smear with manual screeningOrdered By: Ximena Gagnon on 09-08-2023 Thin prep Papanicolaou smear with manual screening 3.8 g/dL 3.2-5.0 [facility] Thin prep Papanicolaou smear with manual screening 17 U/L 15-37 [facility] Thin prep Papanicolaou smear with manual screening 4 5-15 [facility] Whole blood hemoglobin A1c/t otal hemoglobin ratio (mass fraction)Ordered By: Ximena Gagnon on 09-08-2023 HbA1c (Bld) [Mass fraction] 6.0 % 3.8-5.6 [facility] Comment on above: Normal < 5.7 % Predi abetic 5.7 - 6.4 % Diabetic >or= 6.5 % Please note range changes. Basophil percentageOrdered B y: Pillo Anderson on 12-05-2022 Chloride [Moles/Vol] 108 mmol/L 98-107 [facility] Glucose [Mass/Vol] 116 mg/dL 74-106 [facility] Comment on above: Fasting Glucose resu lt from 100 to 125 mg/dL suggests IMPAIRED HOMEOSTASIS per A.D.A. criteria. Potassium [Moles/Vol] 4.7 mmol/L 3.5-5.1 [facility] Sodium [Moles/Vol] 140 mmol/L 136-145 [facility] Laboratory - Chemistry and C hemistry - challengeOrdered By: Pillo Anderson on 12-05-2022 CO2 [Moles/Vol] 27.0 mmol/L 21.0-32.0 [facility] Urea nitrogen/Creatinine [Mass ratio] 11.3 mg/mg 10-20 [facility] No Panel InformationOrdered By: Pillo Anderson on 12-05-2022 Estimated GFR (MDRD) Amer 83 mL/min >60 [facility] Comment on above: GFR Calc Estimated GFR (MDRD) Non-Af Amer 69 mL/min >60 [facility] Comment on above: Non- GFR Calc Serum or plasma calcium mary urement (mass/volume)Ordered By: Pillo Anderson on 12-05-2022 Calcium [Mass/Vol] 9.4 mg/dL 8.5-10.1 [facility] Serum or plasma creatinine m easurement (mass/volume)Ordered By: Pillo Anderson on 12-05-2022 Creatinine [Mass/Vol] 1.15 mg/dL 0.70-1.30 [facility] Comment on above: The validity of the calculated GFR & GFRAA in patients over 70 years has not been determined. Clinical correlation is essential. Serum or plasma urea nitroge n measurement (mass/volume)Ordered By: Pillo Anderson on 12-05-2022 Urea nitrogen [Mass/Vol] 13 mg/dL 7-18 [facility] Thin prep Papanicolaou smear with manual screeningOrdered By: Pillo Anderson on 12-05-2022 Thin prep Papanicolaou smear with manual screening 5 5-15 [facility] Absolute lymphocyte countOrd ered By: Pillo Anderson on 08-29-2022 Lymphocytes Auto (Unsp spec) [#/Vol] 2.87 10*3/uL 0.83-4.51 [facility] Basophil percentageOrdered B y: Pillo Anderson on 08-29-2022 Basophils/100 WBC (Bld) 0.8 % 0-1 [facility] Bilirubin [Mass/Vol] 0.20 mg/dL 0.20-1.00 [facility] Comment on above: For patients on eltr ombopag therapy, use of [place] TBIL is not recommended. Chloride [Moles/Vol] 107 mmol/L 98-107 [facility] Cholesterol [Mass/Vol] 228 mg/dL <200 [facility] Comment on above: <200 mg/dL Desirable 200-240 mg/dL Borderline >240 mg/dL High Risk Eosinophils/100 WBC (Bld) 3.3 % 0-5 [facility] Glucose [Mass/Vol] 111 mg/dL 74-106 [facility] Comment on above: Fasting Glucose resu lt from 100 to 125 mg/dL suggests IMPAIRED HOMEOSTASIS per A.D.A. criteria. Neutrophils (Bld) [#/Vol] 6.3 10*3/uL 2.0-7.7 [facility] Neutrophils/100 WBC (Bld) 59.0 % 47-70 [facility] Potassium [Moles/Vol] 4.8 mmol/L 3.5-5.1 [facility] Protein [Mass/Vol] 7.3 g/dL 6.4-8.2 [facility] Sodium [Moles/Vol] 140 mmol/L 136-145 [facility] Triglyceride [Mass/Vol] 109 mg/dL <199 [facility] Comment on above: The drugs N-Acetylcy steine and Metamizole may falsely depress this assay.Serum Triglycerides Reference Interval Normal <150 mg/dL Borderline high 150 - 199 mg/dL High 200 - 499 mg/dL Very High > or = 500 mg/dL WBC (Bld) [#/Vol] 10.7 10*3/uL 4.4-11.0 [facility] Blood erythrocytes count (nu mber/volume)Ordered By: Pillo Anderson on 08-29-2022 RBC (Bld) [#/Vol] 4.75 10*6/uL 4.6-6.2 [facility] Blood hemoglobin measurement (mass/volume)Ordered By: Pillo Anderson on 08-29-2022 Hemoglobin (Bld) [Mass/Vol] 13.7 g/dL 13.0-16.5 [facility] Blood lymphocytes/100 leukoc ytesOrdered By: Pillo Anderson on 08-29-2022 Lymphocytes/100 WBC (Bld) 26.9 % 19-41 [facility] Blood monocytes/100 leukocyt esOrdered By: Pillo Anderson on 08-29-2022 Monocytes/100 WBC (Bld) 9.7 % 0-10 [facility] Blood platelet mean volumeOr dered By: Pillo Anderson on 08-29-2022 Platelet mean volume (Bld) [Entitic vol] 11.8 fL 6.2-12.0 [facility] Determination of erythrocyte mean corpuscular volume (MCV)Ordered By: Pillo Anderson on 08-29-2022 MCV (RBC) [Entitic vol] 89.1 fL 80-94 [facility] Hematocrit Auto (Bld) [Volum e fraction]Ordered By: Pillo Anderson on 08-29-2022 Hematocrit (Bld) [Volume fraction] 42.3 % 40-54 [facility] Laboratory - Chemistry and C hemistry - challengeOrdered By: Pillo Anderson on 08-29-2022 ALP [Catalytic activity/Vol] 70 U/L 45-117 [facility] ALT [Catalytic activity/Vol] 33 U/L 16-61 [facility] CO2 [Moles/Vol] 25.0 mmol/L 21.0-32.0 [facility] Globulin (S) [Mass/Vol] 3.6 g/dL 2.2-4.2 [facility] Urea nitrogen/Creatinine [Mass ratio] 16.8 mg/mg 10-20 [facility] Laboratory - Hematology and Cell countsOrdered By: Pillo Anderson on 08-29-2022 Erythrocyte distribution width (RBC) [Entitic vol] 45.2 fL 35.1-43.9 [facility] Erythrocyte distribution width (RBC) [Ratio] 13.9 % 11.6-14.6 [facility] Immature granulocytes/100 WBC (Bld) 0.300 % 0.0-0.9 [facility] Comment on above: IG% - Immature Granu locytes (promyelocytes, myelocytes and metamyelocytes) > 1% indicates that a LEFT SHIFT is Present. MCH (RBC) [Entitic mass] 28.8 pg 27.0-32.0 [facility] Nucleated RBC/100 WBC (Bld) [Ratio] 0 % 0-5 [facility] MCHC Auto (RBC) [Mass/Vol]Or dered By: Pillo Anderson on 08-29-2022 MCHC (RBC) [Mass/Vol] 32.4 g/dL 32-36 [facility] No Panel InformationOrdered By: Pillo Anderson on 08-29-2022 Estimated GFR (MDRD) Amer 91 mL/min >60 [facility] Comment on above: GFR Calc Estimated GFR (MDRD) Non-Af Amer 75 mL/min >60 [facility] Comment on above: Non- GFR Calc Prostate Specific Antigen Screen 1.07 ng/mL 0.00-4.00 [facility] Comment on above: This test was perfor med using the TPSA assay method for the[employer] chemistry system. Values obtained with differentassay methods cannot be used interchangably.When changing PSA assays in the course of monitoring apatient, additional sequential testing should be carriedout to confirm baseline values. Thyroid Stimulating Hormone (TSH) 1.09 uIU/mL 0.358-3.74 [facility] Platelets bldOrdered By: Xiomara Anderson on 08-29-2022 Platelets (Bld) [#/Vol] 302 10*3/uL 150-450 [facility] Serum or plasma albumin mary urement (mass/volume)Ordered By: Pillo Anderson on 08-29-2022 Albumin [Mass/Vol] 3.7 g/dL 3.2-5.0 [facility] Serum or plasma albumin/glob ulin mass ratioOrdered By: Pillo Anderson on 08-29-2022 Albumin/Globulin [Mass ratio] 1.0 {ratio} 0.9-2.4 [facility] Serum or plasma calcium mary urement (mass/volume)Ordered By: Pillo Anderson on 08-29-2022 Calcium [Mass/Vol] 9.1 mg/dL 8.5-10.1 [facility] Serum or plasma cholesterol in HDL measurement (mass/volume)Ordered By: Pillo Anderson on 08-29-2022 Cholesterol in HDL [Mass/Vol] 59 mg/dL >40 [facility] Comment on above: The drugs N-Acetylcy steine and Metamizole may falsely depress this assay. Reference Range HDL <40 mg/dL Low HDL Cholesterol HDL >or= 60 mg/dL High HDL Cholesterol Serum or plasma cholesterol in VLDL measurement (mass/volume)Ordered By: Pillo Anderson on 08-29-2022 Cholesterol in VLDL [Mass/Vol] 22 mg/dL 5-40 [facility] Serum or plasma creatinine m easurement (mass/volume)Ordered By: Pillo Anderson on 08-29-2022 Creatinine [Mass/Vol] 1.07 mg/dL 0.70-1.30 [facility] Comment on above: The validity of the calculated GFR & GFRAA in patients over 70 years has not been determined. Clinical correlation is essential. Serum or plasma low density lipoprotein (LDL) cholesterol measurement (mass/volume)Ordered By: Pillo Anderson on 08-29-2022 Cholesterol in LDL [Mass/Vol] 147 mg/dL 0-130 [facility] Serum or plasma urea nitroge n measurement (mass/volume)Ordered By: Pillo Anderson on 08-29-2022 Urea nitrogen [Mass/Vol] 18 mg/dL 7-18 [facility] Thin prep Papanicolaou smear with manual screeningOrdered By: Pillo Anderson on 08-29-2022 Thin prep Papanicolaou smear with manual screening 18 U/L 15-37 [facility] Thin prep Papanicolaou smear with manual screening 8 5-15 [facility] Whole blood hemoglobin A1c/t otal hemoglobin ratio (mass fraction)Ordered By: Pillo Anderson on 08-29-2022 HbA1c (Bld) [Mass fraction] 5.8 % 3.8-5.6 [facility] Comment on above: Normal < 5.7 % Predi abetic 5.7 - 6.4 % Diabetic >or= 6.5 % Please note range changes. OBSOLETEon 04-23-2017 OBSOLETE Refill (FAMPWS) YARED DUMAS ([id number]) 1960 MDate Time Provider Department04/23/17 GUANAKITO LR FAMPWS During your visit today, we recorded the following information about you:Alexandria Murdock [facility] [place], [facility] 04/23/2017 10:04 AM SignedPatient states he is aware he is due for an appointment but he is switchingPCPs since he has [facility]. He cannot get in with the new pcp until June,please send a temporary supply to the pharmacy attached, please advise.Patient has been identified by name and date of : YesRX INSTRUCTIONS:Patient aware RX will be sent to pharmacy. No need to notify patient.Alexandria Murdock PSRValerie Iván Chowdary Pharm-T 04/23/2017 11:41 AM SignedPharmacist Refill Authorization Patient OutreachAn attempt to gather or give information has been made via Pharmacy Call.Spoke with Lennie at the pharmacy about: Gathering medication information.Summary of the pharmacy interaction: They do have Atenolol in stockValerie J Cortsophie Pharm-TPharmacy Managed Authorization CenterPhone Viridiana Aparicio PharmD 04/24/2017 1:21 PM SignedPSR-Please reach out to the patient to schedule a yearly appointment with PCP.Limited refills approved until thenPark[facility] Healthharmacist Refill Authorization ReviewName: Yared GonzalessMRN: [id number]: 04/24/2017Time: 1:19 PMRefill authorization request(s) received via patient request and reviewed undereffective consult agreement. Upon review, did confirm that an activepatient-provider relationship exists and that the prescriber is a participatingphysician under the consult agreement.The medication(s) fall under the following categories:Category 2: 1 corresponding medication(s) qualifies for limited renewal due toMissing labs. No recent physician visit as required under refill guidelines.Additional actions taken: Ordered follow up visit with prescriber andcommunicated to patient. Prescription(s) issued.Viridiana Aparicio PharmDPharmacy Managed Authorization CenterPhone Current Outpatient Prescriptions:atenolol (TENORMIN) 25 mg tablet Take 1 tablet by mouth once daily.fexofenadine (ROSALINDA) 180 mg tablet Take 180 mg by mouth once daily.LORATADINE/PSEUDO EPHEDRINE (CLARITIN-D 24 HOUR ORAL) Take by mouth.Aspirin 81 mg ORAL Tab Take one(1) tablet daily.THERAPEUTIC MULTIVITAMIN TAB Take one(1) tablet daily.No current facility-administered medications for this visit.Kevin Barnett PSR 04/24/2017 1:52 PM SignedTHE PATIENT STATED ON 04/23 THAT THEY ARE LEAVING THE CLINIC AND GOINGELSEWHERE. THEY ALSO STATED THEY WILL NOT HAVE THAT APPOINTMENT UNTIL June.Allergies As of Date: 04/23/2017 Noted Allergy ReactionPENICILLINS 11/04/2005 5 - Intolerance Comments: As a child -- reaction un-knownBEES 09/13/2012 10 - AnaphylaxisDate Reviewed: 11/09/2016Reviewed by: Juliann Lorenzo [employer] - Fully AssessedReason for Visit: Refill Request [94]Order(s):atenolol (TENORMIN) 25 mg tabletTake 1 tablet by mouth once daily.Disp: 60 tabletRfl: 2Prescriptions as of 04/23/2017 Sig: ATENOLOL 25 MG TABLET Take 1 tablet by mouth once d* FEXOFENADINE 180 MG TABLET Take 180 mg by mouth once abbey* CLARITIN-D 24 HOUR ORAL Take by mouth. ASPIRIN 81 MG TABLET Take one(1) tablet daily. THERAPEUTIC MULTIVITAMIN TABL* Take one(1) tablet daily.Problem List As Of Date 04/23/2017 Noted Resolved HYPERTENSION NOS [I10] INVALID FOR* HYPERLIPIDEMIA NEC/NOS [E78.5] INVALID FOR* OVERWEIGHT [E66.9] INVALID FOR* Routine general medical examination at a health*INVALID FOR*07/17/2012 Class: Chronic More... Gout [M10.9] INVALID FOR* HTN (hypertension) [I10] 01/13/2016 Hyperlipidemia [E78.5] 01/13/2016Prescriptions ordered this encounter Disp Refills Start End ATENOLOL 25 MG TABLET 60 t* 2 04/24/2017 Route: ORAL Sig: Take 1 tablet by mouth once daily.Medications Discontinued During This Encounter atenolol (TENORMIN) 25 mg tablet 90 t* 3 04/17/2016 04/24/2017 Route: ORAL Sig: Take 1 tablet by mouth once daily. Disc: Reason for discontinue is not on file. Status:Closed by KEVIN MCMULLEN on 04/24/17 Normal [facility] Vital Signs Date Time Vital Sign Value Performing Clinician Enidi cam 12-31-2024 10:55-0400 Body height 172.[address] Ximena Gagnon MD Work Phone: [facility] 12-31-2024 10:55-0400 Body mass index (BMI) [Ratio] 32.1 kg/m2 Dr. Ximena Gagnon MD Work Phone: [facility] 12-31-2024 10:55-0400 Body temperature 97.8 [degF] Dr. Ximena Gagnon MD Work Phone: [facility] 12-31-2024 10:55-0400 Body weight 95.[address] Ximena Gagnon MD Work Phone: [facility] 12-31-2024 10:55-0400 Diastolic blood pressure 81 mm[Hg] Dr. Ximena Gagnon MD Work Phone: [facility] 12-31-2024 10:55-0400 Heart rate 65 /min Dr. Ximena Gagnon MD Work Phone: [facility] 12-31-2024 10:55-0400 Respiratory rate 16 /min Dr. Ximena Gagnon MD Work Phone: [facility] 12-31-2024 10:55-0400 SaO2% (BldA) [Mass fraction] 97 % Dr. Ximena Gagnon MD Work Phone: [facility] 12-31-2024 10:55-0400 Systolic blood pressure 134 mm[Hg] Dr. Ximena Gagnon MD Work Phone: [facility] 12-12-2024 08:13-0400 Body height 172.[address] Ximena Gagnon MD Work Phone: [facility] 12-12-2024 08:13-0400 Body mass index (BMI) [Ratio] 32.2 kg/m2 Dr. Ximena Gagnon MD Work Phone: [facility] 12-12-2024 08:13-0400 Body temperature 96.3 [degF] Dr. Ximena Gagnon MD Work Phone: [facility] 12-12-2024 08:13-0400 Body weight 96.[address] Ximena Gagnon MD Work Phone: [facility] 12-12-2024 08:13-0400 Diastolic blood pressure 70 mm[Hg] Dr. Ximena Gagnon MD Work Phone: [facility] 12-12-2024 08:13-0400 Heart rate 66 /min Dr. Ximena Gagnon MD Work Phone: [facility] 12-12-2024 08:13-0400 Respiratory rate 16 /min Dr. Ximena Gagnon MD Work Phone: [facility] 12-12-2024 08:13-0400 SaO2% (BldA) [Mass fraction] 99 % Dr. Ximena Gagnon MD Work Phone: [facility] 12-12-2024 08:13-0400 Systolic blood pressure 130 mm[Hg] Dr. Ximena Gagnon MD Work Phone: [facility] 09-08-2024 08:02-0500 Body mass index (BMI) [Ratio] 34.2 kg/m2 Dr. Ximena Gagnon MD Work Phone: [facility] 09-08-2024 08:02-0500 Body temperature 97.4 [degF] Dr. Ximena Gagnon MD Work Phone: [facility] 09-08-2024 08:02-0500 Body weight 102.[address] Ximena Gagnon MD Work Phone: [facility] 09-08-2024 08:02-0500 Diastolic blood pressure 70 mm[Hg] Dr. Ximena Gagnon MD Work Phone: [facility] 09-08-2024 08:02-0500 Heart rate 50 /min Dr. Ximena Gagnon MD Work Phone: [facility] 09-08-2024 08:02-0500 Respiratory rate 12 /min Dr. Ximena Gagnon MD Work Phone: [facility] 09-08-2024 08:02-0500 SaO2% (BldA) [Mass fraction] 99 % Dr. Ximena Gagnon MD Work Phone: [facility] 09-08-2024 08:02-0500 Systolic blood pressure 112 mm[Hg] Dr. Ximena Gagnon MD Work Phone: [facility] 09-06-2023 17:49-0500 Body height 172.72 cm FURNITURE STAINER-C Pillo Anderson FURNITURE STAINER Work Phone: [facility] 09-06-2023 17:49-0500 Body mass index (BMI) [Ratio] 34 kg/m2 FURNITURE STAINER-C Pillo Anderson FURNITURE STAINER Work Phone: [facility] 09-06-2023 17:49-0500 Body temperature 99.5 [degF] FURNITURE STAINER-C Pillo Anderson FURNITURE STAINER Work Phone: [facility] 09-06-2023 17:49-0500 Body weight 101.6 kg FURNITURE STAINER-C Pillo Anderson FURNITURE STAINER Work Phone: [facility] 09-06-2023 17:49-0500 Diastolic blood pressure 80 mm[Hg] FURNITURE STAINER-C Pillo Anderson FURNITURE STAINER Work Phone: [facility] 09-06-2023 17:49-0500 Heart rate 65 /min FURNITURE STAINER-C Pillo Anderson FURNITURE STAINER Work Phone: [facility] 09-06-2023 17:49-0500 Respiratory rate 14 /min FURNITURE STAINER-C Pillo Anderson FURNITURE STAINER Work Phone: [facility] 09-06-2023 17:49-0500 SaO2% (BldA) [Mass fraction] 95 % FURNITURE STAINER-C Pillo Anderson FURNITURE STAINER Work Phone: [facility] 09-06-2023 17:49-0500 Systolic blood pressure 120 mm[Hg] FURNITURE STAINER-C Pillo Anderson FURNITURE STAINER Work Phone: [facility] 11-24-2022 08:00-0400 Body temperature 97.7 [degF] FURNITURE STAINER-C Pillo Anderson FURNITURE STAINER Work Phone: [facility] 11-24-2022 08:00-0400 Diastolic blood pressure 68 mm[Hg] FURNITURE STAINER-C Pillo Anderson FURNITURE STAINER Work Phone: [facility] 11-24-2022 08:00-0400 Heart rate 50 /min FURNITURE STAINER-C Pillo Anderson FURNITURE STAINER Work Phone: [facility] 11-24-2022 08:00-0400 Respiratory rate 16 /min FURNITURE STAINER-C Pillo Anderson FURNITURE STAINER Work Phone: [facility] 11-24-2022 08:00-0400 SaO2% (BldA) [Mass fraction] 93 % FURNITURE STAINER-C Pillo Anderson FURNITURE STAINER Work Phone: [facility] 11-24-2022 08:00-0400 Systolic blood pressure 113 mm[Hg] FURNITURE STAINER-C Pillo Anderson FURNITURE STAINER Work Phone: [facility] 11-24-2022 06:47-0400 Body height 172.72 cm FURNITURE STAINER-C Pillo Anderson FURNITURE STAINER Work Phone: [facility] 11-24-2022 06:47-0400 Body mass index (BMI) [Ratio] 33.5 kg/m2 FURNITURE STAINER-C Pillo Anderson FURNITURE STAINER Work Phone: [facility] 11-24-2022 06:47-0400 Body weight 100 kg FURNITURE STAINER-C Pillo Anderson FURNITURE STAINER Work Phone: [facility] 09-05-2022 14:52-0500 Body height 172.72 cm FURNITURE STAINER-C Pillo Anderson FURNITURE STAINER Work Phone: [facility] 09-05-2022 14:52-0500 Body mass index (BMI) [Ratio] 34.7 kg/m2 FURNITURE STAINER-C Pillo Anderson FURNITURE STAINER Work Phone: [facility] 09-05-2022 14:52-0500 Body weight 103.41 kg FURNITURE STAINER-C Pillo Anderson FURNITURE STAINER Work Phone: [facility] 08-02-2022 11:29-0500 Body mass index (BMI) [Ratio] 35.7 kg/m2 FURNITURE STAINER-C Pillo Anderson FURNITURE STAINER Work Phone: [facility] 08-02-2022 11:29-0500 Body temperature 97.1 [degF] FURNITURE STAINER-C Pillo Anderson FURNITURE STAINER Work Phone: [facility] 08-02-2022 11:29-0500 Body weight 103.53 kg FURNITURE STAINER-C Pillo Anderson FURNITURE STAINER Work Phone: [facility] 08-02-2022 11:29-0500 Diastolic blood pressure 96 mm[Hg] FURNITURE STAINER-C Pillo Anderson FURNITURE STAINER Work Phone: [facility] 08-02-2022 11:29-0500 Heart rate 60 /min FURNITURE STAINER-C Pillo Anderson FURNITURE STAINER Work Phone: [facility] 08-02-2022 11:29-0500 Respiratory rate 18 /min FURNITURE STAINER-C Pillo Anderson FURNITURE STAINER Work Phone: [facility] 08-02-2022 11:29-0500 SaO2% (BldA) [Mass fraction] 96 % FURNITURE STAINER-C Pillo Anderson FURNITURE STAINER Work Phone: [facility] 08-02-2022 11:29-0500 Systolic blood pressure 156 mm[Hg] FURNITURE STAINER-C Pillo Anderson FURNITURE STAINER Work Phone: [facility] Encounters Encounter Date Encounter Type Care Provider Facility Start: 01-20-2025 ambulatory [facility] ty:[facility] Start: 12-31-2024 End: 12-31-[address] Michoacano Gil MD -[facility] Work Phone: Start: 12-31-2024 End: 12-31-[address] Ximena Gagnon MD Work Phone: [facility] Work Phone: Start: 12-18-2024 End: 12-18-[address] Ximena Gagnon MD Work Phone: [facility] Work Phone: Start: 12-18-2024 End: 12-18-[address] Ximena Gagnon MD -[facility] Work Phone: Start: 12-18-2024 End: 12-18-2024 ambulatory [facility] Facility:[facility] Start: 12-12-2024 End: 12-12-[address] Ximena Gagnon MD -[facility] Work Phone: Start: 12-12-2024 End: 12-12-[address] Ximena aGgnon MD Work Phone: [facility] Work Phone: Start: 12-12-2024 End: 12-12-[facility]24 [facility] Start: 09-12-2024 End: 09-12-[address] Zan Casanova MD -[facility] Work Phone: Start: 09-12-2024 End: 09-12-2024 ambulatory E[facility] Oleghe Facility:[facility] Start: 09-08-2024 End: 09-08-[address] Rene Angela MD -[facility] Start: 09-08-2024 End: 09-08-2024 ambulatory E[facility]ongbe Oleghe Facility:[facility] Start: 09-08-2024 End: 09-08-[address] Ximena Gagnon MD -[facility] Work Phone: Start: 09-08-2024 End: 09-08-2024 ambulatory Efewongbe Oleghe Facility:[facility] Start: 09-08-2024 End: 09-08-2024 ambulatory Efewongbe Olee Facility:[facility] Start: 08-29-2024 End: 08-29-[address] Toi Mcdowell DO -[facility] Work Phone: Start: 08-29-2024 End: 08-29-2024 ambulatory Efewongbe Oleghe Facility:[facility] Start: 07-10-2024 End: 07-10-2024 ambulatory E[facility]ongbe Oleghe Facility:[facility] Start: 07-10-2024 End: 07-10-2024 ambulatory Efewongbe Olee Facility:[facility] Start: 04-30-2024 End: 04-30-2024 ambulatory Efewongbe Oleghe Facility:[facility] Start: 04-21-2024 End: 04-21-2024 [facility]ulatory [facility] Facility:[facility] Start: 04-11-2024 End: 04-11-2024 ambulatory Efewongbe Oleghe Facility:[facility] Start: 03-10-2024 End: 03-10-2024 ambulatory Efewongbe Oleghe Facility:[facility] Start: 03-10-2024 End: 03-[facility] Start: 03-07-2024 End: 03-07-2024 ambulatory E[facility]ongbe Oleghe Facility:[facility] Start: 03-07-2024 End: 03-07-[facility] Start: 10-17-2023 End: 10-17-2023 ambulatory FURNITURE STAINER-C Pillo Anderson FURNITURE STAINER Work Phone: [facility] Work Phone: Start: 10-17-2023 End: 10-17-2023 Patient encounter procedure FURNITURE STAINER-C Pillo Vergarader FURNITURE STAINER Work Phone: [facility]atory[facility] Start: 09-08-2023 End: 09-08-2023 ambulatory FURNITURE STAINER-C Pillo Anderson FURNITURE STAINER Work Phone: [facility] Work Phone: Start: 09-08-2023 End: 09-08-2023 Patient encounter procedure FURNITURE STAINER-C Pillo Anderson FURNITURE STAINER Work Phone: [facility] Work Phone: Start: 09-06-2023 End: 09-06-2023 Encounter for general adult medical examination without abnormal findings FURNITURE STAINER-C Pillo Anderson FURNITURE STAINER Work Phone: [facility] Start: 09-06-2023 End: 09-06-2023 Patient encounter procedure FURNITURE STAINER-C Pillo Anderson FURNITURE STAINER Work Phone: [facility] Work Phone: Start: 12-05-2022 End: 12-05-2022 ambulatory FURNITURE STAINER-C Pillo Anderson FURNITURE STAINER Work Phone: [facility] Work Phone: Start: 12-05-2022 End: 12-05-2022 Patient encounter procedure FURNITURE STAINER-C Pillo Anderson FURNITURE STAINER Work Phone: [facility] Start: 11-24-2022 Non-patient / Non-visit FURNITURE STAINER-C Paresh Anderson FURNITURE STAINER Work Phone: [facility] Start: 11-24-2022 End: 11-24-2022 Admission to same day surgery center FURNITURE STAINER-C Pillo Anderson FURNITURE STAINER Work Phone: [facility]-Endoscopy Start: 11-24-2022 End: 11-24-2022 ambulatory FURNITURE STAINER-C Pillo Anderson FURNITURE STAINER Work Phone: [facility] Work Phone: Start: 09-05-2022 Non-patient / Non-visit FURNITURE STAINER-C Paresh Anderson FURNITURE STAINER Work Phone: [facility] Start: 08-29-2022 End: 08-29-2022 ambulatory FURNITURE STAINER-C Pillo Anderson FURNITURE STAINER Work Phone: [facility] Work Phone: Start: 08-29-2022 Patient encounter status FURNITURE STAINER-C Pillo Anderson FURNITURE STAINER Work Phone: [facility] Start: 08-29-2022 End: 08-29-2022 Encounter for general adult medical examination without abnormal findings FURNITURE STAINER-C Pillo Anderson FURNITURE STAINER Work Phone: [facility] Start: 08-29-2022 End: 08-29-2022 Patient encounter procedure FURNITURE STAINER-C Pillo Anderson FURNITURE STAINER Work Phone: [facility] Start: 05-16-2021 Patient encounter status FURNITURE STAINER-C Pillo Anderson FURNITURE STAINER Work Phone: [facility] Procedures Date Procedure Procedure Detail Performing Clinician Start: 12-18-2024 Measurement of occul t blood in stool specimen using immunoassay Dr. Ximena Gagnon MD Work Phone: Start: 12-12-2024 Total iron binding c apacity measurement Dr. Ximena Gagnon MD Work Phone: Start: 09-08-2024 End: 09-08-2024 Plain X-ray of shoulder Dr. Ximena fisher MD Work Phone: Start: 09-08-2024 Measurement of renal function Dr. Ximena Gagnon MD Work Phone: Comment on above: GFR Calc Start: 09-08-2024 Prostate specific an tigen measurement Dr. Ximena Gagnon MD Work Phone: Comment on above: This test was perfor med using the TPSA assay method for drumbi chemistry system. Values obtained with differentassay methods cannot be used interchangably.When changing PSA assays in the course of monitoring apatient, additional sequential testing should be carriedout to confirm baseline values. Start: 11-24-2022 Colonoscopy FURNITURE STAINER-C Pillo Anderson FURNITURE STAINER Work Phone: Plan of Treatment Date Care Activity Detail Author Start: 09-12-2024 Patient referral [facility] Work Phone: Start: 11-24-2022 Colsc flx w/rmvl of tumor polyp lesion snare tq COLONOSCOPY W/LESION REMOVAL [facility] Start: 11-24-2022 Patient discharge [facility] Start: 08-29-2022 Patient referral [facility] Work Phone: Colonoscopy [facility] Hemoglobin A1c/Hemoglobin.total in Blood [facility] Patient referral [facility] Work Phone: Immunizations Immunization Date Immunization Notes Care Provider Fa cility 05-04-2022 Covid Moderna Bivale nt Booster Dr. Ximena Gagnon MD Work Phone: [facility] 08-15-2021 zoster vaccine recombinant FURNITURE STAINER-C Pillo Anderson FURNITURE STAINER Work Phone: [facility] 06-23-2021 Covid (Moderna) Dr. Jean Gagnon MD Work Phone: [facility] 05-25-2021 zoster vaccine recombinant FURNITURE STAINER-C Pillo Anderson FURNITURE STAINER Work Phone: [facility] 11-11-2020 Covid (Moderna) Dr. Jean Gagnon MD Work Phone: [facility] 10-15-2020 Covid (Moderna) Dr. Jean Gagnon MD Work Phone: [facility] Payers Date Payer Category Payer Self-pay [id number] 2023 Unknown [id number] Private Health Insurance JOEL DASH [id number] Unknown [facility] [id number] Unknown [id number] [id number]. 462 Unknown [id number] 2.16.840.1.221897.3.579.2. 462 Unknown [id number] 2.16.840.1.047793.3.579.2. 462 Unknown [id number] 2.16.840.1.116170.3.579.2. 462 Unknown [id number] 2.16.840.1.866544.3.579.2. 462 Unknown [id number] 2.16.840.1.085291.3.579.2. 462 Unknown [id number] 2.16.840.1.319522.3.579.2. 462 Unknown [id number] 2.16.840.1.151676.3.579.2. 462 Unknown [id number] 2.16.840.1.243357.3.579.2. 462 Unknown [id number] 2.16.840.1.459502.3.579.2. 462 Unknown [id number] 2.16.840.1.995087.3.579.2. 462 Unknown [id number] 2.16.840.1.318272.3.579.2. 462 Unknown [id number] 2.16.840.1.117686.3.579.2. 462 Unknown [id number] 2.16.840.1.204489.3.579.2. 462 Unknown [id number] 2.16.840.1.386518.3.579.2. 462 Unknown [id number] 2.16.840.1.769116.3.579.2. 462 Unknown [id number] 2.16.840.1.842781.3.579.2. 462 Unknown [id number] 2.16.840.1.348556.3.579.2. 462 Unknown [id number] 2.16.840.1.326537.3.579.2. 462 Unknown [id number] 2.16.840.1.458116.3.579.2. 462 Social History Date Type Detail Facility Start: 08-29-2022 End: 09-06-2023 Tobacco smoking status WVIS Unknown if ever smoked [facility] Start: 1960 Sex Assigned At Male [facility] Start: 09-11-2024 Tobacco smoking stat us WVIS Never smoked tobacco (finding) [facility] Goals Date Patient Goal Desired Activity /State Mental Status Date Assessment Result Facility 11-24-2022 Cognitive function Touch/Shaking [facility] Work Phone: Evaluation note 09-08-2024 Note Date & Type Note Facility 09-08-2024 Evaluation note Diagnosis Onset Date Resolution Bilateral shoulder pain acute F [facility] 2024 7:57am Borderline type 2 diabetes mellitus chronic September 08, 2024 7:57am Hypertension chronic September 7:57am Obesity (BMI 30-39.9) chronic Sep 7:57am Bilateral shoulder pain acute F 2024 7:48am Borderline type 2 diabetes mellitus chronic December 12, 2024 8:09am Hyperlipemia chronic December 12 8:09am Hypertension chronic December 12 8:09am Obesity (BMI 30-39.9) chronic December 12, 2024 8:09am [facility] Work Phone: Evaluation note 08-29-2024 Note Date & Type Note Facility 08-29-2024 Evaluation note Diagnosis Onset Date Resolution Right knee DJD acute August 292024 7:55am Bilateral shoulder pain acute F [facility]2024 7:57am Borderline type 2 diabetes mellitus chronic September 08, 2024 7:57am Hypertension chronic September 7:57am Obesity (BMI 30-39.9) chronic Feb ruary 2024 7:57am Bilateral shoulder pain acute F ebruary 2024 7:48am Borderline type 2 diabetes mellitus chronic December 12, 2024 8:09am Hyperlipemia chronic December 12 8:09am Hypertension chronic December 12 8:09am Obesity (BMI 30-39.9) chronic December 12, 2024 8:09am [facility] Work Phone: Procedure note 11-24-2022 Note Date & Type Note Facility 11-24-2022 Procedure note [facility] Procedure note 11-24-2022 Note Date & Type Note Facility 11-24-2022 Procedure note [facility] Evaluation note Note Date & Type Note Facility Evaluation note Diagnosis Onset Date Encounter for preventative a dult health care examination acute Hypertension chronic [facility] Work Phone: Evaluation note Note Date & Type Note Facility Evaluation note Diagnosis Onset Date Encounter for preventative a dult health care examination acute Hypertension chronic Encounter for screening for malignant neoplasm of colon acute [facility] Work Phone: Evaluation note Note Date & Type Note Facility Evaluation note Diagnosis Onset Date Borderline type 2 diabetes mellitus acute Encounter for preventative a dult health care examination acute Obesity (BMI 30-39.9) acute Hypertension chronic [facility] Work Phone: History and physical note Note Date & Type Note Facility History and physical note Note Date/Time November 24, 2022 7:18am [facility] Medical Records Department [address] [place] [address] History & Physical Exam 11/24/22 0716 MR#: [id number] Acct: [id number] Name: YARED PEPE Rep #:[id number] : 1960 62 From: Michoacano correia MD PCP: Pillo Anderson FURNITURE STAINER-C Status:[employer] Location: [place] [address] HPI - General HPI Narrative YARED PEPE, is a 62 M who presents for screening colonoscopy. Patient has had his last colonoscopy about 10 years ago. He denies any abdominal pain or blood in stool. Patient denies any family history of colon cancer except for his grandmother. [facility] Medical History (Updated 11/21/22 @ 10:49 by Debbie Vickers) Alcohol use Bilateral foot pain Encounter for preventative adult health care examination [facility] Health care maintenance History of deviated nasal septum History of stress test Hyperlipemia Hypertension Need for shingles vaccine Non-smoker Obesity (BMI 30-39.9) Home Medications aspirin 81 mg capsule 81 mg PO DAILY 05/16/21 [History Last Taken 11/23/22] multivitamin 1 tab PO DAILY 05/16/21 [History Last Taken Unknown] atenolol 50 mg tablet 50 mg PO DAILY #90 tabs 08/29/22 [Rx Last Taken 11/24/22] fexofenadine 60 mg tablet (Rosalinda Allergy) 60 mg PO DAILY 09/05/22 [History Last Taken Unknown] lisinopril 10 mg tablet 20 mg PO QDAY 11/21/22 [History Last Taken 11/24/22] Allergy/AdvReac Type Severity Reaction Status Date / Time Penicillins Allergy Unknown unknown Verified 11/24/22 06:39 Family History Father Heart disease Daughter No problems noted. Mother Breast cancer Grandmother Colon cancer Grandfather Heart disease Surgical History (Updated 11/21/22 @ 10:49 by Debbie Vickers) History of colonoscopy Hx of knee surgery Social History Smoking Status: Never smoker alcohol intake: current alcohol intake frequency: holidays/special occasions only substance use type: does not use what type of physical activity do you participate in: none Past Medical/Surgical History Planned Operation Planned Operative Procedure/s: CSCOPE OA Previous Hospitalizations/Surgeries HX Hospitalizations: No Any Problems With Anesthesia: No You/Your Family Experience Fever (Hyperthermia) With Anes: No Cholinesterase deficiency: No Cardiovascular Hx Hypertension: Yes (CONTROLLED WITH MEDS) Respiratory Hx Sleep Apnea: No Hx Respiratory Tract Infection/Cold (presently): No Do You Snore Loudly (louder than talking or can be heard): Yes Do You Often Feel Tired/ Fatigued/ Sleepy Dring Daytime?: No Has Anyone Observed You Stop Breathing During Sleep?: No Result (for STOP score): Positive Smoking Status: Never smoker Neurological Does patient have nerve stimulator: No Reproduction : No Miscellaneous Recent Exposure to Contagious Disease: No Allergies Penicillins Allergy (Unknown, Verified 11/24/22 06:39) unknown Discharge Is Pt Admitted From a Snf, or a Jail: No After D/C, Where Do you Plan to Go: Return Home Vital Signs Vital Signs Vital Signs: 11/24/22 06:47 11/24/22 06:47 Temperature 98.2 F Temperature Source Temporal Pulse Rate 59 L Respiratory Rate 16 Respiratory Pattern Normal Blood Pressure 150/84 H Blood Pressure Mean 106 Blood Pressure Source Monitor Blood Pressure Position Semi-Fowlers Blood Pressure Location Left Arm Pulse Ox 97 Oxygen Delivery Method Room Air Weight Weight: 220 lb 7.396 oz Body Mass Index (BMI) 33.5 Physical Exam Const alert and oriented x3 HEENT normocephalic Eyes PERRL Resp normal respiratory effort and normal air movement Cardio regular rate and regular rhythm GI soft to palpation, non-tender and non-distended Extremity normal to inspection Assessment & Plan Assessment/Plan (1) Encounter for screening for malignant neoplasm of colon: PLAN: I explained endoscopy in detail to the patient. I explained the risks including but not limited to stroke or heart attack with anesthesia, perforationof the GI tract, bleeding, infection. I explained that any of these could necessitate further emergency surgery. The patient understands and all questions were answered sufficiently. The patient wishes to proceed with procedure. Michoacano Gil MD Pager: [facility] [address] [place] [address], [address] [place] [address] Office: Surgery Risks - Colonoscopy Risks Include but are not Limited To: Risks include but are not limited to: Bleeding, perforation requiring further surgery, inability to complete colonoscopy requiring barium enema. 11/24/2218 <Electronically signed by Michoacano Gil MD> Cosigner Signature (if applicable): CC: MUNIRA Anderson; Dr. Michoacano Gil MD~ Signed [facility] Work Phone: Summary Purpose Family History No Family History Records Found Relationship Condition Age at Onset Recorded Date/T rita father Cardiac disease Unknown mother Malignant neoplasm of breast Unknown grandmother Malignant neoplasm of colon Unknown grandfather Cardiac disease Unknown Advance Directives No Advanced Directives Records Found Advance Directive Response Recorded Date/ Time Living Will No November 21, 2022 10:45am Power of Gis Database Administrator No November 21 10:45am Advance Directive Response Recorded Date/ Time Living Will No November 21, 2022 9:45am Power of Gis Database Administrator No November 21 9:45am Advance Directive Response Recorded Date/ Time Living Will No November 21, 2022 10:45am Do you have a Healthcare Power of Gis Database Administrator? No November 21, 2022 10:45am Chief Complaint and Reason for Visit Chief Complaint 1 Y FU Amb Documentation Reason for Visit Encounter for preven tative adult health care examination Hypertension Chief Complaint 1 Y FU Amb Documentation Reason for Visit Encounter for preven tative adult health care examination Hypertension Encounter for screening for malignant neoplasm of colon Chief Complaint FURNITURE STAINER. RE-EST Reason for Visit Borderline type 2 di abetes mellitus Encounter for preventative adult health care examination Obesity (BMI 30-39.9) Hypertension Chief Complaint Admit Date RIGHT KNEE August 29, 2024 7 :55am 6 M FU September 08, 2024 7 :57am XRAY September 08, 2024 9 :20am BL SHOULDER September 12, 2024 7 :48am 3 M FU December 12, 2024 8:09am Reason for Visit Admit Date Right knee DJD August 29, 2024 7 :55am Bilateral shoulder pain September 08 7:57am Borderline type 2 diabetes mellitus [facility]2024 7:57am Hypertension September 08, 2024 7 :57am Obesity (BMI 30-39.9) September 08, 2024 7:57am Bilateral shoulder pain September 12 7:48am Borderline type 2 diabetes mellitus December 12, 2024 8:09am Hyperlipemia December 12, 2024 8:09am Hypertension December 12, 2024 8:09am Obesity (BMI 30-39.9) December 12, 2024 8:09 am Chief Complaint Admit Date RIGHT KNEE August 29, 2024 7 :55am 6 M FU September 08, 2024 7 :57am XRAY September 08, 2024 9 :20am BL SHOULDER September 12, 2024 7 :48am 3 M FU December 12, 2024 8:09am E-ORDER December 18, 2024 7:40a m Chief Complaint Admit Date 6 M FU September 08, 2024 7 :57am XRAY September 08, 2024 9 :20am BL SHOULDER September 12, 2024 7 :48am 3 M FU December 12, 2024 8:09am E-ORDER December 18, 2024 7:40a m ANEMIA/POSITIVE OCCULT December 31, 2024 10 :41am Reason for Visit Admit Date Bilateral shoulder pain September 08 7:57am Borderline type 2 diabetes mellitus Febr ua2024 7:57am Hypertension September 08, 2024 7 :57am Obesity (BMI 30-39.9) September 08, 2024 7:57am Bilateral shoulder pain September 12 7:48am Borderline type 2 diabetes mellitus December 12, 2024 8:09am Hyperlipemia December 12, 2024 8:09am Hypertension December 12, 2024 8:09am Obesity (BMI 30-39.9) December 12, 2024 8:09 am Additional Source Comments (unrecognized sect ion and content) No Status Records FoundNo Status Records Found INFORMATION SOURCE (unrecogn ized section and content) DATE CREATED AUTHOR 01/30/2018 [facility] DATE CREATED AUTHOR AUTHOR'S ORGANIZ ATION 01/19/2025 [facility] Care Teams (unrecognized sec tion and content) Team Status: Active Member Role Status Dates Carrie [place] Family Provider Active Pillo Anderson FURNITURE STAINER, FURNITURE STAINER-C Primary Care Provider Active Team Status: Inactive Member Role Status Dates Pillo Anderson NP, FURNITURE STAINER-C Primary Care Provider, Attending P aman Active Dr. Ximena Gagnon MD Referring Provider Active Team Status: Active Member Role Status Dates Pillo Anderson FURNITURE STAINER, FURNITURE STAINER-C Primary Care Provider Active Donna Becerril Attending Provider Active Team Status: Inactive Member Role Status Dates Pillo Anderson FURNITURE STAINER, FURNITURE STAINER-C Primary Care Provide r, Attending Provider, Referring Provider Active Team Status: Active Member Role Status Dates Pillo Anderson NP, FURNITURE STAINER-C Primary Care Provider, Referring P rojamarder Active Dr. Michoacano Gil MD Attending Provider, Other Provider Active Team Status: Inactive Member Role Status Dates Pillo Anderson NP, FURNITURE STAINER-C Primary Care Provider, Referring P roamarjit Active Dr. Michoacano Gil MD Attending Provider Active Team Status: Active Member Role Status Dates Carrie [place] Family Provider Active Dr. Ximena Gagnon MD Primary Care Provider Active Team Status: Inactive Member Role Status Dates Pillo Anderson FURNITURE STAINER, FURNITURE STAINER-C Primary Care Provider, Referring P rovider Active Dr. Ximena Gagnon MD Attending Provider Active Team Status: Inactive Member Role Status Dates Dr. Ximena Gagnon MD Primary Care P rovider, Attending Provider, Referring Provider Active Team Status: Active Member Role Status Dates Dr. Ximena Gagnon MD Primary Care Provider Active Team Status: Inactive Member Role Status Dates Dr. Ximena Gagnon MD Primary Care Provider Active Start: August 29, 2024 End: August 29, 2024 Dr. Ximena Gagnon MD Referring Provider Active Start: August 29, 2024 End: August 29, 2024 Dr. Toi Mcdowell DO Attending Provider Active Start: August 29, 2024 End: August 29, 2024 Team Status: Inactive Member Role Status Dates Dr. Ximena Gagnon MD Primary Care Provider Active Start: September 08, 2024 End: September 08, 2024 Dr. Ximena Gagnon MD Attending Provider Active Start: September 08, 2024 End: September 08, 2024 Dr. Ximena Gagnon MD Referring Provider Active Start: September 08, 2024 End: September 08, 2024 Team Status: Inactive Member Role Status Dates Dr. Ximena Gagnon MD Primary Care Provider Active Start: September 08, 2024 End: September 08, 2024 Dr. Rene Angela MD Attending Provider Active S tart: September 08, 2024 End: September 08, 2024 Team Status: Inactive Member Role Status Dates Dr. Ximena Gagnon MD Primary Care Provider Active Start: September 12, 2024 End: September 12, 2024 Dr. Ximena Gagnon MD Referring Provider Active Start: September 12, 2024 End: September 12, 2024 Zan Casanova MD Attending Provider Active St art: September 12, 2024 End: September 12, 2024 Team Status: Inactive Member Role Status Dates Dr. Ximena Gagnon MD Primary Care Provider Active Start: December 12, 2024 End: December 12, 2024 Dr. Ximena Gagnon MD Attending Provider Active Start: December 12, 2024 End: December 12, 2024 Dr. Ximena Gagnon MD Referring Provider Active Start: December 12, 2024 End: December 12, 2024 Team Status: Inactive Member Role Status Dates Dr. Ximena Gagnon MD Primary Care Provider Active Start: December 18, 2024 End: December 18, 2024 Dr. Ximena Gagnon MD Attending Provider Active Start: December 18, 2024 End: December 18, 2024 Dr. Ximena Gagnon MD Referring Provider Active Start: December 18, 2024 End: December 18, 2024 Team Status: Inactive Member Role Status Dates Dr. Ximena Gagnon MD Primary Care Provider Active Start: December 31, 2024 End: December 31, 2024 Dr. Ximena Gagnon MD Referring Provider Active Start: December 31, 2024 End: December 31, 2024 Dr. Michoacano Gil MD Attending Provider Active Start: December 31, 2024 End: December 31, 2024 Goals (unrecognized section and content) Goals may be documented in a n alternate sectionGoals may be documented in an alternate sectionGoals may be documented in an alternate sectionGoals may be documented in an alternate sectionGoals may be documented in an alternate sectionGoals may be documented in an alternate section FOR RECORDS PERTAINING TO PATIENTS WHO ARE [...] BE BASED ON THE PRIMARY CLINICAL RECORDS. MD [facility]. provides no warranty or guarantee of the accuracy or completeness of information in this document.
--- NOTE | 2025-01-20 06:52 | PCM.HP.BLA ---
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 Required: No Accompanied by: Self Is patient in pain?: No Allergies Penicillins Allergy (Unknown, Verified 12/31/24 10:48) unknown Medications ?Medication ?Instructions ?Recorded ?Confirmed ?Type aspirin 81 mg capsule 81 mg PO DAILY 05/16/21 12/31/24 History multivitamin 1 tab PO DAILY 05/16/21 12/31/24 History fexofenadine 60 mg tablet (Rosalinda 60 mg PO DAILY 09/05/22 12/31/24 History Allergy) atenolol 50 mg tablet 50 mg PO DAILY #90 tabs 08/20/23 12/31/24 Rx ibuprofen 200 mg capsule 200 mg PO Q6H PRN 08/29/24 12/31/24 History rosuvastatin 20 mg tablet 20 mg PO DAILY #90 tabs 10/09/24 12/31/24 Rx lisinopril 20 1 tab PO DAILY #90 tabs 12/17/24 12/31/24 Rx mg-hydrochlorothiazide 12.5 mg tablet phentermine 37.5 mg tablet 18.75 mg (1/2 x 37.5 mg) PO QDAY 12/30/24 12/31/24 Rx (Adipex-P) #30 tabs PFSH Medical History Positive occult stool blood test Anemia Screening for prostate cancer Bilateral shoulder pain Borderline type 2 diabetes mellitus Alcohol use Non-smoker History of stress test History of deviated nasal septum Encounter for preventative adult health care examination Obesity (BMI 30-39.9) Need for shingles vaccine Bilateral foot pain Health care maintenance Hyperlipemia Hypertension Gout Surgical History Hx of knee surgery History of colonoscopy Family History Father Heart diseaseDaughter No problems noted. Mother Breast cancerGrandmother Colon cancerGrandfather Heart disease Social History adopted: No household members: spouse current occupational status: employed current occupation: [employer] pets and animals: No Smoking Status: Never smoker alcohol intake: current alcohol intake frequency: holidays/special occasions only substance use type: does not use caffeine: Yes (3-4) Type: carbonated beverages what type of physical activity do you participate in: none seatbelt use: always do you feel safe at home: Yes HPI HPI HPI: Patient is a 64-year-old male here for iron deficiency anemia and positive fecal occult blood. Patient is on aspirin. He denies abdominal pain. He had his last colonoscopy about 3 years ago. This was normal. He denies any gross blood in the stool. ROS General General: No weight change, fatigue, colon cancer or breast cancer HEENT HEENT: No difficulty swallowing, eye injury, eye surgery or swollen glands Endo Endocrine: No thyroid disease, diabetes mellitus or thyroid cancer Skin Skin: No rash or changing moles Musc Musculoskeletal: No back problems, arthritis, rheumatoid arthritis or gout Cardio Cardiovascular: No murmur, pacemaker, heart disease, atrial fibrillation, high blood pressure, heart attack or heart stent Psych Psychiatric: No depression or anxiety Resp Respiratory: No shortness of breath, No sleep apnea, No cough, No COPD, No asthma and No emphysema Gastro Gastrointestinal: No abdominal pain, No nausea or vomiting, No diarrhea, No constipation, No blood in stool, No acid reflux, No hemorrhoids, No ulcers, No gallbladder problem and No black,tarry stools Alek Hematologic: Yes blood thinners, No blood disorders, No bleeding, No anemia and No blood clots Neuro Neurologic: No numbness and No tingling Exam Const General: cooperative Orientation: alert and oriented x3 HENMT Head: normal to inspection Neck Neck: normal visual inspection and full ROM Chest Chest palpation & inspection: normal inspection of the chest Resp Effort & Inspection: normal respiratory effort Auscultation: clear to auscultation bilaterally Cardio Rate: regular rate Rhythm: regular rhythm GI Inspection: non-distended Palpation: soft and nontender Skin General: no rashes or lesions noted Neuro General: patient alert and patient oriented x3 Extrem General: full ROM Psych Appearance: grossly normal Mental Status: mental status grossly normal Assessment and Plan Assessment and Plan (1) Positive occult stool blood test: Status: Acute (2) Anemia: Status: Acute Orders: Orders Colonoscopy Today EGD Today Plan The patient has anemia and a positive fecal occult blood test. I discussed performing EGD as well as colonoscopy to evaluate the GI tract. I explained endoscopy in detail to the patient. I explained the risks including but not limited to stroke or heart attack with anesthesia, perforation of the GI tract, bleeding, infection. I explained that any of these could necessitate further emergency surgery. The patient understands and all questions were answered sufficiently. The patient wishes to proceed with procedure. Patient will hold his aspirin for 5 days prior to surgery. Michoacano Gil MD Pager: [facility] [address] [place] [address], [address] [place] [address] Office: I have examined the patient and the H&P has been reviewed. There are no clinical changes since date of exam.
[2025-01-20] MEDS: Lactated Ringers 1,000 ML 15 ML IV (06:58)
--- NOTE | 2025-01-20 07:14 | PRE.ANES_ITS ---
ASA Classification* ASA Classification ASA Classification: 2 Assessment & Plan Anesthesia* Anesthesia Assessment Anesthesia Assessment: Discussed sedation and/or anesthesia options, risks, benefits, and alternatives with patient/parents/legal guardian/POA. Questions invited. The patient/parents/legal guardian/POA seems to understand and agrees to proceed with anesthesia plan. Reviewed the physical assessment, medical history, allergy history and patient home medications list prior to surgery/procedure/anesthetic and documented any changes. Performed airway and anesthesia risk assessments. Anesthesia Type Anesthesia Type: General History Source History Obtained from:: Patient and Chart Anesthesia Focused Assessment* Temperature: 98.1 F Pulse Rate: 55 Blood Pressure: 133/81 Respiratory Rate: 16 Pulse Ox: 98 Oxygen Delivery Method: Room Air Airway Assessment Mouth opens: >3 cm Mallampati Score: II Teeth Condition: Intact Neck Range of motion (ROM): Full ROM Labs Anesthesia Preop lab: CBC WBC 9.2 K/mm3 (4.4-11.0) 12/12/24 08:50 12/12/24 RBC 4.35 M/mm3 (4.6-6.2) L 12/12/24 08:50 12/12/24 Hgb 12.6 g/dL (13.0-16.5) L 12/12/24 08:50 5 Hct 38.3 % (40-54) L 12/12/24 08:50 12/12/24 Plt Count 355 K/mm3 (150-450) 12/12/24 08:50 12/12/24 CHEMISTRY Potassium 5.0 mmol/L (3.3-5.1) 12/12/24 08:50 12/12/24 Sodium 134 mmol/L (133-145) 12/12/24 08:50 12/12/24 BUN 16 mg/dL (4-19) 12/12/24 08:50 12/12/24 Creatinine 1.06 mg/dL (0.70-1.20) 12/12/24 08:50 12/12/24 Glucose 110 mg/dL (70-99) H 12/12/24 08:50 12/12/24 TSH 1.09 uIU/mL (0.358-3.74) 08/29/22 08:33 COAG Pre-Assessment Diagnosis/Proposed Procedure Planned Operative Procedure(s): COLONOSCOPY/EGD Anesthesia History 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 When Was Last Pacemaker Check QUESTION #4 FULL TEXT: You/Your Family Experience fever (hyperthermia) with Anesthesia Last Oral Intake Last Oral intake: Last Oral Intake NPO since 03:30 01/20/25 06:49 Meds taken in AM with sips of Yes 01/20/25 06:49 water? 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 - theater set production designer: PONV - theater set production designer Female No 01/16/25 13:09 HX of Motion Sickness No 01/16/25 13:09 HX of N/V After Surgery No 01/16/25 13:09 Non-Smoker Yes 01/16/25 13:09 Duration of Surgery greater No 01/16/25 13:09 than 60 minutes Number of Risk Factors 1 01/16/25 13:09 PONV Score Low Risk 01/16/25 13:09 Height & Weight Height & Weight: Anesthesia: Height & Weight Height 5 ft 7 in 01/20/25 06:49 Weight: 93 kg 01/20/25 06:49 Body Mass Index (BMI) 32.1 01/20/25 06:49 Respiratory Assessment Respiratory Assessment - theater set production designer: Respiratory Tract Infection Hx - theater set production designer Hx Respiratory Tract Infection No 01/16/25 13:09 STOP Sleep Apnea STOP Sleep Apnea - theater set production designer: STOP Sleep Apnea - theater set production designer Hx Hypertension Yes: CONTROLLED WITH MEDS 01/16/25 13:09 Hx Sleep Apnea No 01/16/25 13:09 CPAP BIPAP Do you snore loudly (louder No 01/16/25 13:09 than talking or can be heard Do you often feel tired/ No 01/16/25 13:09 fatigued/ sleepy during daytime? Has anyone observed you stop No 01/16/25 13:09 breathing during sleep? STOP Results Negative 01/16/25 13:09 QUESTION #5 FULL TEXT : Do you snore loudly (louder than talking or can be heard through closed doors)? 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 Specify any problems Hx of Preganancy in last 3 N/A 01/16/25 13:09 Months Nurse Filling Out Transfusion VCHRISTIN 01/16/25 13:09 & Questions: Date: 01/16/25 01/16/25 13:09 Time: 13:10 01/16/25 13:09 Patient unable to answer at this time (ie. confused, unrespo /Reproduction History /Reproductive History - theater set production designer: /Reproductive Hx- theater set production designer Hx Now No 01/16/25 13:09 Gestational Age (in weeks): EDC: Hx Hx Para Hx Section SAB No 01/16/25 13:09 Active Medications Active Medications: Current Medications Generic Name Dose Route Start Last Admin Trade Name Freq PRN Reason Stop Dose Admin Lactated Ringer's 1,000 mls @ 15 mls/hr 01/20/25 06:45 01/20/25 06:58 IV 15 mls/hr .Q48H ERRE Administration PFSH Medical History (Updated 01/16/25 @ 13:09 by Amarilys Wynne) Positive occult stool blood test Anemia Screening for prostate cancer Bilateral shoulder pain Borderline type 2 diabetes mellitus Alcohol use Non-smoker History of stress test History of deviated nasal septum Encounter for preventative adult health care examination Obesity (BMI 30-39.9) Need for shingles vaccine Bilateral foot pain Health care maintenance Hyperlipemia Hypertension Gout Home Medications ?Medication ?Instructions ?Recorded ?Last Taken ?Type aspirin 81 mg capsule 81 mg PO DAILY 05/16/2101/04 History multivitamin 1 tab PO DAILY 05/16/2101/04 History fexofenadine 60 mg tablet (Rosalinda 60 mg PO DAILY 08/08 08/28 Unknown History Allergy) atenolol 50 mg tablet 50 mg PO DAILY #90 tabs 08/0601/20/25 05:30 Rx ibuprofen 200 mg capsule 200 mg PO Q6H PRN pain 08/29 Unknown History rosuvastatin 20 mg tablet 20 mg PO DAILY #90 tabs 01/28 Unknown Rx lisinopril 20 1 tab PO DAILY #90 tabs 12/04 11/28 Unknown Rx mg-hydrochlorothiazide 12.5 mg tablet phentermine 37.5 mg tablet 18.75 mg (1/2 x 37.5 mg) PO QDAY 12/30/24 01/13/25 Rx (Adipex-P) #30 tabs Allergy/AdvReac Type Severity Reaction Status Date / Time Penicillins Allergy Unknown unknown Verified 01/20/25 06:48 Family History Father Heart disease Daughter No problems noted. Mother Breast cancer Grandmother Colon cancer Grandfather Heart disease Surgical History (Updated 01/16/25 @ 13:09 by Amarilys Wynne) Hx of colonoscopy Hx of knee surgery History of colonoscopy Social History adopted: No household members: spouse current occupational status: employed current occupation: [employer] pets and animals: No Smoking Status: Never smoker alcohol intake: current alcohol intake frequency: holidays/special occasions only substance use type: does not use caffeine: Yes (3-4) Type: carbonated beverages what type of physical activity do you participate in: none seatbelt use: always do you feel safe at home: Yes Review of Systems (Anesthesia) ROS Narrative System reviewed and no additional complaints, except as documented. Physical Exam Const alert, oriented x3 and average body habitus Resp normal respiratory effort, normal air movement and clear to auscultation bilaterally Cardio regular rate, regular rhythm, no murmurs and diaphoretic
--- NOTE | 2025-01-20 08:18 | OP.CCLET_ITS ---
01/20/2025 Ximena Gagnon MD [address] [place] [address] [place] [address] Re : Upper GI endoscopy procedure for Samuel Jackson (rob) Dear Dr. Gagnon This procedure was performed on Monday, January 20, 2025. My impressions and recommendations are as follows: Impressions : - Normal esophagus. - Normal stomach. - Normal examined duodenum. - No specimens collected. Recommendations : - Discharge patient to home. - Resume previous diet. - Continue present medications. My findings are described in the full procedure note, which is enclosed. If I can be of further assistance, please feel free to contact me at Doctor phone number(s): , Work: . Sincerely, Michoacano Gil MD 01/20/2025 8:17:44 AM This report has been signed electronically.
--- NOTE | 2025-01-20 08:18 | OP.EGD_ITS ---
Patient Name: Samuel Jackson (rob) Procedure Date: 01/20/2025 7:47 AM Date of : 1960 Age: 64 Procedure: Upper GI endoscopy Indications: Iron deficiency anemia Providers: Michoacano Gil MD Referring MD: Ximena Gagnon MD Medicines: Propofol per Anesthesia Patient Profile: This is a 64 year old male. Refer to note in patient chart for documentation of history and physical. Complications: No immediate complications. Procedure: Pre-Anesthesia Assessment: - Prior to the procedure, a History and Physical was performed, and patient medications and allergies were reviewed. The patient's tolerance of previous anesthesia was also reviewed. The risks and benefits of the procedure and the sedation options and risks were discussed with the patient. All questions were answered, and informed consent was obtained. Prior Anticoagulants: The patient has taken no anticoagulant or antiplatelet agents. After reviewing the risks and benefits, the patient was deemed in satisfactory condition to undergo the procedure. After obtaining informed consent, the endoscope was passed under direct vision. Throughout the procedure, the patient's blood pressure, pulse, and oxygen saturations were monitored continuously. The Colonoscope was introduced through the mouth, and advanced to the fourth part of duodenum. The upper GI endoscopy was accomplished without difficulty. The patient tolerated the procedure well. Scope In: 7:59:53 AM Scope Out: 8:01:55 AM Total Procedure Duration Time 0 hours 2 minutes 2 seconds Findings: The esophagus was normal. The stomach was normal. The examined duodenum was normal. Impression: - Normal esophagus. - Normal stomach. - Normal examined duodenum. - No specimens collected. Recommendation: - Discharge patient to home. - Resume previous diet. - Continue present medications. Procedure Code(s): --- Professional --- 40189, Esophagogastroduodenoscopy, flexible, transoral; diagnostic, including collection of specimen(s) by brushing or washing, when performed (separate procedure) Diagnosis Code(s): --- Professional --- D50.9, Iron deficiency anemia, unspecified CPT copyright 2021 [employer]. All rights reserved. The codes documented in this report are preliminary and upon subway train operator review may be revised to meet current compliance requirements. Michoacano Gil MD 01/20/2025 8:17:44 AM This report has been signed electronically. Number of Addenda: 0 Note Initiated On: 01/20/2025 7:47 AM
--- NOTE | 2025-01-20 08:19 | OP.COLON_ITS ---
Patient Name: Samuel Jackson (rob) Procedure Date: 01/20/2025 8:02 AM Date of : 1960 Age: 64 Procedure: Colonoscopy Indications: Iron deficiency anemia Providers: Michoacano Gil MD Referring MD: Ximena Gagnon MD Medicines: Propofol per Anesthesia Patient Profile: This is a 64 year old male. Refer to note in patient chart for documentation of history and physical. Last Colonoscopy: several years ago. Complications: No immediate complications. Procedure: Pre-Anesthesia Assessment: - Prior to the procedure, a History and Physical was performed, and patient medications and allergies were reviewed. The patient's tolerance of previous anesthesia was also reviewed. The risks and benefits of the procedure and the sedation options and risks were discussed with the patient. All questions were answered, and informed consent was obtained. Prior Anticoagulants: The patient has taken no anticoagulant or antiplatelet agents. After reviewing the risks and benefits, the patient was deemed in satisfactory condition to undergo the procedure. After I obtained informed consent, the scope was passed under direct vision. Throughout the procedure, the patient's blood pressure, pulse, and oxygen saturations were monitored continuously. The Colonoscope was introduced through the anus and advanced to the cecum, identified by appendiceal orifice and ileocecal valve. The colonoscopy was performed without difficulty. The patient tolerated the procedure well. The quality of the bowel preparation was good. The ileocecal valve, appendiceal orifice, and rectum were photographed. Scope In: 8:02:57 AM Scope Withdrawal Time 0 hours 6 minutes 36 seconds Scope Out: 8:13:01 AM Total Procedure Duration Time 0 hours 10 minutes 4 seconds Findings: The entire examined colon appeared normal on direct and retroflexion views. Impression: - The entire examined colon is normal on direct and retroflexion views. - No specimens collected. Recommendation: - Discharge patient to home. - Resume previous diet. - Continue present medications. - Repeat colonoscopy in 10 years for screening purposes. Procedure Code(s): --- Professional --- 59350, Colonoscopy, flexible; diagnostic, including collection of specimen(s) by brushing or washing, when performed (separate procedure) Diagnosis Code(s): --- Professional --- D50.9, Iron deficiency anemia, unspecified CPT copyright 2021 [employer]. All rights reserved. The codes documented in this report are preliminary and upon director of tax services review may be revised to meet current compliance requirements. Michoacano Gil MD 01/20/2025 8:19:04 AM This report has been signed electronically. Number of Addenda: 0 Note Initiated On: 01/20/2025 8:02 AM
--- NOTE | 2025-01-20 08:19 | OP.CCLET_ITS ---
01/20/2025 Ximena Gagnon MD [address] [place] [address] [place] [address] Re : Colonoscopy procedure for Samuel Jackson (rob) Dear Dr. Gagnon This procedure was performed on Monday, January 20, 2025. My impressions and recommendations are as follows: Impressions : - The entire examined colon is normal on direct and retroflexion views. - No specimens collected. Recommendations : - Discharge patient to home. - Resume previous diet. - Continue present medications. - Repeat colonoscopy in 10 years for screening purposes. My findings are described in the full procedure note, which is enclosed. If I can be of further assistance, please feel free to contact me at Doctor phone number(s): , Work: . Sincerely, Michoacano Gil MD 01/20/2025 8:19:04 AM This report has been signed electronically.
--- NOTE | 2025-01-20 08:23 | PCM.POST.ANE ---
Anesthesia: Postop Eval I Current Vital Signs Temperature: 97.1 F Pulse Rate: 67 Blood Pressure: 93/60 Respiratory Rate: 16 Pulse Ox: 97 Oxygen Delivery Method: Room Air Assessment Airway patent: Yes Spontaneous unlabored respirations: Yes Mental status: Awake and Calm nausea: No Vomiting: No Anesthesia Complication: No Fluid Hydration Crystalloid volume administer (ml): 800 Total IV fluid infused: 800 Progress Note Anesthesia document: Postop Eval 1 completed: Yes
--- NOTE | 2025-01-20 10:10 | PCM.POSTANE2 ---
Anesthesia Postop Eval I Sum Postop Eval Completion status Anesthesia document: Postop Eval 1 completed: Yes Anesthesia Postop Eval I Summary Anesthesia Postop Eval I Summary: Anesthesia Postop Eval I: Assessment Summary Airway patent Yes 01/20/25 08:24 [email or web address] Spontaneous unlabored Yes 01/20/25 08:24 [email or web address] respirations Mental status Awake,Calm 01/20/25 08:24 [email or web address] nausea No 01/20/25 08:24 [email or web address] Vomiting No 01/20/25 08:24 [email or web address] Anesthesia Postop Eval I: Fluid Summary Crystalloid volume administer 800 01/20/25 08:24 [email or web address] (ml) Colloids volume administered ( ml) Blood Product volume administered (ml) Total IV fluid infused 800 01/20/25 08:24 [email or web address] Anesthesia Postop Eval I: Summary Notes Anesthesia Complication No 01/20/25 08:24 [email or web address] Anesthesia Complication Comment: Post-operative progress note Anesthesia: Postop Eval II Evaluation Mental status: Awake Pain Level: 0 nausea: No Vomiting: No Complications Anesthesia Complication: No
== END 2025-01-20 08:55 | disposition home or self-care (01) ==
LOC: EN 06:26 → AC 06:27
PROVIDERS: PCP Internal Medicine; Referring Provider Internal Medicine; Visit Provider Surgery
PROC: 0DJD8ZZ Inspection of Lower Intestinal Tract, Via Natural or Artificial Opening Endoscopic (ICD-10-PCS; CPT 45378; principal; 2025-01-20 07:25)
DX: D50.9 Iron deficiency anemia, unspecified (principal); R19.5 Other fecal abnormalities; Z80.0 Family history of malignant neoplasm of digestive organs; I10 Essential (primary) hypertension; E66.9 Obesity, unspecified; E78.5 Hyperlipidemia, unspecified; Z68.32 Body mass index [BMI] 32.0-32.9, adult; Z79.82 Long term (current) use of aspirin; Z79.899 Other long term (current) drug therapy
CPT/HCPCS: 43235; 45378; J2405

== ENCOUNTER → 2025-06-15 | Outpatient (CLI) | payer OTHER, SELFPAY ==
--- NOTE | 2025-06-15 10:36 | MRI_ITS ---
PROCEDURE: UPPER EXT JOINT ONLY(ROUTINE) 06/15/2025 REASON FOR EXAM: PAIN, EVAL CUFF TECHNIQUE: Procedure Code: [id number] Modality: MR Procedure: UPPER EXT JOINT ONLY(ROUTINE) Multiplanar and multisequence images were obtained without IV contrast administration. COMPARISON: COMPARISON: None FINDINGS: Bone Marrow: Subcortical cyst formation is noted deep to the supraspinatus insertion with adjacent marrow edema. There is no occult fracture. AC joint: There is moderate AC joint hypertrophy with a trace effusion. There is a type 3 acromion with impingement configuration. Rotator cuff: There is no significant muscular atrophy. There is a partial- thickness, full width tear of the distal supraspinatus, articular surface, with 1.2 cm retraction of the articular surface component, with an intact bursal surface component. There is severe distal infraspinatus and subscapularis tendinopathy without full-thickness tear or retraction. The teres minor appears intact. Labrum: There is a tear of the labrum from the 10 o'clock-12 o'clock position. There is no paralabral cyst. Biceps tendon: Biceps tendon is present in the biceps tendon groove, with intact anchors. Effusion: There is no significant joint effusion. There is a small amount of fluid in the subacromial subdeltoid bursa with bursitis. MRI/Upper Ext Joint Only(Routine) IMPRESSION: Subcortical cyst formation is noted deep to the supraspinatus insertion with ad jacent marrow edema. There is moderate AC joint hypertrophy with a trace effusion. There is a type 3 acromion with impingement configuration. There is a partial-thickness, full width tear of the distal supraspinatus, emily cular surface, with 1.2 cm retraction of the articular surface component, with an intact bursal surface component. There is severe distal infraspinatus and subscapularis tendinopathy without ful l-thickness tear or retraction. There is a tear of the labrum from the 10 o'clock-12 o'clock position. There is a small amount of fluid in the subacromial subdeltoid bursa with bursi tis. Reading [facility]
== END | disposition home or self-care (01) ==
LOC: MRI 10:33
PROVIDERS: PCP Internal Medicine; Referring Provider Orthopaedic Surgery Sports Medicine; Visit Provider Orthopaedic Surgery Sports Medicine
DX: M25.512 Pain in left shoulder (principal)
CPT/HCPCS: 73221

== ENCOUNTER → 2025-06-29 | Outpatient (CLI) | payer OTHER, SELFPAY ==
[2025-06-29 12:16] LABS: Hematocrit 37.4 % (40-54); Hemoglobin 12.8 g/dL (13.0-16.5); Immature Granulocytes Count 0.020 X10^3/uL (0.0-0.0); Mean Corp Hgb Conc 34.2 g/dL (32-36); Mean Corpuscular Volume 85.2 fL (80-94); Mean Platelet Vol. 9.9 fl (6.2-12.0); NRBC Flagged by Analyzer 0 % (0-5); Platelet Count 330 K/mm3 (150-450); RBC Distribution Width CV 13.0 % (11.6-14.6); RBC Distribution Width SD 40.8 fl (35.1-43.9); Red Blood Count 4.39 M/mm3 (4.6-6.2); White Blood Count 8.6 K/mm3 (4.4-11.0)
--- OUTSIDE RECORDS SUMMARY | 2025-06-29 12:36 | XMS RPT_ITS | CCD ---
Author Organization [facility] CliniSyny Care Team Providers Care Director Of Email Marketing Name Role Phone Anderson HUMAN RESOURCES TALENT MANAGER, HUMAN RESOURCES TALENT MANAGER-C Pillo Primary Care Provider Anderson HUMAN RESOURCES TALENT MANAGER, HUMAN RESOURCES TALENT MANAGER-C Pillo Attending Provider [phone] Dr. Ximena Gagnon Referring Provider [phone] Donna Becerril Attending Provider Unavailable Anderson HUMAN RESOURCES TALENT MANAGER, HUMAN RESOURCES TALENT MANAGER-C Pillo Primary Care Provider Anderson HUMAN RESOURCES TALENT MANAGER, HUMAN RESOURCES TALENT MANAGER-C Pillo Attending Provider [phone] Dr. Ximena Gagnon Referring Provider [phone] Donna Becerril Attending Provider Unavailable Anderson HUMAN RESOURCES TALENT MANAGER, HUMAN RESOURCES TALENT MANAGER-C Pillo Referring Provider [phone] Dr. Michoacano Gil Attending Provider Dr. Michoacano Gil Other Provider Anderson HUMAN RESOURCES TALENT MANAGER, HUMAN RESOURCES TALENT MANAGER-C Pillo Primary Care Provider Anderson HUMAN RESOURCES TALENT MANAGER, HUMAN RESOURCES TALENT MANAGER-C Pillo Referring Provider [phone] Dr. Ximena Gagnon Attending Provider [phone] Anderson HUMAN RESOURCES TALENT MANAGER, HUMAN RESOURCES TALENT MANAGER-C Pillo Primary Care Provider Anderson HUMAN RESOURCES TALENT MANAGER, HUMAN RESOURCES TALENT MANAGER-C Pillo Referring Provider [phone] Dr. Ximena Gagnon Attending Provider [phone] Dr. Ximena Gagnon MD Primary Care Provider Dr. Ximena Gagnon MD Referring Provider [phone] Dr. Toi Mcdowell DO Attending Provider Dr. Ximena Gagnon MD Attending Provider [phone] Julio César BROWN, Dr. López Attending Provider [phone] Zan Casanova MD Attending Provider [phone] Chelsi BROWN, Dr. Bueno Primary Care Provider Chelsi BROWN, Dr. Bueno Referring Provider [phone] Jeffery BROWN, Dr. Ríos Attending Provider Chelsi BROWN, Dr. Bueno Primary Care Provider Chelsi BROWN, Dr. Bueno Attending Provider [phone] Chelsi BROWN, Dr. Bueno Referring Provider [phone] Jeffery BROWN, Dr. Ríos Other Provider Noe Cameron Attending Provider Oleghe, Efewongbe Attending Unavailable Oleghe, Efewongbe Referring Unavailable Oleghe, Efewongbe Primary Care Unavailable Oleghe, Efewongbe Attending Unavailable Oleghe, Efewongbe Primary Care Unavailable Oleghe, Efewongbe Referring Unavailable Oleghe, Efewongbe Referring Unavailable Michoacano Gil Attending Unavailable Oleghe, Efewongbe Primary Care Unavailable Oleghe, Efewongbe Primary Care Unavailable Oleghe, Efewongbe Referring Unavailable Noe Cameron Attending Unavailable Oleghe, Efewongbe Referring Unavailable Michoacano Gil Attending Unavailable Michoacano Gil Consulting Unavailable Oleghe, Efewongbe Primary Care Unavailable Oleghe, Efewongbe Primary Care Unavailable Oleghe, Efewongbe Referring Unavailable Toi Mcdowell Attending Unavailable Oleghe, Efewongbe Primary Care Unavailable Rene Angela Attending Unavailable Oleghe, Efewongbe Primary Care Unavailable Oleghe, Efewongbe Referring Unavailable Zan Casanova Attending Unavailable Oleghe, Efewongbe Referring Unavailable Michoacano Gil Attending Unavailable Oleghe, Efewongbe Primary Care Unavailable Oleghe, Efewongbe Attending Unavailable Oleghe, Efewongbe Referring Unavailable Oleghe, Efewongbe Primary Care Unavailable Oleghe, Efewongbe Attending Unavailable Oleghe, Efewongbe Primary Care Unavailable Oleghe, Efewongbe Referring Unavailable Oleghe, Efewongbe Referring Unavailable Oleghe, Efewongbe Primary Care Unavailable Noe Cameron Attending Unavailable Oleghe, Efewongbe Referring Unavailable Zan Casanova Attending Unavailable Oleghe, Efewongbe Primary Care Unavailable Zan Casanova Referring Unavailable Zan Casanova Attending Unavailable Oleghe, Efewongbe Primary Care Unavailable Oleghe, Efewongbe Primary Care Unavailable Noe Cameron Referring Unavailable Noe Cameron Attending Unavailable Oleghe, Efewongbe Attending Unavailable Oleghe, Efewongbe Primary Care Unavailable Oleghe, Efewongbe Referring Unavailable Allergies Allergy Classification Reported Allergen(s) Allergy Type Date of Onset Reaction(s) Facility (10 sources) Penicillins Allergy to substance 09-05-2022 unknown [facility] (1 source) Penicillins Drug allergy (disorder) 06-01-2025 [facility] Repository Medications Current Medications Medication Drug Class(es) Dates Sig (Normalized) Sig (Original) aspirin 81 mg oral tablet (10 sources) Platelet Aggregation Inhibitor, Nonsteroidal Anti-inflammatory Drug Start: 05-16-2021 take 1 capsule by mouth once daily Aspirin 81 mg capsule Active 81 mg PO DAILY May 16, 2021 12:00am cetirizine hydrochloride 10 mg oral tablet (1 source) Histamine-1 Receptor Antagonist Start: 03-27-2025 take 1 tablet by mouth once daily Cetirizine (Zyrtec) 10 mg tablet Active 10 mg PO daily March 27, 2025 12:00am ibuprofen 200 mg oral capsule (5 sources) Nonsteroidal Anti-inflammatory Drug Start: 08-29-2024 take 1 capsule by mouth every six hours as needed for pain Ibuprofen 200 mg capsule Active 200 mg PO EVERY 6 HOURS as needed for pain August 29, 2024 1:00am indomethacin 50 mg [...] DAILY May 15, 2021 11:00pm Multivitamin tablet (5 sources) Start: 05-16-2021 Multivitamin t ablet Active 1 {tbl} PO DAILY May 16, 2021 12:00am phentermine hydrochloride 37.5 mg oral tablet (14 sources) Sympathomimetic Amine Anorectic Start: 09-08-2024 End: 03-09-2025 Phentermine (Adipex-P) 37.5 mg tablet Active 18.75 mg PO daily 30 0 March 09, 2025 10:30am Obesity with body mass index (BMI) of 30.0 to 39.9 Obesity, unspecified must administer 30 minutes before or 1-2 hours after breakfast Completed/Discontinued Medications Medication Drug Class(es) Dates Sig (Normalized) Sig (Original) allopurinol 100 mg oral tablet (20 sources) Xanthine Oxidase Inhibitor Start: 05-19-2021 End: 08-29-2022 take 1 tablet by mouth once daily Allopurinol 100 mg tablet Discontinued 100 mg PO DAILY 30 July 19, 2021 10:58am September 16, 2021 4:37pm amLODIPine 10 mg oral tablet (20 sources) Dihydropyridine Calcium Channel Eloisa Start: 08-15-2021 End: 08-29-2022 take 1 tablet by mouth once daily Amlodipine 10 mg tablet Discontinued 10 mg PO DAILY 90 3 September 16, 2021 4:37pm August 29, 2022 9:09am atenolol 50 mg oral tablet (20 sources) beta-Adrenergic Eloisa Start: 05-19-2021 End: 08-20-2023 take 1 tablet by mouth once daily Atenolol 50 mg tablet Discontinued 50 mg PO DAILY 90 0 May 22, 2022 10:57am August 29, 2022 9:23am Start: 05-16-2021 End: 05-19-2021 take 1 tablet by mouth once daily Atenolol 25 mg tablet Discontinued 25 mg PO DAILY May 16, 2021 12:00am May 19, 2021 3:11pm fexofenadine hydrochloride 60 mg oral tablet (10 sources) Histamine-1 Receptor Antagonist Start: 09-05-2022 End: 03-27-2025 take 1 tablet by mouth once daily Fexofenadine (Rosalinda Allergy) 60 mg tablet Discontinued 60 mg PO DAILY September 05, 2022 1:00am March 27, 2025 9:02am hydroCHLOROthiazide 12.5 mg / lisinopril 20 mg oral tablet (16 sources) Thiazide Diuretic, Angiotensin Converting Enzyme Inhibitor Start: 12-27-2022 End: 12-17-2024 Lisinopril-Hydroc hlorothiazide 20-12.5 mg tablet Discontinued 1 {tbl} PO DAILY December 26, 2023 12:03pm December 17, 2024 1:09pm Start: 12-27-2022 take 1 tablet by juan manuel th once daily Lisinopril-Hydrochlorothiazide Active 1 TABLET PO DAILY December 27, 2022 12:00am lisinopril 10 mg oral tablet (19 sources) Angiotensin Converting Enzyme Inhibitor Start: 11-21-2022 [...] 10:44am rosuvastatin calcium 20 mg oral tablet (20 sources) HMG-CoA Reductase Inhibitor Start: 12-11-2023 End: [...] Da te Episodic/Chronic Deficiency and other anemia (7 sources) Anemia; Translations: [Anemia, unspecified] 12-15-2024 Episodic Diabetes mellitus without complication (18 sources) Prediabetes; Translations: [Prediabetes] Onset: 03-27-2025 09-06-2023 Episodic Disorders of lipid metabolism (15 sources) Hyperlipidemia; Translations: [Hyperlipidemia, unspecified] 05-16-2021 Chronic Essential hypertension (20 sources) Hypertensive disorder; Translations: [Essential (primary) hypertension] Onset: 12-16-2024 05-16-2021 Chronic Comment on above: CONTROLLED ON MED Gout and other crystal arthropathies (10 sources) Gout; Translations: [Gout, unspecified] 05-16-2021 Chronic Immunizations and screening for infectious disease (20 sources) Contact with or exposure to other viral diseases; Translations: [Exposure to confirmed case of COVID-19] 08-19-2021 Episodic Osteoarthritis (8 sources) Osteoarthritis of right knee joint; Translations: [Unilateral primary osteoarthritis, right knee] Onset: 08-29-2024 03-10-2024 Chronic Other connective tissue disease (10 sources) Foot pain; Translations: [Pain in right foot] 08-15-2021 Episodic Other connective tissue disease (5 sources) Muscle pain; Translations: [Myalgia, unspecified site] 07-10-2024 Episodic Other gastrointestinal disorders (6 sources) Occult blood in stools; Translations: [Other fecal abnormalities] 12-18-2024 Episodic Other non-traumatic joint disorders (5 sources) Knee joint effusion; Translations: [Effusion, unspecified knee] 03-10-2024 Episodic Other non-traumatic joint disorders (11 sources) Shoulder pain; Translations: [Pain in right shoulder] 09-08-2024 Episodic Other non-traumatic joint disorders (2 sources) Pain in right shoulder; Translations: [Pain in right shoulder] Onset: 06-01-2025 Episodic Other non-traumatic joint disorders (2 sources) Pain in left shoulder; Translations: [Pain in left shoulder] Onset: 06-01-2025 Episodic Other nutritional; endocrine; and metabolic disorders (18 sources) Body mass index 30+ - obesity; Translations: [Obesity, unspecified] 09-16-2021 Chronic Other nutritional; endocrine; and metabolic disorders (2 sources) Obesity, unspecified; Translations: [Obesity, unspecified] 09-06-2023 Chronic Residual codes; unclassified (10 sources) History of colonoscopy; Translations: [Other specified postprocedural states] 09-05-2022 Episodic Unclassified (6 sources) Bilateral shoulder pain; Translations: [M25.511 - Pain in right shoulder,M25.512 - Pain in left shoulder] Past or Other Problems Problem Classification Problem Date Documented Da te Episodic/Chronic Deficiency and other anemia (1 source) Anemia, unspecified; Translations: [Anemia, unspecified] Onset: 12-23-2024 Episodic Other connective tissue disease (1 source) Myalgia, unspecified site; Translations: [Myalgia, unspecified site] Onset: 08-11-2024 Episodic Other gastrointestinal disorders (1 source) Other fecal abnormalities; Translations: [Other fecal abnormalities] Onset: 01-26-2025 Episodic Other screening for suspected conditions (not mental disorders or infectious disease) (18 sources) Patient encounter status; Translations: [Encounter for screening for malignant neoplasm of colon] Onset: 09-08-2024 09-05-2022 Episodic Results Test Name Value Interpretation Reference Range Facility Upper Ext Joint Only(Routine )on 06-15-2025 Upper Ext Joint Only(Routine) [facility] Services [address] [place] [address] Upper Ext Joint Only(Routine) MR#: [id number] Acct: [id number] Name: YARED PEPE VICENTARoger CORTES Rep #: [id number] : 1960 M 65 From: Ronen Galvan MD PCP: Dr. Ximena Gagnon MD Status: REG CLI Study: Upper Ext Joint Only(Routine) Date of Exam: 08/15/24 Exam# [id number] Ordering Dr: Zan Casanova MD PROCEDURE: UPPER EXT JOINT ONLY(ROUTINE) 06/15/2025 REASON FOR EXAM: PAIN, EVAL CUFF TECHNIQUE: Procedure Code: MRIUEJ Modality: MR Procedure: UPPER EXT JOINT ONLY(ROUTINE) Multiplanar and multisequence images were obtained without IV contrast administration. COMPARISON: COMPARISON: None FINDINGS: Bone Marrow: Subcortical cyst formation is noted deep to the supraspinatus insertion with adjacent marrow edema. There is no occult fracture. AC joint: There is moderate AC joint hypertrophy with a trace effusion. There is a type 3 acromion with impingement configuration. Rotator cuff: There is no significant muscular atrophy. There is a partial-thickness, full width tear of the distal supraspinatus, articular surface, with 1.2 cm retraction of the articular surface component, with an intact bursal surface component. There is severe distal infraspinatus and subscapularis tendinopathy without full- thickness tear or retraction. The teres minor appears intact. Labrum: There is a tear of the labrum from the 10 o'clock-12 o'clock position. There is no paralabral cyst. Biceps tendon: Biceps tendon is present in the biceps tendon groove, with intact anchors. Effusion: There is no significant joint effusion. There is a small amount of fluid in the subacromial subdeltoid bursa with bursitis. MRI/Upper Ext Joint Only(Routine) IMPRESSION: Subcortical cyst formation is noted deep to the supraspinatus insertion with adjacent marrow edema. There is moderate AC joint hypertrophy with a trace effusion. There is a type 3 acromion with impingement configuration. There is a partial-thickness, full width tear of the distal supraspinatus, articular surface, with 1.2 cm retraction of the articular surface component, with an intact bursal surface component. There is severe distal infraspinatus and subscapularis tendinopathy without full-thickness tear or retraction. There is a tear of the labrum from the 10 o'clock-12 o'clock position. There is a small amount of fluid in the subacromial subdeltoid bursa with bursitis. Reading Location: [facility] CC: Dr. Ximena Gagnon MD; Dr. Zan Casanova MD Bulk Loader: Signed Normal [facility] Orthopedic Visit Reporton Orthopedic Visit Report [facility] [address] [place] [address] OFFICE VISIT Date of Service: 06/01/25 MR#: [id number] Acct: [id number] Name: RENETTAYARED (ROB) Rep #: [id number] : 1960 Provider: Dr. Zan duarte MD Age/Sex: 65/M Location: [facility] Status: Signed with Addenda ADDENDUM by MARY Javier on 06/01/25 at 0934 Office Procedure Documentation entered by Heather Javier MA 06/01/25 09:34: Ortho Injections Injections Yes Subacromial Injection Left Is this a patient provided medication?: No Details: Obtained consent for injection. Under sterile conditions, injected the patients left shoulder with 2cc Kenalog, and 4cc Kenalog. The patient tolerated the injection well without any noted complication. Patient should call our office if redness develops, pain worsens or if they have any concerns. Office Meds Kenalog 40 mg/mL suspension for injection Performing Provider: Zan Casanova MD Performing Location: [facility] Administered by: Zan Casanova MD on 06/01/25 09:31 Dose Route Admin Location Dispensed Lot Number Expiration Date Package NDC NDC [employer]andy Maker 40 mg intra-articular left shoulder 1 mL [id number] 08/06/26 39407-624-56 [id number] [facility] Date cc: * Signed Intake Vital Signs 03/27/25 09:04 Height 5 ft 7 in Weight: 210 lb BMI 32.8 BP 146/82 H Blood Pressure Location Lt brachial Position Sitting Respiration 18 Pulse 54 L Pulse Source Monitor Temp 97.1 F L Temp Source Temporal Pulse Oximetry (%) 93 Oxygen Delivery Method room air Intake Visit Reasons: LEFT SHOULDER Chief Complaint: Left Shoulder Pain Accompanied by: Self Is patient in pain?: Yes Pain scale (1-10): 4 Allergies Penicillins Allergy (Unknown, Verified 06/01/25 08:43) unknown Medications ???Medication ???Instructions ???Recorded ???Confirmed ???Type aspirin 81 mg capsule 81 mg PO DAILY 05/16/21 06/01/25 H istory multivitamin 1 tab PO DAILY 05/16/21 06/01/25 H istory atenolol 50 mg tablet 50 mg PO DAILY #90 tabs 08/20/23 1 Rx ibuprofen 200 mg capsule 200 mg PO Q6H PRN pain 08/29/24 History lisinopril 20 1 tab PO DAILY #90 tabs 12/17/24 1 Rx mg-hydrochlorothiazide 12.5 mg tablet cetirizine 10 mg tablet (Zyrtec) 10 mg PO QDAY 03/27/25 06/01/25 Hi story rosuvastatin 20 mg tablet 20 mg PO DAILY #90 tabs 04/13/25 1 Rx phentermine 37.5 mg tablet 18.75 mg (1/2 x 37.5 mg) PO QDAY 1 06/01/25 Rx (Adipex-P) #30 tabs PFSH Medical History [...] Hyperlipemia Hypertension Gout Surgical History Hx of colonoscopy Hx of knee surgery History of colonoscopy [...] you feel safe at home: Yes HPI LEFT SHOULDER Details: This documentation accurately reflects the service provided and the decisions made by me, Dr. Zan Casanova MD 06/01/25 0818. Part of today???s visit was documented by [ ], acting as scribe. YARED PEPE (ROB) is a 65 year old M here today for FU L shoulder pain, injection was effective, pain returned over the last month. worse at the night, lateral pain, going down the arm. Ortho Exam Left Shoulder Skin/Wound: Yes CDI, No ecchymosis, No erythema and No swelling Testing: Yes Hawkin's, Yes Neer's, No Speed's, No TTP Biceps, No TTP AC Joint, No Drop Arm, Yes AROM-Forward Elevation 0-180, Yes AROM-External Rotation at side 0-60, Yes empty can, No Wal[place], No scapular winging and Yes belly press normal SHOULDER: normal motor and s (more content not included)... Normal [facility] Internal Medicine Office Vis iton 03-27-2025 Internal Medicine Office Visit [facility] [address] [place] [address] OFFICE VISIT Date of Service: 03/27/25 MR#: [id number] Acct: [id number] Name: YARED PEPE SEBASTIAN Rep #: [id number] : 1960 Provider: MARIANA Iniguze Age/Sex: 65/M Location: [facility] Status: Signed Intake Vital Signs 12/12/24 08:13 01/20/25 06:49 03/27/25 09:04 Height 5 ft 8 in 5 ft 7 in 5 ft 7 in Weight: 210 lb BMI 32.8 BP 146/82 H Blood Pressure Location Lt brachial Position Sitting Respiration 18 Pulse 54 L Pulse Source Monitor Temp 97.1 F L Temp Source Temporal Pulse Oximetry (%) 93 Oxygen Delivery Method room air Intake Visit Reasons: 3 M FU Chief Complaint: Follow-up Conservation Worker Required: No Accompanied by: Self Is patient in pain?: No Allergies Penicillins Allergy (Unknown, Verified 03/27/25 09:02) unknown Medications ???Medication ???Instructions ???Recorded ???Confirmed ???Type aspirin 81 mg capsule 81 mg PO DAILY 05/16/21 03/27/25 H istory multivitamin 1 tab PO DAILY 05/16/21 03/27/25 H istory atenolol 50 mg tablet 50 mg PO DAILY #90 tabs 08/20/23 0 03/27/25 Rx ibuprofen 200 mg capsule 200 mg PO Q6H PRN pain 08/29/24 History rosuvastatin 20 mg tablet 20 mg PO DAILY #90 tabs 10/09/24 0 03/27/25 Rx lisinopril 20 1 tab PO DAILY #90 tabs 12/17/24 0 03/27/25 Rx mg-hydrochlorothiazide 12.5 mg tablet phentermine 37.5 mg tablet 18.75 mg (1/2 x 37.5 mg) PO QDAY 0 03/09/25 03/27/25 Rx (Adipex-P) #30 tabs cetirizine 10 mg tablet (Zyrtec) 10 mg PO QDAY 03/27/25 03/27/25 Hi story [facility] Medical History (Updated 03/27/25 @ 09:44 by Noe PEÑA, PA) Positive occult stool blood test Anemia Screening for prostate cancer Bilateral shoulder pain Borderline type 2 diabetes mellitus Alcohol use Non-smoker History of stress test History of deviated nasal septum Encounter for preventative adult health care examination Obesity (BMI 30-39.9) Need for shingles vaccine Bilateral foot pain Health care maintenance Hyperlipemia Hypertension Gout Surgical History (Updated 03/27/25 @ 09:03 by Roma Salomon) Hx of colonoscopy Hx of knee surgery History of colonoscopy [...] Follow-up Details: YARED PEPE (ROB), is a 65 M who presents to the office today for f/u on his last appt. PAtient had to cancel his most recent appt with his PCP. Patient has been on Adipex for weight loss since September. He does check his BP at home once in a while. He states that typically it is good running around 130s systolically and 80s diastolically. He does consume caffeine via [employer]. He drinks several bottles / cans a day. He is not a great water drinker He does not get regular exercise. He states that he does try and stay busy. Has been several years since he has seen eye doctor. Has had lasik surgery x 2 He does see dentis twice a year He recently had endoscopy and colonoscopy both of where were good. ROS Const Constitutional: No body ache, excessive [...] Musculoskeletal: No abnormal gait, joint pain, back gabi (more content not included)... Normal [facility] Colonoscopy Reporton 025 Colonoscopy Report [facility] Medical Records Department [address] [place] [address] Colonoscopy Report MR#: [id number] Acct: [id number] Name: YARED PEPE (ROB) Rep #: [id number] : 1960 64 From: Michoacano Gil MD PCP: Dr. Ximena Gagnon MD Status:REG [facility] Patient Name: Yared Pepe (rob) Procedure Date: 01/20/2025 8:02 AM Date of : 1960 Age: 64 Procedure: Colonoscopy Indications: Iron deficiency anemia Providers: Michoacano Gil MD Referring MD: Ximena Gagnon MD Medicines: Propofol per Anesthesia Patient Profile: This is a 64 year old male. Refer to note in patient chart for documentation of history and physical. Last Colonoscopy: several years ago. Complications: No immediate complications. Procedure: Pre-Anesthesia Assessment: - Prior to the procedure, a History and Physical was performed, and patient medications and allergies were reviewed. The patient's tolerance of previous anesthesia was also reviewed. The risks and benefits of the procedure and the sedation options and risks were discussed with the patient. All questions were answered, and informed consent was obtained. Prior Anticoagulants: The patient has taken no anticoagulant or antiplatelet agents. After reviewing the risks and benefits, the patient was deemed in satisfactory condition to undergo the procedure. After I obtained informed consent, the scope was passed under direct vision. Throughout the procedure, the patient's blood pressure, pulse, and oxygen saturations were monitored continuously. The Colonoscope was introduced through the anus and advanced to the cecum, identified by appendiceal orifice and ileocecal valve. The colonoscopy was performed without difficulty. The patient tolerated the procedure well. The quality of the bowel preparation was good. The ileocecal valve, appendiceal orifice, and rectum were photographed. Scope In: 8:02:57 AM Scope Withdrawal Time 0 hours 6 minutes 36 seconds Scope Out: 8:13:01 AM Total Procedure Duration Time 0 hours 10 minutes 4 seconds Findings: The entire examined colon appeared normal on direct and retroflexion views. Impression: - The entire examined colon is normal on direct and retroflexion views. - No specimens collected. Recommendation: - Discharge patient to home. - Resume previous diet. - Continue present medications. - Repeat colonoscopy in 10 years for screening purposes. Procedure Code(s): --- Professional --- 25108, Colonoscopy, flexible; diagnostic, including collection of specimen(s) by brushing or washing, when performed (separate procedure) Diagnosis Code(s): --- Professional --- D50.9, Iron deficiency anemia, unspecified CPT copyright 2021 [employer]. All rights reserved. The codes documented in this report are preliminary and upon cpc coder review may be revised to meet current compliance requirements. Michoacano Gil MD 01/20/2025 8:19:04 AM This report has been signed electronically. Number of Addenda: 0 Note Initiated On: 01/20/2025 8:02 AM 01/20/25818 Date Michoacano Gil MD Cosigner Signature: Date (if indicated) CC: Dr. Michoacano Gil MD; Dr. Ximena Gagnon MD Date Dictated: 01/20/25801 Date Transcribed: Bulk Loader: ELYSIA Signed Normal [facility] EGD Reporton 01-20-2025 EGD Report [facility] Medical Records Department [address] [place] [address] EGD Report MR#: [id number] Acct: [id number] Name: YARED PEPE (ROB) Rep #: [id number] : 1960 64 From: Michoacano Gil MD PCP: Dr. Ximena Gagnon MD Status:REG [facility] Patient Name: Yared Pepe (rob) Procedure Date: 01/20/2025 7:47 AM Date of : 1960 Age: 64 Procedure: Upper GI endoscopy Indications: Iron deficiency anemia Providers: Michoacano Gil MD Referring MD: Ximena Gagnon MD Medicines: Propofol per Anesthesia Patient Profile: This is a 64 year old male. Refer to note in patient chart for documentation of history and physical. Complications: No immediate complications. Procedure: Pre-Anesthesia Assessment: - Prior to the procedure, a History and Physical was performed, and patient medications and allergies were reviewed. The patient's tolerance of previous anesthesia was also reviewed. The risks and benefits of the procedure and the sedation options and risks were discussed with the patient. All questions were answered, and informed consent was obtained. Prior Anticoagulants: The patient has taken no anticoagulant or antiplatelet agents. After reviewing the risks and benefits, the patient was deemed in satisfactory condition to undergo the procedure. After obtaining informed consent, the endoscope was passed under direct vision. Throughout the procedure, the patient's blood pressure, pulse, and oxygen saturations were monitored continuously. The Colonoscope was introduced through the mouth, and advanced to the fourth part of duodenum. The upper GI endoscopy was accomplished without difficulty. The patient tolerated the procedure well. Scope In: 7:59:53 AM Scope Out: 8:01:55 AM Total Procedure Duration Time 0 hours 2 minutes 2 seconds Findings: The esophagus was normal. The stomach was normal. The examined duodenum was normal. Impression: - Normal esophagus. - Normal stomach. - Normal examined duodenum. - No specimens collected. Recommendation: - Discharge patient to home. - Resume previous diet. - Continue present medications. Procedure Code(s): --- Professional --- 45853, Esophagogastroduodenosc opy, flexible, transoral; diagnostic, including collection of specimen(s) by brushing or washing, when performed (separate procedure) Diagnosis Code(s): --- Professional --- D50.9, Iron deficiency anemia, unspecified CPT copyright 2021 [employer]. All rights reserved. The codes documented in this report are preliminary and upon cpc coder review may be revised to meet current compliance requirements. Michoacano Gil MD 01/20/2025 8:17:44 AM This report has been signed electronically. Number of Addenda: 0 Note Initiated On: 01/20/2025 7:47 AM 01/20/25 0817 Date Michoacano Gil MD Cosigner Signature: Date (if indicated) CC: Dr. Michoacano Gil MD; Dr. Ximena Gagnon MD Date Dictated: 01/20/25 0747 Date Transcribed: Bulk Loader: ELYSIA Signed Normal [facility] MR/POSTOP.ANEon 01-20-2025 MR[facility]OP[facility] Medical Records Department [address] [place] [address] Anesthesia Postop Eval I 01/20/25 0823 MR#: [id number] Acct: [id number] Name: YARED PEPE (ROB) Rep #: [id number] : 1960 64 From: Elmer Andres PCP: Dr. Ximena Gagnon MD Status:[facility] Y Race: C Location: [place] [address] Anesthesia: Postop Eval I Current Vital Signs Temperature: 97.1 F Pulse Rate: 67 Blood Pressure: 93/60 Respiratory Rate: 16 Pulse Ox: 97 Oxygen Delivery Method: Room Air Assessment Airway patent: Yes Spontaneous unlabored respirations: Yes Mental status: Awake and Calm nausea: No Vomiting: No Anesthesia Complication: No Fluid Hydration Crystalloid volume administer (ml): 800 Total IV fluid infused: 800 Progress Note Anesthesia document: Postop Eval 1 completed: Yes 01/20/25 0824 Date Elmer Bucio Signature: Date CC: Signed Normal [facility] MR/DFWTAPKP6iu 01-20-2025 MR/POSTOPAN2 [facility] Medical Records Department [address] [place] [address] Anesthesia Postop Eval II 01/20/25 1010 MR#: [id number] Acct: [id number] Name: YARED PEPE (ROB) Rep #: [id number] : 1960 64 From: Conrado Quiroz MD PCP: Dr. Ximena Gagnon MD Status:[facility] Y Race: C Location: [place] Anesthesia Postop Eval I Sum Postop Eval Completion status Anesthesia document: Postop Eval 1 completed: Yes Anesthesia Postop Eval I Summary Anesthesia Postop Eval I Summary: Anesthesia Postop Eval I: Assessment Summary Airway patent Yes 01/20/25 08:24 [email or web address] Spontaneous unlabored Yes 01/20/25 08:24 [email or web address] respirations Mental status Awake,Calm 01/20/25 08:24 [email or web address] nausea No 01/20/25 08:24 [email or web address] Vomiting No 01/20/25 08:24 [email or web address] Anesthesia Postop Eval I: Fluid Summary Crystalloid volume administer 800 01/20/25 08:24 [email or web address] (ml) Colloids volume administered ( ml) Blood Product volume administered (ml) Total IV fluid infused 800 01/20/25 08:24 [email or web address] Anesthesia Postop Eval I: Summary Notes Anesthesia Complication No 01/20/25 08:24 [email or web address] Anesthesia Complication Comment: Post-operative progress note Anesthesia: Postop Eval II Evaluation Mental status: Awake Pain Level: 0 nausea: No Vomiting: No Complications Anesthesia Complication: No 01/20/25 1010 Date Conrado Quiroz MD Cosigner Signature: Date CC: Signed Normal [facility] Surgery Visit Reporton 12-31 Surgery Visit Report [facility] [address] [place] [address]. [address] [place] [address] OFFICE VISIT Date of Service: 12/31/24 MR#: [id number] Acct: [id number] Name: YARED PEPE (ROB) Rep #: [id number] : 1960 Provider: Dr. 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 Normal [facility] Stool Occult Blood iFOBon STOB Comments: x3 Normal Reference Range = Negative Immunochemical Fecal Occult Blood (iFOBT) method. Hemoccult Stl Ql IA Limitation: Menstrual bleeding, constipation bleeding, bleeding hemorrhoids, and urinary bleeding conditions may interfere with test. Occult Blood A Positive A OCCULT BLOOD POSITIVE Normal [facility] Comment on above: Performed By: #### M 100.7900 ####[facility] [address] [place], [address] Stool gastrointestinal hemog lobin detection by immunologic methodOrdered By: Ximena Gagnon on 12-18-2024 Lower GI hemoglobin IA Ql (Stl) Positive Abnormal [facility] Ferritinon 12-15-2024 Ferritin [Mass/Vol] 241 ng/mL Normal 37-417 [facility] Comment on above: Performed By: #### L 503.6550, L503.6030 ####[facility] [address] [facility] [address] Iron+Iron Binding Capacityon 12-15-2024 Iron [Mass/Vol] 99 ug/dL Normal 65-175 [facility] Comment on above: Performed By: #### L 503.6550, L503.6030 ####[facility] [address] [place], [address] IRON SATURATION 28.0 Normal 9-55 [facility] Comment on above: Performed By: #### L 503.6550, L503.6030 ####[facility] [address] [facility] [address] TIBC 358 ug/dL Normal 250-450 [facility] Comment on above: Performed By: #### L 503.6550, L503.6030 ####[facility] [address] [facility] [address] UIBC 259 ug/dL Normal 228-428 [facility] Comment on above: Performed By: #### L 503.6550, L503.6030 ####[facility] [address] [place], [address] Absolute lymphocyte countOrd ered By: Ximena Gagnon on 12-12-2024 Lymphocytes Auto (Unsp spec) [#/Vol] 2.30 10*3/uL 0.83-4.51 [facility] Absolute neutrophil countOrd ered By: Ximena Gagnon on 12-12-2024 Neutrophils (Bld) [#/Vol] 5.5 10*3/uL 2.0-7.7 [facility] Anion gap in Serum or Plasma Ordered By: joserhondajosephine Gagnon on 12-12-2024 Anion gap [Moles/Vol] 9 mmol/L 5-15 [facility] Automated lymphocyte count a s percentage of total leukocytesOrdered By: Emoryjosephine Xaviermaynor on 12-12-2024 Lymphocytes/100 WBC Auto (Unsp spec) 25.1 % 19-41 [facility] BUN/creatinine ratioOrdered By: maxim Parkmaynor on 12-12-2024 Urea nitrogen/Creatinine [Mass ratio] 15.1 mg/mg 10-20 [facility] Basophil percentageOrdered B y: Ximena Gagnon on 12-12-2024 Basophils/100 WBC (Bld) 1.0 % 0-1 [facility] Bilirubin, totalOrdered By: Emoryjosephine Xaviermaynor on 12-12-2024 Bilirubin [Mass/Vol] 0.40 mg/dL 0.00-1.30 [facility] CBC W/Diff, Automatedon Absolute Lymph 2.30 X10 3/uL Normal 0.83-4.51 [facility] Comment on above: Performed By: #### L 500.4050, L100.0100 ####[facility] [address] [place], [address] Absolute Neut 5.5 X10 3/uL Normal 2.0-7.7 [facility] Comment on above: Performed By: #### L 500.4050, L100.0100 ####[facility] [address] [place], [address] Basophils/100 WBC (Bld) 1.0 % Normal 0-1 [facility] Comment on above: Performed By: #### L 500.4050, L100.0100 ####[facility] [address] [place], [address] Eosinophils/100 WBC (Bld) 3.9 % Normal 0-5 [facility] Comment on above: Performed By: #### L 500.4050, L100.0100 ####[facility] [address] [place], [address] Erythrocyte distribution width (RBC) [Ratio] 13.9 % Normal 11.6-14.6 [facility] Comment on above: Performed By: #### L 500.4050, L100.0100 ####[facility] [address] [place], [address] Hematocrit (Bld) [Volume fraction] 38.3 % Low 40-54 [facility] Comment on above: Performed By: #### L 500.4050, L100.0100 ####[facility] [address] [place], [address] Hemoglobin (Bld) [Mass/Vol] 12.6 g/dL Low 13.0-16.5 [facility] Comment on above: Performed By: #### L 500.4050, L100.0100 ####[facility] [address] [place], [address] IG% 0.200 Normal 0.0-0.9 [facility] Comment on above: Result Comment: IG% - Immature Granulocytes (promyelocytes, myelocytes and metamyelocytes) > 1% indicates that a LEFT SHIFT is Present. Performed By: #### L 500.4050, L100.0100 ####[facility] [address] [place], [address] Lymphocytes/100 WBC (Bld) 25.1 % Normal 19-41 [facility] Comment on above: Performed By: #### L 500.4050, L100.0100 ####[facility] [address] [place], [address] MCH (RBC) [Entitic mass] 29.0 pg Normal 27.0-32.0 [facility] Comment on above: Performed By: #### L 500.4050, L100.0100 ####[facility] [address] [place], [address] MCHC (RBC) [Mass/Vol] 32.9 g/dL Normal 32-36 [facility] Comment on above: Performed By: #### L 500.4050, L100.0100 ####[facility] [address] [place], [address] MCV (RBC) [Entitic vol] 88.0 fL Normal 80-94 [facility] Comment on above: Performed By: #### L 500.4050, L100.0100 ####[facility] [address] [place], [address] Monocytes/100 WBC (Bld) 10.0 % Normal 0-10 [facility] Comment on above: Performed By: #### L 500.4050, L100.0100 ####[facility] [address] [place], [address] Neutrophils/100 WBC (Bld) 59.8 % Normal 47-70 [facility] Comment on above: Performed By: #### L 500.4050, L100.0100 ####[facility] [address] [place], [address] Nucleated RBC (Bld) [#/Vol] 0 10*3/uL Normal 0-5 [facility] Comment on above: Performed By: #### L 500.4050, L100.0100 ####[facility] [address] [place], [address] Platelet mean volume (Bld) [Entitic vol] 10.9 fL Normal 6.2-12.0 [facility] Comment on above: Performed By: #### L 500.4050, L100.0100 ####[facility] [address] [place], [address] Platelets (Bld) [#/Vol] 355 10*3/uL Normal 150-450 [facility] Comment on above: Performed By: #### L 500.4050, L100.0100 ####[facility] [address] [place], [address] RBC (Bld) [#/Vol] 4.35 10*6/uL Low 4.6-6.2 [facility] Comment on above: Performed By: #### L 500.4050, L100.0100 ####[facility] [address] [place], [address] RDW SD 44.6 fl High 35.1-43.9 [facility] Comment on above: Performed By: #### L 500.4050, L100.0100 ####[facility] [address] [place], [address] WBC (Bld) [#/Vol] 9.2 10*3/uL Normal 4.4-11.0 [facility] Comment on above: Performed By: #### L 500.4050, L100.0100 ####[facility] [address] [place], [address] Carbon dioxide, total [Moles /volume] in Central venous bloodOrdered By: Ximena Gagnon on 12-12-2024 CO2 [Moles/Vol] 24.2 mmol/L 21.0-32.0 [facility] Chloride assayOrdered By: Reyes Gagnon on 12-12-2024 Chloride [Moles/Vol] 101 mmol/L 98-108 [facility] Comprehensive Metabolic Prof ilon 12-12-2024 Albumin [Mass/Vol] 4.3 g/dL Normal 3.4-4.8 [facility] Comment on above: Performed By: #### L 500.4050, L100.0100 ####[facility] [address] [place], [address] Albumin/Globulin [Mass ratio] 1.5 {ratio} Normal 0.9-2.4 [facility] Comment on above: Performed By: #### L 500.4050, L100.0100 ####[facility] [address] [place], [address] ALK PHOS 62 U/L Normal 40-129 [facility] Comment on above: Performed By: #### L 500.4050, L100.0100 ####[facility] [address] [place], [address] ALT [Catalytic activity/Vol] 18 U/L Normal <=46 [facility] Comment on above: Performed By: #### L 500.4050, L100.0100 ####[facility] [address] [place], [address] AST [Catalytic activity/Vol] 24 U/L Normal <=37 [facility] Comment on above: Performed By: #### L 500.4050, L100.0100 ####[facility] [address] [place], [address] Bilirubin [Mass/Vol] 0.40 mg/dL Normal 0.00-1.30 [facility] Comment on above: Performed By: #### L 500.4050, L100.0100 ####[facility] [address] [place], [address] BUN/CRE 15.1 RATIO Normal 10-20 [facility] Comment on above: Performed By: #### L 500.4050, L100.0100 ####[facility] [address] [place], [address] Calcium [Mass/Vol] 10.1 mg/dL Normal 7.6-11.0 [facility] Comment on above: Performed By: #### L 500.4050, L100.0100 ####[facility] [address] [place], [address] Chloride [Moles/Vol] 101 mmol/L Normal 98-108 [facility] Comment on above: Performed By: #### L 500.4050, L100.0100 ####[facility] [address] [place], [address] CO2 [Moles/Vol] 24.2 mmol/L Normal 21.0-32.0 [facility] Comment on above: Performed By: #### L 500.4050, L100.0100 ####[facility] [address] [place], [address] Creatinine [Mass/Vol] 1.06 mg/dL Normal 0.70-1.20 [facility] Comment on above: Performed By: #### L 500.4050, L100.0100 ####[facility] [address] [place], [address] GAP 9 Normal 5-15 [facility] Comment on above: Performed By: #### L 500.4050, L100.0100 ####[facility] [address] [place], [address] GFR/1.73 sq M.predicted among non-blacks MDRD (S/P/Bld) [Vol rate/Area] 79 mL/min/{1.73_m2} Normal >60 [facility] Comment on above: Result Comment: mL/m in/1.73m2 CKD-EPI Creatinine Equation (2020) Performed By: #### L 500.4050, L100.0100 ####[facility] [address] [place], [address] Globulin (S) [Mass/Vol] 2.8 g/dL Normal 2.2-4.2 [facility] Comment on above: Performed By: #### L 500.4050, L100.0100 ####[facility] [address] [place], [address] Glucose [Mass/Vol] 110 mg/dL High 70-99 [facility] Comment on above: Performed By: #### L 500.4050, L100.0100 ####[facility] [address] [place], [address] Potassium [Moles/Vol] 5.0 mmol/L Normal 3.3-5.1 [facility] Comment on above: Performed By: #### L 500.4050, L100.0100 ####[facility] [address] [place], [address] Sodium [Moles/Vol] 134 mmol/L Normal 133-145 [facility] Comment on above: Performed By: #### L 500.4050, L100.0100 ####[facility] [address] [place], [address] T PROT 7.2 g/dL Normal 5.9-8.4 [facility] Comment on above: Performed By: #### L 500.4050, L100.0100 ####[facility] [address] [place], [address] Urea nitrogen [Mass/Vol] 16 mg/dL Normal 4-19 [facility] Comment on above: Performed By: #### L 500.4050, L100.0100 ####[facility] [address] [place], [address] Eosinophil percentageOrdered By: Ximena Gagnon on 12-12-2024 Eosinophils/100 WBC (Bld) 3.9 % 0-5 [facility] Erythrocyte distribution wid th ratioOrdered By: Ximena Gagnon on 12-12-2024 Erythrocyte distribution width (RBC) [Ratio] 13.9 % 11.6-14.6 [facility] Erythrocyte distribution wid th standard deviationOrdered By: Ximena Gagnon on 12-12-2024 Erythrocyte distribution width (RBC) [Ratio] 44.6 fl High 35.1-43.9 [facility] Glomerular filtration rate ( GFR) estimation/1.73 sq m using serum, plasma, or whole bOrdered By: maxim Gagnon on 12-12-2024 GFR/1.73 sq M.predicted among non-blacks MDRD (S/P/Bld) [Vol rate/Area] 79 mL/min/{1.73_m2} >60 [facility] Comment on above: mL/min/1.73m2 CKD-EP I Creatinine Equation (2020) Hematocrit Auto (Bld) [Volum e fraction]Ordered By: Ximena Gagnon on 12-12-2024 Hematocrit (Bld) [Volume fraction] 38.3 % Low 40-54 [facility] Hemoglobin measurementOrdere d By: Ximena Gagnon on 12-12-2024 Hemoglobin (Bld) [Mass/Vol] 12.6 g/dL Low 13.0-16.5 [facility] Immature granulocytes/100 WB C Auto (Bld)Ordered By: Ximena Gagnon on 12-12-2024 Immature granulocytes/100 WBC (Bld) 0.200 % 0.0-0.9 [facility] Comment on above: IG% - Immature Granu locytes (promyelocytes, myelocytes and metamyelocytes) > 1% indicates that a LEFT SHIFT is Present. Internal Medicine Office Vis ashanti 12-12-2024 Internal Medicine Office Visit [facility] [place] [address] OFFICE VISIT Date of Service: 12/12/24 MR#: [id number] Acct: [id number] Name: YARED PEPE (ROB) Rep #: [id number] : 1960 Provider: Dr. Ximena fisher MD Age/Sex: 64/M Location: [facility] Status: Signed Intake Vital Signs 09/08/24 08:02 [...] Reasons: 3 M FU Chief Complaint: Follow-up Conservation Worker Required: No Accompanied by: Self Is patient in pain?: No Allergies Penicillins Allergy (Unknown, Verified 12/12/24 08:11) unknown Medications ???Medication ???Instructions ???Recorded ???Confirmed ???Type aspirin 81 mg capsule 81 mg PO DAILY 05/16/21 12/12/24 H istory multivitamin 1 tab PO DAILY [...] spouse current occupational status: employed current occupation: [employer] pets and animals: No Smoking Status: [...] stiffness, t (more content not included)... Normal [facility] Iron measurement (mass/mass) Ordered By: Ximena Gagnon on 12-12-2024 Iron (Unsp spec) [Mass/Mass] 99 ug/dL 65-175 [facility] Laboratory - Chemistry and C hemistry - challengeOrdered By: Ximena Gagnon on 12-12-2024 AST [Catalytic activity/Vol] 24 U/L <38 [facility] MCV (mean corpuscular volume ) determinationOrdered By: Ximena Gagnon on 12-12-2024 MCV (RBC) [Entitic vol] 88.0 fL 80-94 [facility] Mean corpuscular hemoglobin (MCH) determinationOrdered By: Ximena Gagnon on 12-12-2024 MCH (RBC) [Entitic mass] 29.0 pg 27.0-32.0 [facility] Mean corpuscular hemoglobin concentration (MCHC) determinationOrdered By: Ximena Gagnon on 12-12-2024 MCHC (RBC) [Mass/Vol] 32.9 g/dL 32-36 [facility] Mean platelet volume determi nationOrdered By: Ximena Gagnon on 12-12-2024 Platelet mean volume (Bld) [Entitic vol] 10.9 fL 6.2-12.0 [facility] Monocyte percentageOrdered B y: Ximena Gagnon on 12-12-2024 Monocytes/100 WBC (Bld) 10.0 % 0-10 [facility] Neutrophil percentageOrdered By: Ximena Gagnon on 12-12-2024 Neutrophils/100 WBC (Bld) 59.8 % 47-70 [facility] No Panel InformationOrdered By: Ximena Gagnon on 12-12-2024 Unsaturated Iron Binding Capacity 259 ug/dL 228-428 [facility] Nucleated red blood cell per centageOrdered By: Ximena Gagnon on 12-12-2024 Nucleated RBC/100 WBC (Bld) [Ratio] 0 % 0-5 [facility] Platelet countOrdered By: Reyes Gagnon on 12-12-2024 Platelets (Bld) [#/Vol] 355 10*3/uL 150-450 [facility] Potassium measurement (mass/ volume)Ordered By: Ximena Gagnon on 12-12-2024 Potassium (Unsp spec) [Mass/Vol] 5.0 mmol/L 3.3-5.1 [facility] RBC Auto (Bld) [#/Vol]Ordere d By: Ximena Gagnon on 12-12-2024 RBC (Bld) [#/Vol] 4.35 10*6/uL Low 4.6-6.2 [facility] Serum creatinine measurement (mass/volume)Ordered By: Ximena Gagnon on 12-12-2024 Creatinine [Mass/Vol] 1.06 mg/dL 0.70-1.20 [facility] Serum globulin measurementOr dered By: Ximena Gagnon on 12-12-2024 Globulin (S) [Mass/Vol] 2.8 g/dL 2.2-4.2 [facility] Serum glucose measurement (m ass/volume)Ordered By: Ximena Gagnon on 12-12-2024 Glucose [Mass/Vol] 110 mg/dL High 70-99 [facility] Serum or plasma alanine arriaga otransferase (ALT) measurementOrdered By: Ximena Gagnon on 12-12-2024 ALT [Catalytic activity/Vol] 18 U/L <47 [facility] Serum or plasma albumin mary urement (mass/volume)Ordered By: Ximena Gagnon on 12-12-2024 Albumin [Mass/Vol] 4.3 g/dL 3.4-4.8 [facility] Serum or plasma albumin/glob ulin mass ratioOrdered By: Ximena Gagnon on 12-12-2024 Albumin/Globulin [Mass ratio] 1.5 {ratio} 0.9-2.4 [facility] Serum or plasma alkaline faustino sphatase measurementOrdered By: Ximena Gagnon on 12-12-2024 ALP [Catalytic activity/Vol] 62 U/L 40-129 [facility] Serum or plasma calcium mary urement (mass/volume)Ordered By: Ximena Gagnon on 12-12-2024 Calcium [Mass/Vol] 10.1 mg/dL 7.6-11.0 [facility] Serum or plasma ferritin frederick surement (mass/volume)Ordered By: Ximena Gagnon on 12-12-2024 Ferritin [Mass/Vol] 241 ng/mL 37-417 [facility] Serum or plasma iron saturat ion measurement (mass fraction)Ordered By: Ximena Gagnon on 12-12-2024 Iron saturation [Mass fraction] 28.0 % 9-55 [facility] Serum or plasma urea nitroge n measurement (mass/volume)Ordered By: Ximena Gagnon on 12-12-2024 Urea nitrogen [Mass/Vol] 16 mg/dL 4-19 [facility] Sodium levelOrdered By: jose Gagnon on 12-12-2024 Sodium [Moles/Vol] 134 mmol/L 133-145 [facility] Total proteinOrdered By: James Gagnon on 12-12-2024 Protein [Mass/Vol] 7.2 g/dL 5.9-8.4 [facility] White blood cell (WBC) count Ordered By: Ximena Gagnon on 12-12-2024 WBC (Bld) [#/Vol] 9.2 10*3/uL 4.4-11.0 [facility] Orthopedic Visit Reporton Orthopedic Visit Report [facility] [address] [place] [id number] OFFICE VISIT Date of Service: 09/12/24 MR#: [id number] Acct: [id number] Name: YARED PEPE (ROB) Rep #: [id number] : 1960 Provider: Dr. Zan duarte MD Age/Sex: 64/M Location: [facility] Status: Signed with Addenda ADDENDUM by Lucila [...] Performing Provider: Zan Casanova MD Performing Location: [facility] Administered by: Zan Casanova MD on 09/12/24 08:24 Dose Route Admin Location Dispensed Lot Number Expiration Date NDC Man ufacturer 160 mg intra-articular Bilateral Shoulder 4 mL [id number] 12/04/25 1221-7618- 28 [facility] Date cc: * Signed Intake Vital [...] History phentermine 37.5 mg tablet 18.75 mg (08/07 x 37.5 mg) PO QDAY 0 09/08/24 [...] the decisions made by me, Dr. Zan Casanova MD 09/12/24 0753. Part of today???s visit was documented by [ ], acting as scribe. YARED PEPE (ROB) is a 64 year old M here today for bilateral shoulder pain. 2 months. lateral side. right one side is worse, RHD. no trauma. worse with lifting buckets of feed or lifting above shoulder. worse at night. better with propping. tx - nsaids. no PT. Supplemental Info [facility] [address] [place] [address] Shoulder min 2 Views MR#: [id number] Acct: [id number] Name: YARED PEPE (ROB) Rep #: [id number] : 1960 M 64 From: Pillo Santa MD PCP: Dr. Ximena Gagnon MD (more content not included)... Normal [facility] Absolute lymphocyte countOrd ered By: Ximena Gagnon on 09-08-2024 Lymphocytes Auto (Unsp spec) [#/Vol] 2.41 10*3/uL 0.83-4.51 [facility] Absolute neutrophil countOrd ered By: [place]osephine Gagnon on 09-08-2024 Neutrophils (Bld) [#/Vol] 6.3 10*3/uL 2.0-7.7 [facility] Albumin to globulin ratioOrd ered By: maxim Gagnon on 09-08-2024 Albumin/Globulin [Mass ratio] 1.0 {ratio} 0.9-2.4 [facility] Automated lymphocyte count a s percentage of total leukocytesOrdered By: Ximena Gagnon on 09-08-2024 Lymphocytes/100 WBC Auto (Unsp spec) 23.5 % 19-41 [facility] Basophil percentageOrdered B y: Ximena Gagnon on 09-08-2024 Basophils/100 WBC (Bld) 0.8 % 0-1 [facility] Bilirubin, totalOrdered By: Ximena Gagnon on 09-08-2024 Bilirubin [Mass/Vol] 0.50 mg/dL 0.20-1.00 [facility] Comment on above: For patients on eltr ombopag therapy, use of [employer] TBIL is not recommended. Blood urea nitrogen (BUN)/cr eatinine ratioOrdered By: Ximena Gagnon on 09-08-2024 Urea nitrogen/Creatinine [Mass ratio] 15.1 mg/mg 10-20 [facility] CBC W/Diff, Automatedon 02-0 -2024 Absolute Lymph 2.41 X10 3/uL Normal 0.83-4.51 [facility] Comment on above: Performed By: #### L 500.4050, L501.9910, L100.0100, L501.9985 ####[facility] [address] [place], [address] Absolute Neut 6.3 X10 3/uL Normal 2.0-7.7 [facility] Comment on above: Performed By: #### L 500.4050, L501.9910, L100.0100, L501.9985 ####[facility] [address] [place], [address] Basophils/100 WBC (Bld) 0.8 % Normal 0-1 [facility] Comment on above: Performed By: #### L 500.4050, L501.9910, L100.0100, L501.9985 ####[facility] [address] [place], [address] Eosinophils/100 WBC (Bld) 5.1 % High 0-5 [facility] Comment on above: Performed By: #### L 500.4050, L501.9910, L100.0100, L501.9985 ####[facility] [address] [place], [address] Erythrocyte distribution width (RBC) [Ratio] 13.9 % Normal 11.6-14.6 [facility] Comment on above: Performed By: #### L 500.4050, L501.9910, L100.0100, L501.9985 ####[facility] [address] [place], [address] Hematocrit (Bld) [Volume fraction] 38.8 % Low 40-54 [facility] Comment on above: Performed By: #### L 500.4050, L501.9910, L100.0100, L501.9985 ####[facility] [address] [place], [address] Hemoglobin (Bld) [Mass/Vol] 12.5 g/dL Low 13.0-16.5 [facility] Comment on above: Performed By: #### L 500.4050, L501.9910, L100.0100, L501.9985 ####[facility] [address] [place], [address] IG% 0.300 Normal 0.0-0.9 [facility] Comment on above: Result Comment: IG% - Immature Granulocytes (promyelocytes, myelocytes and metamyelocytes) > 1% indicates that a LEFT SHIFT is Present. Performed By: #### L 500.4050, L501.9910, L100.0100, L501.9985 ####[facility] [address] [place], [address] Lymphocytes/100 WBC (Bld) 23.5 % Normal 19-41 [facility] Comment on above: Performed By: #### L 500.4050, L501.9910, L100.0100, L501.9985 ####[facility] [address] [place], [address] MCH (RBC) [Entitic mass] 27.8 pg Normal 27.0-32.0 [facility] Comment on above: Performed By: #### L 500.4050, L501.9910, L100.0100, L501.9985 ####[facility] [address] [place], [address] MCHC (RBC) [Mass/Vol] 32.2 g/dL Normal 32-36 [facility] Comment on above: Performed By: #### L 500.4050, L501.9910, L100.0100, L501.9985 ####[facility] [address] [place], [address] MCV (RBC) [Entitic vol] 86.2 fL Normal 80-94 [facility] Comment on above: Performed By: #### L 500.4050, L501.9910, L100.0100, L501.9985 ####[facility] [address] [place], [address] Monocytes/100 WBC (Bld) 8.9 % Normal 0-10 [facility] Comment on above: Performed By: #### L 500.4050, L501.9910, L100.0100, L501.9985 ####[facility] [address] [place], [address] Neutrophils/100 WBC (Bld) 61.4 % Normal 47-70 [facility] Comment on above: Performed By: #### L 500.4050, L501.9910, L100.0100, L501.9985 ####[facility] [address] [place], [address] Nucleated RBC (Bld) [#/Vol] 0 10*3/uL Normal 0-5 [facility] Comment on above: Performed By: #### L 500.4050, L501.9910, L100.0100, L501.9985 ####[facility] [address] [place], [address] Platelet mean volume (Bld) [Entitic vol] 11.7 fL Normal 6.2-12.0 [facility] Comment on above: Performed By: #### L 500.4050, L501.9910, L100.0100, L501.9985 ####[facility] [address] [place], [address] Platelets (Bld) [#/Vol] 317 10*3/uL Normal 150-450 [facility] Comment on above: Performed By: #### L 500.4050, L501.9910, L100.0100, L501.9985 ####[facility] [address] [place], [address] RBC (Bld) [#/Vol] 4.50 10*6/uL Low 4.6-6.2 [facility] Comment on above: Performed By: #### L 500.4050, L501.9910, L100.0100, L501.9985 ####[facility] [address] [place], [address] RDW SD 43.6 fl Normal 35.1-43.9 [facility] Comment on above: Performed By: #### L 500.4050, L501.9910, L100.0100, L501.9985 ####[facility] [address] [place], [address] WBC (Bld) [#/Vol] 10.3 10*3/uL Normal 4.4-11.0 [facility] Comment on above: Performed By: #### L 500.4050, L501.9910, L100.0100, L501.9985 ####[facility] [address] [place], [address] Carbon dioxide measurementOr dered By: Ximena Gagnon on 09-08-2024 CO2 [Moles/Vol] 26.0 mmol/L 21.0-32.0 [facility] Chloride measurementOrdered By: Ximena Gagnon on 09-08-2024 Chloride [Moles/Vol] 104 mmol/L 98-107 [facility] Comprehensive Metabolic Prof ilon 09-08-2024 Albumin [Mass/Vol] 3.9 g/dL Normal 3.2-5.0 [facility] Comment on above: Performed By: #### L 500.4050, L501.9910, L100.0100, L501.9985 ####[facility] [address] [place], [address] Albumin/Globulin [Mass ratio] 1.0 {ratio} Normal 0.9-2.4 [facility] Comment on above: Performed By: #### L 500.4050, L501.9910, L100.0100, L501.9985 ####[facility] [address] [place], [address] ALK P 58 U/L Normal 45-117 [facility] Comment on above: Performed By: #### L 500.4050, L501.9910, L100.0100, L501.9985 ####[facility] [address] [place], [address] ALT [Catalytic activity/Vol] 26 U/L Normal 16-61 [facility] Comment on above: Performed By: #### L 500.4050, L501.9910, L100.0100, L501.9985 ####[facility] [address] [place], [address] AST [Catalytic activity/Vol] 15 U/L Normal 15-37 [facility] Comment on above: Performed By: #### L 500.4050, L501.9910, L100.0100, L501.9985 ####[facility] [address] [place], [address] Bilirubin [Mass/Vol] 0.50 mg/dL Normal 0.20-1.00 [facility] Comment on above: Result Comment: For patients on eltrombopag therapy, use of [employer] TBIL is not recommended. Performed By: #### L 500.4050, L501.9910, L100.0100, L501.9985 ####[facility] [address] [place], [address] BUN/CRE 15.1 RATIO Normal 10-20 [facility] Comment on above: Performed By: #### L 500.4050, L501.9910, L100.0100, L501.9985 ####[facility] [address] [place], [address] CA,Total 10.1 mg/dL Normal 8.5-10.1 [facility] Comment on above: Performed By: #### L 500.4050, L501.9910, L100.0100, L501.9985 ####[facility] [address] [place], [address] Chloride [Moles/Vol] 104 mmol/L Normal 98-107 [facility] Comment on above: Performed By: #### L 500.4050, L501.9910, L100.0100, L501.9985 ####[facility] [address] [place], [address] CO2 [Moles/Vol] 26.0 mmol/L Normal 21.0-32.0 [facility] Comment on above: Performed By: #### L 500.4050, L501.9910, L100.0100, L501.9985 ####[facility] [address] [place], [address] Creatinine [Mass/Vol] 1.19 mg/dL Normal 0.70-1.30 [facility] Comment on above: Result Comment: The validity of the calculated GFR GFRAA in patients over 70 years has not been determined. Clinical correlation is essential. Performed By: #### L 500.4050, L501.9910, L100.0100, L501.9985 ####[facility] [address] [place], [address] EST GFR - AA 80 mL/min Normal >60 [facility] Comment on above: Result Comment: Afri can [place] GFR Calc Performed By: #### L 500.4050, L501.9910, L100.0100, L501.9985 ####[facility] [address] [place], [address] GAP 8 Normal 5-15 [facility] Comment on above: Performed By: #### L 500.4050, L501.9910, L100.0100, L501.9985 ####[facility] [address] [place], [address] GFR/1.73 sq M.predicted among non-blacks MDRD (S/P/Bld) [Vol rate/Area] 66 mL/min/{1.73_m2} Normal >60 [facility] Comment on above: Result Comment: Non- GFR Calc Performed By: #### L 500.4050, L501.9910, L100.0100, L501.9985 ####[facility] [address] [place], [address] Globulin (S) [Mass/Vol] 3.8 g/dL Normal 2.2-4.2 [facility] Comment on above: Performed By: #### L 500.4050, L501.9910, L100.0100, L501.9985 ####[facility] [address] [place], [address] Glucose [Mass/Vol] 117 mg/dL High 74-106 [facility] Comment on above: Result Comment: Fast ing Glucose result from 100 to 125 mg/dL suggests IMPAIRED HOMEOSTASIS per A.D.A. criteria. Performed By: #### L 500.4050, L501.9910, L100.0100, L501.9985 ####[facility] [address] [place], [address] Potassium [Moles/Vol] 4.9 mmol/L Normal 3.5-5.1 [facility] Comment on above: Performed By: #### L 500.4050, L501.9910, L100.0100, L501.9985 ####[facility] [address] [place], [address] Sodium [Moles/Vol] 138 mmol/L Normal 136-145 [facility] Comment on above: Performed By: #### L 500.4050, L501.9910, L100.0100, L501.9985 ####[facility] [address] [place], [place], [address] T PROT 7.7 g/dL Normal 6.4-8.2 [facility] Comment on above: Performed By: #### L 500.4050, L501.9910, L100.0100, L501.9985 ####[facility] [address] [place], [address] Urea nitrogen [Mass/Vol] 18 mg/dL Normal 7-18 [facility] Comment on above: Performed By: #### L 500.4050, L501.9910, L100.0100, L501.9985 ####[facility] [address] [place], [place], [address] Eosinophil percentageOrdered By: Ximena Gagnon on 09-08-2024 Eosinophils/100 WBC (Bld) 5.1 % High 0-5 [facility] Erythrocyte distribution wid th ratioOrdered By: Ximena Gagnon on 09-08-2024 Erythrocyte distribution width (RBC) [Ratio] 13.9 % 11.6-14.6 [facility] Erythrocyte distribution wid th standard deviationOrdered By: Ximena Gagnon on 09-08-2024 Erythrocyte distribution width (RBC) [Ratio] 43.6 fl 35.1-43.9 [facility] Glomerular filtration rate ( GFR) estimationOrdered By: Ximena Gagnon on 09-08-2024 GFR/1.73 sq M.predicted among non-blacks MDRD (S/P/Bld) [Vol rate/Area] 66 mL/min/{1.73_m2} >60 [facility] Comment on above: Non- GFR Calc Glucose measurementOrdered B y: Ximena Gagnon on 09-08-2024 Glucose [Mass/Vol] 117 mg/dL High 74-106 [facility] Comment on above: Fasting Glucose resu lt from 100 to 125 mg/dL suggests IMPAIRED HOMEOSTASIS per A.D.A. criteria. Hematocrit Auto (Bld) [Volum e fraction]Ordered By: Ximena Gagnon on 09-08-2024 Hematocrit (Bld) [Volume fraction] 38.8 % Low 40-54 [facility] Hemoglobin A1con 09-08-2024 HbA1c (Bld) [Mass fraction] 5.6 % Normal 3.8-5.6 [facility] Comment on above: Result Comment: Norm al < 5.7 % Prediabetic 5.7 - 6.4 % Diabetic >or= 6.5 % Please note range changes. Performed By: #### L 500.4050, L501.9910, L100.0100, L501.9985 ####[facility] [address] [place], [place], [address] Hemoglobin A1c percentageOrd ered By: Ximena Gagnon on 09-08-2024 HbA1c (Bld) [Mass fraction] 5.6 % 3.8-5.6 [facility] Comment on above: Normal < 5.7 % Predi abetic 5.7 - 6.4 % Diabetic >or= 6.5 % Please note range changes. Hemoglobin measurementOrdere d By: Ximena Gagnon on 09-08-2024 Hemoglobin (Bld) [Mass/Vol] 12.5 g/dL Low 13.0-16.5 [facility] Immature granulocytes/100 WB C Auto (Bld)Ordered By: Ximena Gagnon on 09-08-2024 Immature granulocytes/100 WBC (Bld) 0.300 % 0.0-0.9 [facility] Comment on above: IG% - Immature Granu locytes (promyelocytes, myelocytes and metamyelocytes) > 1% indicates that a LEFT SHIFT is Present. Internal Medicine Office Vis itocata 09-08-2024 Internal Medicine Office Visit [facility] [address] [place] [address] [address] [place], [place] [address] OFFICE VISIT Date of Service: 09/08/24 MR#: [id number] Acct: [id number] Name: YARED PEPE (ROB) Rep #: [id number] : 1960 Provider: Dr. Ximena fisher MD Age/Sex: 64/M Location: [facility] Status: Signed Intake Vital Signs 03/07/24 08:05 [...] M FU Chief Complaint: Follow-up chronic conditions. 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 Other chronic medical [...] Gastro GI: (more content not included)... Normal [facility] Laboratory - Chemistry and C hemistry - challengeOrdered By: Ximena Gagnon on 09-08-2024 AST [Catalytic activity/Vol] 15 U/L 15-37 [facility] MCV (mean corpuscular volume ) determinationOrdered By: Ximena Gagnon on 09-08-2024 MCV (RBC) [Entitic vol] 86.2 fL 80-94 [facility] Mean corpuscular hemoglobin (MCH) determinationOrdered By: [place]josephine Gagnon on 09-08-2024 MCH (RBC) [Entitic mass] 27.8 pg 27.0-32.0 [facility] Mean corpuscular hemoglobin concentration (MCHC) determinationOrdered By: Ximena Gagnon on 09-08-2024 MCHC (RBC) [Mass/Vol] 32.2 g/dL 32-36 [facility] Mean platelet volume determi nationOrdered By: [place]josephine Gagnon on 09-08-2024 Platelet mean volume (Bld) [Entitic vol] 11.7 fL 6.2-12.0 [facility] Monocyte percentageOrdered B y: Ximena Gagnon on 09-08-2024 Monocytes/100 WBC (Bld) 8.9 % 0-10 [facility] Neutrophil percentageOrdered By: joseuniontownjosephine Gagnon on 09-08-2024 Neutrophils/100 WBC (Bld) 61.4 % 47-70 [facility] Nucleated red blood cell per centageOrdered By: Ximena Gagnon on 09-08-2024 Nucleated RBC/100 WBC (Bld) [Ratio] 0 % 0-5 [facility] PSA,Total - Annual Screenon 09-08-2024 PSA,TOT SCREEN 0.94 ng/mL Normal 0.00-4.00 [facility] Comment on above: Result Comment: This test was performed using the TPSA assay method for the [employer] chemistry system. Values obtained with different assay methods cannot be used interchangably. When changing PSA assays in the course of monitoring a patient, additional sequential testing should be carried out to confirm baseline values. Performed By: #### L 500.4050, L501.9910, L100.0100, L501.9985 ####[facility] [address] [place], [address] Platelet countOrdered By: Reyes Gagnon on 09-08-2024 Platelets (Bld) [#/Vol] 317 10*3/uL 150-450 [facility] Potassium measurementOrdered By: Ximena Gagnon on 09-08-2024 Potassium [Moles/Vol] 4.9 mmol/L 3.5-5.1 [facility] RBC Auto (Bld) [#/Vol]Ordere d By: Ximena Gagnon on 09-08-2024 RBC (Bld) [#/Vol] 4.50 10*6/uL Low 4.6-6.2 [facility] Serum anion gap measurementO rdered By: Ximena Gagnon on 09-08-2024 Anion gap [Moles/Vol] 8 mmol/L 5-15 [facility] Serum globulin measurementOr dered By: Ximena Gagnon on 09-08-2024 Globulin (S) [Mass/Vol] 3.8 g/dL 2.2-4.2 [facility] Serum or plasma alanine arriaga otransferase (ALT) measurementOrdered By: Ximena Gagnon on 09-08-2024 ALT [Catalytic activity/Vol] 26 U/L 16-61 [facility] Serum or plasma albumin mary urement (mass/volume)Ordered By: Ximena Gagnon on 09-08-2024 Albumin [Mass/Vol] 3.9 g/dL 3.2-5.0 [facility] Serum or plasma alkaline faustino sphatase measurementOrdered By: Ximena Gagnon on 09-08-2024 ALP [Catalytic activity/Vol] 58 U/L 45-117 [facility] Serum or plasma calcium mary urement (mass/volume)Ordered By: Ximena Gagnon on 09-08-2024 Calcium [Mass/Vol] 10.1 mg/dL 8.5-10.1 [facility] Serum or plasma creatinine m easurement (mass/volume)Ordered By: Ximena Gagnon on 09-08-2024 Creatinine [Mass/Vol] 1.19 mg/dL 0.70-1.30 [facility] Comment on above: The validity of the calculated GFR & GFRAA in patients over 70 years has not been determined. Clinical correlation is essential. Serum or plasma urea nitroge n measurement (mass/volume)Ordered By: Ximena Gagnon on 09-08-2024 Urea nitrogen [Mass/Vol] 18 mg/dL 7-18 [facility] Shoulder min 2 Viewson 09-08 Shoulder min 2 Views [facility] [address] [place], [place] [id number] Shoulder min 2 Views MR#: [id number] Acct: [id number] Name: YARED PEPE (ROB) Rep #: [id number] : 1960 M 64 From: Pillo Santa MD PCP: Dr. Ximena Gagnon MD Status: DEP AMB Study: Shoulder min 2 Views Date of Exam: 09/08/24 Exam# [id number] Ordering Dr: Ximena Gagnon MD EXAM: XR Right Shoulder Complete, 2 or More Views CLINICAL INDICATION: TECHNIQUE: Two or more views of the right shoulder. COMPARISON: No relevant prior studies available. FINDINGS: BONES/JOINTS: Unremarkable. No acute fracture. No dislocation. SOFT TISSUES: Unremarkable. RAD/Shoulder min 2 Views IMPRESSION: No acute fracture. Reading [facility] CC: Dr. Ximena Gagnon MD Bulk Loader: Signed Normal [facility] Shoulder min 2 Views [facility] [address] [place] [address] Shoulder min 2 Views MR#: [id number] Acct: [id number] Name: YARED PEPE (ROB) Rep #: [id number] : 1960 M 64 From: Pillo Santa MD PCP: Dr. Ximena Gagnon MD Status: DEP AMB Study: Shoulder min 2 Views Date of Exam: 09/08/24 Exam# [id number] Ordering Dr: Ximena Gagnon MD EXAM: XR Left Shoulder Complete, 2 or More Views CLINICAL INDICATION: TECHNIQUE: Two or more views of the left shoulder. COMPARISON: No relevant prior studies available. FINDINGS: BONES/JOINTS: Unremarkable. No acute fracture. No dislocation. SOFT TISSUES: Unremarkable. RAD/Shoulder min 2 Views IMPRESSION: No acute fracture. Reading Location[facility] CC: Dr. Ximena Gagnon MD Bulk Loader: Signed Normal [facility] Sodium levelOrdered By: Sam Gagnon on 09-08-2024 Sodium [Moles/Vol] 138 mmol/L 136-145 [facility] Total proteinOrdered By: James Gagnon on 09-08-2024 Protein [Mass/Vol] 7.7 g/dL 6.4-8.2 [facility] White blood cell (WBC) count Ordered By: Ximena Gagnon on 09-08-2024 WBC (Bld) [#/Vol] 10.3 10*3/uL 4.4-11.0 [facility] Orthopedic Visit Reporton Orthopedic Visit Report [facility] [facility] [address] [place] [address] OFFICE VISIT Date of Service: 08/29/24 MR#: [id number] Acct: [id number] Name: YARED PEPE (ROB) Rep #: [id number] : 1960 Provider: Dr. Toi peuntes DO Age/Sex: 64/M Location: [facility] Status: Signed Intake Vital Signs 07/10/24 14:46 [...] spouse current occupational status: employed current occupation: [employer] pets and animals: No Smoking Status: [...] a 64 year old M here 08/29/2024: Justin is here he states he has not [...] about 80 (more content not included)... Normal [facility] LISA w/ Reflex Mult Confirmon 07-15-2024 LISA,DIRECT Negative Normal Negative [facility] Comment on above: Performed By: #### L 4600.0100, L3100.5450, L505.7010, L101.9900, L501.6710, L7000.5300 ####[facility] [address] [place], [place], [id number] CCP IgG Antibodieson 024 CCP IgG Ab. 7 units Normal 0-19 [facility] Comment on above: Result Comment: Nega tive <20 Weak positive 20 - 39 Moderate positive 40 - 59 Strong positive >59 Performed at: [address] [id number] Facility Worker: Raj Jansen PhD, Phone: [phone] Performed By: #### L 4600.0100, L3100.5450, L505.7010, L101.9900, L501.6710, L7000.5300 ####[facility] [address] [place], [address] Lyme Screen W/Reflex WBon LYME SCREEN Ab Negative Normal Negative [facility] Comment on above: Result Comment: Lyme [...] L 4600.0100, L3100.5450, L505.7010, L101.9900, L501.6710, L7000.5300 ####[facility] [address] [place], [place], [id number] CRPon 07-10-2024 C-REACTIVE PROT 30.70 mg/L High 0.0-3.0 [facility] Comment on above: Result Comment: C-Re active Protein (CRP) provides useful information for the diagnosis, therapy and monitoring of inflammatory processes and associated diseases. For the evaluation of Relative Risk for Cardiovascular Disease, a High Sensitivity CRP (HSCRP) should be ordered. Performed By: #### L 4600.0100, L3100.5450, L505.7010, L101.9900, L501.6710, L7000.5300 #### [facility] [address] [place], [place], [address] Erythrocyte Sed Rateon 07-10 SED RATE 20 mm/hr Normal 0-20 [facility] Comment on above: Performed By: #### L 4600.0100, L3100.5450, L505.7010, L101.9900, L501.6710, L7000.5300 #### [facility] [address] [place], [place], [address] Internal Medicine Office Vis iton 07-10-2024 Internal Medicine Office Visit [facility] [place] [address] OFFICE VISIT Date of Service: 07/10/24 MR#: [id number] Acct: [id number] Name: RENETTAYAREDRoger CORTES Rep #: [id number] : 1960 Provider: MARIANA Iniguez Age/Sex: 64/M Location: [facility] Status: Signed Intake Vital Signs 03/07/24 08:05 [...] not recall being bitten by a tick [facility] Medical History Borderline type 2 diabetes mellitus [...] did have some mild cold symptoms over Halloween but didn't think that they were that [...] previous m (more content not included)... Normal [facility] Rheumatoid Factoron 07-10-20 24 RHEUMATOID FAC < 10.0 Normal <15 [facility] Comment on above: Performed By: #### L 4600.0100, L3100.5450, L505.7010, L101.9900, L501.6710, L7000.5300 #### [facility] [address] [place], [address] Basophil percentageOrdered B y: Ximena Gagnon on 10-17-2023 Bilirubin [Mass/Vol] 0.40 mg/dL 0.20-1.00 [facility] Comment on above: For patients on eltr ombopag therapy, use of [employer] TBIL is not recommended. Chloride [Moles/Vol] 104 mmol/L 98-107 [facility] Glucose [Mass/Vol] 107 mg/dL 74-106 [facility] Comment on above: Fasting Glucose resu lt from 100 to 125 mg/dL suggests IMPAIRED HOMEOSTASIS per A.D.A. criteria. Potassium [Moles/Vol] 4.4 mmol/L 3.5-5.1 [facility] Comment on above: Moderate Hemolysis, Result may be falsely increased. Protein [Mass/Vol] 7.2 g/dL 6.4-8.2 [facility] Sodium [Moles/Vol] 137 mmol/L 136-145 [facility] - Chemistry and C hemistry - challengeOrdered By: Ximena Gagnon on 10-17-2023 Albumin/Globulin [Mass ratio] 1.1 {ratio} 0.9-2.4 [facility] ALP [Catalytic activity/Vol] 52 U/L 45-117 [facility] ALT [Catalytic activity/Vol] 30 U/L 16-61 [facility] CO2 [Moles/Vol] 27.0 mmol/L 21.0-32.0 [facility] Globulin (S) [Mass/Vol] 3.5 g/dL 2.2-4.2 [facility] Urea nitrogen/Creatinine [Mass ratio] 12.1 mg/mg 10-20 [facility] No Panel InformationOrdered By: Ximena Gagnon on 10-17-2023 Estimated GFR (MDRD) Amer 82 mL/min >60 [facility] Comment on above: GFR Calc Estimated GFR (MDRD) Non-Af Amer 68 mL/min >60 [facility] Comment on above: Non- GFR Calc Serum or plasma calcium mary urement (mass/volume)Ordered By: Ximena Gagnon on 10-17-2023 Calcium [Mass/Vol] 9.0 mg/dL 8.5-10.1 [facility] Serum or plasma creatinine m easurement (mass/volume)Ordered By: Samrhondajosephine Gagnon on 10-17-2023 Creatinine [Mass/Vol] 1.16 mg/dL 0.70-1.30 [facility] Comment on above: The validity of the calculated GFR & GFRAA in patients over 70 years has not been determined. Clinical correlation is essential. Serum or plasma urea nitroge n measurement (mass/volume)Ordered By: Ximena Gagnon on 10-17-2023 Urea nitrogen [Mass/Vol] 14 mg/dL 7-18 [facility] Thin prep Papanicolaou smear with manual screeningOrdered By: maxim Gagnon on 10-17-2023 Thin prep Papanicolaou smear with manual screening 3.7 g/dL 3.2-5.0 [facility] Thin prep Papanicolaou smear with manual screening 33 U/L 15-37 [facility] Comment on above: Moderate Hemolysis, Result may be falsely increased. Thin prep Papanicolaou smear with manual screening 6 5-15 [facility] Absolute lymphocyte countOrd ered By: Ximena Gagnon on 09-08-2023 Lymphocytes Auto (Unsp spec) [#/Vol] 3.46 10*3/uL 0.83-4.51 [facility] Automated lymphocyte count a s percentage of total leukocytesOrdered By: Ximena Gagnon on 09-08-2023 Lymphocytes/100 WBC Auto (Unsp spec) 30.7 % 19-41 [facility] Basophil percentageOrdered B y: Ximena Gagnon on 09-08-2023 Basophils/100 WBC (Bld) 1.1 % 0-1 [facility] Bilirubin [Mass/Vol] 0.30 mg/dL 0.20-1.00 [facility] Comment on above: For patients on eltr ombopag therapy, use of [employer] TBIL is not recommended. Chloride [Moles/Vol] 106 mmol/L 98-107 [facility] Cholesterol [Mass/Vol] 277 mg/dL <200 [facility] Comment on above: <200 mg/dL Desirable 200-240 mg/dL Borderline >240 mg/dL High Risk Eosinophils/100 WBC (Bld) 5.5 % 0-5 [facility] Glucose [Mass/Vol] 119 mg/dL 74-106 [facility] Comment on above: Fasting Glucose resu lt from 100 to 125 mg/dL suggests IMPAIRED HOMEOSTASIS per A.D.A. criteria. Hemoglobin (Bld) [Mass/Vol] 13.3 g/dL 13.0-16.5 [facility] Monocytes/100 WBC (Bld) 9.1 % 0-10 [facility] Neutrophils (Bld) [#/Vol] 6.0 10*3/uL 2.0-7.7 [facility] Neutrophils/100 WBC (Bld) 53.2 % 47-70 [facility] Potassium [Moles/Vol] 4.4 mmol/L 3.5-5.1 [facility] Protein [Mass/Vol] 7.4 g/dL 6.4-8.2 [facility] Sodium [Moles/Vol] 137 mmol/L 136-145 [facility] Triglyceride [Mass/Vol] 95 mg/dL <199 [facility] Comment on above: The drugs N-Acetylcy steine and Metamizole may falsely depress this assay.Serum Triglycerides Reference Interval Normal <150 mg/dL Borderline high 150 - 199 mg/dL High 200 - 499 mg/dL Very High > or = 500 mg/dL WBC (Bld) [#/Vol] 11.3 10*3/uL 4.4-11.0 [facility] Determination of erythrocyte mean corpuscular volume (MCV)Ordered By: Ximena Gagnon on 09-08-2023 MCV (RBC) [Entitic vol] 88.4 fL 80-94 [facility] Erythrocyte distribution wid th ratioOrdered By: Ximena Gagnon on 09-08-2023 Erythrocyte distribution width (RBC) [Ratio] 13.2 % 11.6-14.6 [facility] Erythrocyte distribution wid th standard deviationOrdered By: Ximena Gagnon on 09-08-2023 Erythrocyte distribution width (RBC) [Entitic vol] 42.6 fL 35.1-43.9 [facility] Hematocrit Auto (Bld) [Volum e fraction]Ordered By: Ximena Gagnon on 09-08-2023 Hematocrit (Bld) [Volume fraction] 41.8 % 40-54 [facility] Immature granulocytes/100 WB C Auto (Bld)Ordered By: Ximena Gagnon on 09-08-2023 Immature granulocytes/100 WBC (Bld) 0.400 % 0.0-0.9 [facility] Comment on above: IG% - Immature Granu locytes (promyelocytes, myelocytes and metamyelocytes) > 1% indicates that a LEFT SHIFT is Present. Laboratory - Chemistry and C hemistry - challengeOrdered By: maxim Gagnon on 09-08-2023 Albumin/Globulin [Mass ratio] 1.1 {ratio} 0.9-2.4 [facility] ALP [Catalytic activity/Vol] 64 U/L 45-117 [facility] ALT [Catalytic activity/Vol] 26 U/L 16-61 [facility] Cholesterol in HDL (Body fld) [Mass/Vol] 58 mg/dL >40 [facility] Comment on above: The drugs N-Acetylcy steine and Metamizole may falsely depress this assay. Reference Range HDL <40 mg/dL Low HDL Cholesterol HDL >or= 60 mg/dL High HDL Cholesterol Cholesterol in LDL (Body fld) [Moles/Vol] 200 mg/dL 0-130 [facility] Cholesterol in VLDL Calc [Moles/Vol] 19 mg/dL 5-40 [facility] CO2 [Moles/Vol] 27.0 mmol/L 21.0-32.0 [facility] Globulin (S) [Mass/Vol] 3.6 g/dL 2.2-4.2 [facility] Prostate specific Ag IA [Mass/Vol] 0.83 ng/mL 0.00-4.00 [facility] Comment on above: This test was perfor med using the TPSA assay method for the[facility] chemistry system. Values obtained with differentassay methods cannot be used interchangably.When changing PSA assays in the course of monitoring apatient, additional sequential testing should be carriedout to confirm baseline values. Urea nitrogen/Creatinine [Mass ratio] 12.8 mg/mg 10-20 [facility] - Hematology and Cell countsOrdered By: Ximena Gagnon on 09-08-2023 MCH (RBC) [Entitic mass] 28.1 pg 27.0-32.0 [facility] MCHC (RBC) [Mass/Vol] 31.8 g/dL 32-36 [facility] Nucleated RBC/100 WBC (Bld) [Ratio] 0 % 0-5 [facility] Platelets (Bld) [#/Vol] 337 10*3/uL 150-450 [facility] No Panel InformationOrdered By: Ximena Gagnon on 09-08-2023 Estimated GFR (MDRD) Amer 70 mL/min >60 [facility] Comment on above: GFR Calc Estimated GFR (MDRD) Non-Af Amer 58 mL/min >60 [facility] Comment on above: Non- GFR Calc Platelet mean volume Rogelio-Ec ker (Bld) [Entitic vol]Ordered By: Ximena Gagnon on 09-08-2023 Platelet mean volume (Bld) [Entitic vol] 11.5 fL 6.2-12.0 [facility] RBC Auto (Bld) [#/Vol]Ordere d By: Ximena Gagnon on 09-08-2023 RBC (Bld) [#/Vol] 4.73 10*6/uL 4.6-6.2 [facility] Serum or plasma calcium mary urement (mass/volume)Ordered By: Ximena Gagnon on 09-08-2023 Calcium [Mass/Vol] 9.8 mg/dL 8.5-10.1 [facility] Serum or plasma creatinine m easurement (mass/volume)Ordered By: Ximena Gagnon on 09-08-2023 Creatinine [Mass/Vol] 1.33 mg/dL 0.70-1.30 [facility] Comment on above: The validity of the calculated GFR & GFRAA in patients over 70 years has not been determined. Clinical correlation is essential. Serum or plasma urea nitroge n measurement (mass/volume)Ordered By: Ximena Gagnon on 09-08-2023 Urea nitrogen [Mass/Vol] 17 mg/dL 7-18 [facility] Thin prep Papanicolaou smear with manual screeningOrdered By: Ximena Gagnon on 09-08-2023 Thin prep Papanicolaou smear with manual screening 3.8 g/dL 3.2-5.0 [facility] Thin prep Papanicolaou smear with manual screening 17 U/L 15-37 [facility] Thin prep Papanicolaou smear with manual screening 4 5-15 [facility] Whole blood hemoglobin A1c/t otal hemoglobin ratio (mass fraction)Ordered By: Ximena Gagnon on 09-08-2023 HbA1c (Bld) [Mass fraction] 6.0 % 3.8-5.6 [facility] Comment on above: Normal < 5.7 % Predi abetic 5.7 - 6.4 % Diabetic >or= 6.5 % Please note range changes. Basophil percentageOrdered B y: Pillo Anderson on 12-05-2022 Chloride [Moles/Vol] 108 mmol/L 98-107 [facility] Glucose [Mass/Vol] 116 mg/dL 74-106 [facility] Comment on above: Fasting Glucose resu lt from 100 to 125 mg/dL suggests IMPAIRED HOMEOSTASIS per A.D.A. criteria. Potassium [Moles/Vol] 4.7 mmol/L 3.5-5.1 [facility] Sodium [Moles/Vol] 140 mmol/L 136-145 [facility] - Chemistry and C hemistry - challengeOrdered By: Pillo Anderson on 12-05-2022 CO2 [Moles/Vol] 27.0 mmol/L 21.0-32.0 [facility] Urea nitrogen/Creatinine [Mass ratio] 11.3 mg/mg 10-20 [facility] No Panel InformationOrdered By: Pillo Anderson on 12-05-2022 Estimated GFR (MDRD) Amer 83 mL/min >60 [facility] Comment on above: GFR Calc Estimated GFR (MDRD) Non-Af Amer 69 mL/min >60 [facility] Comment on above: Non- GFR Calc Serum or plasma calcium mary urement (mass/volume)Ordered By: Pillo Anderson on 12-05-2022 Calcium [Mass/Vol] 9.4 mg/dL 8.5-10.1 [facility] Serum or plasma creatinine m easurement (mass/volume)Ordered By: Pillo Anderson on 12-05-2022 Creatinine [Mass/Vol] 1.15 mg/dL 0.70-1.30 [facility] Comment on above: The validity of the calculated GFR & GFRAA in patients over 70 years has not been determined. Clinical correlation is essential. Serum or plasma urea nitroge n measurement (mass/volume)Ordered By: Pillo Anderson on 12-05-2022 Urea nitrogen [Mass/Vol] 13 mg/dL 7-18 [facility] Thin prep Papanicolaou smear with manual screeningOrdered By: Pillo Anderson on 12-05-2022 Thin prep Papanicolaou smear with manual screening 5 5-15 [facility] Absolute lymphocyte countOrd ered By: Pillo Monica on 08-29-2022 Lymphocytes Auto (Unsp spec) [#/Vol] 2.87 10*3/uL 0.83-4.51 [facility] Basophil percentageOrdered B y: Pillo Anderson on 08-29-2022 Basophils/100 WBC (Bld) 0.8 % 0-1 [facility] Bilirubin [Mass/Vol] 0.20 mg/dL 0.20-1.00 [facility] Comment on above: For patients on eltr ombopag therapy, use of [employer] TBIL is not recommended. Chloride [Moles/Vol] 107 mmol/L 98-107 [facility] Cholesterol [Mass/Vol] 228 mg/dL <200 [facility] Comment on above: <200 mg/dL Desirable 200-240 mg/dL Borderline >240 mg/dL High Risk Eosinophils/100 WBC (Bld) 3.3 % 0-5 [facility] Glucose [Mass/Vol] 111 mg/dL 74-106 [facility] Comment on above: Fasting Glucose resu lt from 100 to 125 mg/dL suggests IMPAIRED HOMEOSTASIS per A.D.A. criteria. Neutrophils (Bld) [#/Vol] 6.3 10*3/uL 2.0-7.7 [facility] Neutrophils/100 WBC (Bld) 59.0 % 47-70 [facility] Potassium [Moles/Vol] 4.8 mmol/L 3.5-5.1 [facility] Protein [Mass/Vol] 7.3 g/dL 6.4-8.2 [facility] Sodium [Moles/Vol] 140 mmol/L 136-145 [facility] Triglyceride [Mass/Vol] 109 mg/dL <199 [facility] Comment on above: The drugs N-Acetylcy steine and Metamizole may falsely depress this assay.Serum Triglycerides Reference Interval Normal <150 mg/dL Borderline high 150 - 199 mg/dL High 200 - 499 mg/dL Very High > or = 500 mg/dL WBC (Bld) [#/Vol] 10.7 10*3/uL 4.4-11.0 [facility] Blood erythrocytes count (nu mber/volume)Ordered By: Pillo Anderson on 08-29-2022 RBC (Bld) [#/Vol] 4.75 10*6/uL 4.6-6.2 [facility] Blood hemoglobin measurement (mass/volume)Ordered By: Pillo Anderson on 08-29-2022 Hemoglobin (Bld) [Mass/Vol] 13.7 g/dL 13.0-16.5 [facility] Blood lymphocytes/100 leukoc ytesOrdered By: Pillo Anderson on 08-29-2022 Lymphocytes/100 WBC (Bld) 26.9 % 19-41 [facility] Blood monocytes/100 leukocyt esOrdered By: Pillo Anderson on 08-29-2022 Monocytes/100 WBC (Bld) 9.7 % 0-10 [facility] Blood platelet mean volumeOr dered By: Pillo Anderson on 08-29-2022 Platelet mean volume (Bld) [Entitic vol] 11.8 fL 6.2-12.0 [facility] Determination of erythrocyte mean corpuscular volume (MCV)Ordered By: Pillo Anderson on 08-29-2022 MCV (RBC) [Entitic vol] 89.1 fL 80-94 [facility] Hematocrit Auto (Bld) [Volum e fraction]Ordered By: Pillo Anderson on 08-29-2022 Hematocrit (Bld) [Volume fraction] 42.3 % 40-54 [facility] - Chemistry and C hemistry - challengeOrdered By: Pillo Anderson on 08-29-2022 ALP [Catalytic activity/Vol] 70 U/L 45-117 [facility] ALT [Catalytic activity/Vol] 33 U/L 16-61 [facility] CO2 [Moles/Vol] 25.0 mmol/L 21.0-32.0 [facility] Globulin (S) [Mass/Vol] 3.6 g/dL 2.2-4.2 [facility] Urea nitrogen/Creatinine [Mass ratio] 16.8 mg/mg 10-20 [facility] - Hematology and Cell countsOrdered By: Pillo Anderson on 08-29-2022 Erythrocyte distribution width (RBC) [Entitic vol] 45.2 fL 35.1-43.9 [facility] Erythrocyte distribution width (RBC) [Ratio] 13.9 % 11.6-14.6 [facility] Immature granulocytes/100 WBC (Bld) 0.300 % 0.0-0.9 [facility] Comment on above: IG% - Immature Granu locytes (promyelocytes, myelocytes and metamyelocytes) > 1% indicates that a LEFT SHIFT is Present. MCH (RBC) [Entitic mass] 28.8 pg 27.0-32.0 [facility] Nucleated RBC/100 WBC (Bld) [Ratio] 0 % 0-5 [facility] MCHC Auto (RBC) [Mass/Vol]Or dered By: Pillo Anderson on 08-29-2022 MCHC (RBC) [Mass/Vol] 32.4 g/dL 32-36 [facility] No Panel InformationOrdered By: Pillo Anderson on 08-29-2022 Estimated GFR (MDRD) Amer 91 mL/min >60 [facility] Comment on above: GFR Calc Estimated GFR (MDRD) Non-Af Amer 75 mL/min >60 [facility] Comment on above: Non- GFR Calc Prostate Specific Antigen Screen 1.07 ng/mL 0.00-4.00 [facility] Comment on above: This test was perfor med using the TPSA assay method for the[employer] chemistry system. Values obtained with differentassay methods cannot be used interchangably.When changing PSA assays in the course of monitoring apatient, additional sequential testing should be carriedout to confirm baseline values. Thyroid Stimulating Hormone (TSH) 1.09 uIU/mL 0.358-3.74 [facility] Platelets bldOrdered By: Xiomara Anderson on 08-29-2022 Platelets (Bld) [#/Vol] 302 10*3/uL 150-450 [facility] Serum or plasma albumin mary urement (mass/volume)Ordered By: Pillo Anderson on 08-29-2022 Albumin [Mass/Vol] 3.7 g/dL 3.2-5.0 [facility] Serum or plasma albumin/glob ulin mass ratioOrdered By: Pillo Anderson on 08-29-2022 Albumin/Globulin [Mass ratio] 1.0 {ratio} 0.9-2.4 [facility] Serum or plasma calcium mary urement (mass/volume)Ordered By: Pillo Anderson on 08-29-2022 Calcium [Mass/Vol] 9.1 mg/dL 8.5-10.1 [facility] Serum or plasma cholesterol in HDL measurement (mass/volume)Ordered By: Pillo Anderson on 08-29-2022 Cholesterol in HDL [Mass/Vol] 59 mg/dL >40 [facility] Comment on above: The drugs N-Acetylcy steine and Metamizole may falsely depress this assay. Reference Range HDL <40 mg/dL Low HDL Cholesterol HDL >or= 60 mg/dL High HDL Cholesterol Serum or plasma cholesterol in VLDL measurement (mass/volume)Ordered By: Pillo Anderson on 08-29-2022 Cholesterol in VLDL [Mass/Vol] 22 mg/dL 5-40 [facility] Serum or plasma creatinine m easurement (mass/volume)Ordered By: Pillo Anderson on 08-29-2022 Creatinine [Mass/Vol] 1.07 mg/dL 0.70-1.30 [facility] Comment on above: The validity of the calculated GFR & GFRAA in patients over 70 years has not been determined. Clinical correlation is essential. Serum or plasma low density lipoprotein (LDL) cholesterol measurement (mass/volume)Ordered By: Pillo Anderson on 08-29-2022 Cholesterol in LDL [Mass/Vol] 147 mg/dL 0-130 [facility] Serum or plasma urea nitroge n measurement (mass/volume)Ordered By: Pillo Anderson on 08-29-2022 Urea nitrogen [Mass/Vol] 18 mg/dL 7-18 [facility] Thin prep Papanicolaou smear with manual screeningOrdered By: Pillo Anderson on 01-24-2023 Thin prep Papanicolaou smear with manual screening 18 U/L 15-37 [facility] Thin prep Papanicolaou smear with manual screening 8 5-15 [facility] Whole blood hemoglobin A1c/t otal hemoglobin ratio (mass fraction)Ordered By: Pillo Anderson on 08-29-2022 HbA1c (Bld) [Mass fraction] 5.8 % 3.8-5.6 [facility] Comment on above: Normal < 5.7 % Predi abetic 5.7 - 6.4 % Diabetic >or= 6.5 % Please note range changes. OBSOLETEon 04-23-2017 OBSOLETE Refill (FAMPWS) YARED DUMAS ([id number]) 1960 MDate Time Provider Department04/23/17 GUANAKITO LR FAMPWS During your visit today, we recorded the following information about you:Alexandria Murdock [facility] 04/23/2017 10:04 AM SignedPatient states he is aware he is due for an appointment but he is [facility] He cannot get in with the new pcp until June,please send a temporary supply to the pharmacy attached, please advise.Patient has been identified by name and date of : YesRX INSTRUCTIONS:Patient aware RX will be sent to pharmacy. No need to notify patient.Alexandria Murdock PSRValerie J Cortelli Pharm-T 04/23/2017 11:41 AM SignedPharmacist Refill Authorization Patient OutreachAn attempt to gather or give information has been made via Pharmacy Call.Spoke with Lennie at the pharmacy about: Gathering medication information.Summary of the pharmacy interaction: They do have Atenolol in stockValerie J Cortelli Pharm-TPharmacy Managed Authorization CenterPhone Viridiana Aparicio PharmD 04/24/2017 1:21 PM SignedPSR-Please reach out to the patient to schedule a yearly appointment with PCP.Limited refills approved until thenMer[facility] CentersPharmacist Refill Authorization ReviewName: Yared GonzalessMRN: [id number]: 04/24/2017Time: 1:19 PMRefill authorization request(s) received via [...] - AnaphylaxisDate Reviewed: 11/09/2016Reviewed by: Juliann Lorenzo Headlight Adjuster - Fully AssessedReason for Visit: Refill Request [...] Status:Closed by KEVIN MCMULLEN on 04/24/17 Normal [facility] Vital Signs Date Time Vital Sign Value Performing Clinician Enidi cam 03-27-2025 09:04-0400 Body height 170.[address] Ximena Gagnon MD Work Phone: [facility] 03-27-2025 09:04-0400 Body mass index (BMI) [Ratio] 32.8 kg/m2 Dr. Ximena Gagnon MD Work Phone: [facility] 03-27-2025 09:04-0400 Body temperature 97.1 [degF] Dr. Ximena Gagnon MD Work Phone: [facility] 03-27-2025 09:04-0400 Body weight 95.[address] Ximena Gagnon MD Work Phone: [facility] 03-27-2025 09:04-0400 Diastolic blood pressure 82 mm[Hg] Dr. Ximena Gagnon MD Work Phone: [facility] 03-27-2025 09:04-0400 Heart rate 54 /min Dr. Ximena Gagnon MD Work Phone: [facility] 03-27-2025 09:04-0400 Respiratory rate 18 /min Dr. Ximena Gagnon MD Work Phone: [facility] 03-27-2025 09:04-0400 SaO2% (BldA) [Mass fraction] 93 % Dr. Ximena Gagnon MD Work Phone: [facility] 03-27-2025 09:04-0400 Systolic blood pressure 146 mm[Hg] Dr. Ximena Gagnon MD Work Phone: [facility] 01-20-2025 08:30-0400 Body temperature 97.6 [degF] Dr. Ximena Gagnon MD Work Phone: [facility] 01-20-2025 08:30-0400 Diastolic blood pressure 69 mm[Hg] Dr. Ximena Gagnon MD Work Phone: [facility] 01-20-2025 08:30-0400 Heart rate 55 /min Dr. Ximena Gagnon MD Work Phone: [facility] 01-20-2025 08:30-0400 Respiratory rate 18 /min Dr. Ximena Gagnon MD Work Phone: [facility] 01-20-2025 08:30-0400 SaO2% (BldA) [Mass fraction] 94 % Dr. Ximena Gagnon MD Work Phone: [facility] 01-20-2025 08:30-0400 Systolic blood pressure 112 mm[Hg] Dr. Ximena Gagnon MD Work Phone: [facility] 01-20-2025 06:49-0400 Body height 170.[address] Ximena Gagnon MD Work Phone: [facility] 01-20-2025 06:49-0400 Body mass index (BMI) [Ratio] 32.1 kg/m2 Dr. Ximena Gagnon MD Work Phone: [facility] 01-20-2025 06:49-0400 Body weight [address] Ximena Gagnon MD Work Phone: [facility] 12-31-2024 10:55-0400 Body height 172.[address] Ximena Gagnon MD Work Phone: [facility] 12-31-2024 10:55-0400 Body mass index (BMI) [Ratio] 32.1 kg/m2 Dr. Ximena Gagnon MD Work Phone: [facility] 12-31-2024 10:55-0400 Body temperature 97.8 [degF] Dr. Ximena Gagnon MD Work Phone: [facility] 12-31-2024 10:55-0400 Body weight 95.[address] Ximena Gagnon MD Work Phone: [facility] 12-31-2024 10:55-0400 Diastolic blood pressure 81 mm[Hg] Dr. Ximena Gagnon MD Work Phone: [facility] 12-31-2024 10:55-0400 Heart rate 65 /min Dr. Ximena Gagnon MD Work Phone: [facility] 12-31-2024 10:55-0400 Respiratory rate 16 /min Dr. Ximena Gagnon MD Work Phone: [facility] 12-31-2024 10:55-0400 SaO2% (BldA) [Mass fraction] 97 % Dr. Ximena Gagnon MD Work Phone: [facility] 12-31-2024 10:55-0400 Systolic blood pressure 134 mm[Hg] Dr. Ximena Gagnon MD Work Phone: [facility] 12-12-2024 08:13-0400 Body height 172.[address] Ximena Gagnon MD Work Phone: [facility] 12-12-2024 08:13-0400 Body mass index (BMI) [Ratio] 32.2 kg/m2 Dr. Ximena Gagnon MD Work Phone: [facility] 12-12-2024 08:13-0400 Body temperature 96.3 [degF] Dr. Ximena Gagnon MD Work Phone: [facility] 12-12-2024 08:13-0400 Body weight 96.[address] Ximena Gagnon MD Work Phone: [facility] 12-12-2024 08:13-0400 Diastolic blood pressure 70 mm[Hg] Dr. Ximena Gagnon MD Work Phone: [facility] 12-12-2024 08:13-0400 Heart rate 66 /min Dr. Ximena Gagnon MD Work Phone: [facility] 12-12-2024 08:13-0400 Respiratory rate 16 /min Dr. Ximena Gagnon MD Work Phone: [facility] 12-12-2024 08:13-0400 SaO2% (BldA) [Mass fraction] 99 % Dr. Ximena Gagnon MD Work Phone: [facility] 12-12-2024 08:13-0400 Systolic blood pressure 130 mm[Hg] Dr. Ximena Gagnon MD Work Phone: [facility] 09-08-2024 08:02-0500 Body mass index (BMI) [Ratio] 34.2 kg/m2 Dr. Ximena Gagnon MD Work Phone: [facility] 09-08-2024 08:02-0500 Body temperature 97.4 [degF] Dr. Ximena Gagnon MD Work Phone: [facility] 09-08-2024 08:02-0500 Body weight 102.[address] Ximena Gagnon MD Work Phone: [facility] 09-08-2024 08:02-0500 Diastolic blood pressure 70 mm[Hg] Dr. Ximena Gagnon MD Work Phone: [facility] 09-08-2024 08:02-0500 Heart rate 50 /min Dr. Ximena Gagnon MD Work Phone: [facility] 09-08-2024 08:02-0500 Respiratory rate 12 /min Dr. Ximena Gagnon MD Work Phone: [facility] 09-08-2024 08:02-0500 SaO2% (BldA) [Mass fraction] 99 % Dr. Ximena Gagnon MD Work Phone: [facility] 09-08-2024 08:02-0500 Systolic blood pressure 112 mm[Hg] Dr. Ximena Gagnon MD Work Phone: [facility] 09-06-2023 17:49-0500 Body height 172.72 cm [employer] TALENT MANAGER-C Pillo Anderson HUMAN RESOURCES TALENT MANAGER Work Phone: [facility] 09-06-2023 17:49-0500 Body mass index (BMI) [Ratio] 34 kg/m2 [employer] TALENT MANAGER-C Pillo Anderson HUMAN RESOURCES TALENT MANAGER Work Phone: [facility] 09-06-2023 17:49-0500 Body temperature 99.5 [degF] H[employer]OURCES TALENT MANAGER-C Pillo Anderson HUMAN RESOURCES TALENT MANAGER Work Phone: [facility] 09-06-2023 17:49-0500 Body weight 101.6 kg H[employer]OURCES TALENT MANAGER-C Pillo Anderson HUMAN RESOURCES TALENT MANAGER Work Phone: [facility] 09-06-2023 17:49-0500 Diastolic blood pressure 80 mm[Hg] H[employer] TALENT MANAGER-C Pillo Anderson HUMAN RESOURCES TALENT MANAGER Work Phone: [facility] 09-06-2023 17:49-0500 Heart rate 65 /min H[employer]OURCES TALENT MANAGER-C Pillo Anderson HUMAN RESOURCES TALENT MANAGER Work Phone: [facility] 09-06-2023 17:49-0500 Respiratory rate 14 /min H[employer]OURCES TALENT MANAGER-C Pillo Anderson HUMAN RESOURCES TALENT MANAGER Work Phone: [facility] 09-06-2023 17:49-0500 SaO2% (BldA) [Mass fraction] 95 % [employer] TALENT MANAGER-C Pillo Anderson HUMAN RESOURCES TALENT MANAGER Work Phone: [facility] 09-06-2023 17:49-0500 Systolic blood pressure 120 mm[Hg] H[employer] TALENT MANAGER-C Pillo Anderson HUMAN RESOURCES TALENT MANAGER Work Phone: [facility] 11-24-2022 08:00-0400 Body temperature 97.7 [degF] H[employer]OURCES TALENT MANAGER-C Plilo Anderson HUMAN RESOURCES TALENT MANAGER Work Phone: [facility] 11-24-2022 08:00-0400 Diastolic blood pressure 68 mm[Hg] H[employer] TALENT MANAGER-C Pillo Anderson HUMAN RESOURCES TALENT MANAGER Work Phone: [facility] 11-24-2022 08:00-0400 Heart rate 50 /min H[employer] TALENT MANAGER-C Pillo Anderson HUMAN RESOURCES TALENT MANAGER Work Phone: [facility] 11-24-2022 08:00-0400 Respiratory rate 16 /min H[employer] TALENT MANAGER-C Pillo Anderson HUMAN RESOURCES TALENT MANAGER Work Phone: [facility] 11-24-2022 08:00-0400 SaO2% (BldA) [Mass fraction] 93 % [employer] TALENT MANAGER-C Pillo Anderson HUMAN RESOURCES TALENT MANAGER Work Phone: [facility] 11-24-2022 08:00-0400 Systolic blood pressure 113 mm[Hg] H[employer]OURCES TALENT MANAGER-C Pillo Anderson HUMAN RESOURCES TALENT MANAGER Work Phone: [facility] 11-24-2022 06:47-0400 Body height 172.72 cm H[employer]OURCES TALENT MANAGER-C Pillo Anderson HUMAN RESOURCES TALENT MANAGER Work Phone: [facility] 11-24-2022 06:47-0400 Body mass index (BMI) [Ratio] 33.5 kg/m2 [employer] TALENT MANAGER-C Pillo Anderson HUMAN RESOURCES TALENT MANAGER Work Phone: [facility] 11-24-2022 06:47-0400 Body weight 100 kg H[employer]OURCES TALENT MANAGER-C Pillo Anderson HUMAN RESOURCES TALENT MANAGER Work Phone: [facility] 09-05-2022 14:52-0500 Body height 172.72 cm H[employer]OURCES TALENT MANAGER-C Pillo Anderson HUMAN RESOURCES TALENT MANAGER Work Phone: [facility] 09-05-2022 14:52-0500 Body mass index (BMI) [Ratio] 34.7 kg/m2 [employer] TALENT MANAGER-C Pillo Anderson HUMAN RESOURCES TALENT MANAGER Work Phone: [facility] 09-05-2022 14:52-0500 Body weight 103.41 kg H[employer]OURCES TALENT MANAGER-C Pillo Anderson HUMAN RESOURCES TALENT MANAGER Work Phone: [facility] 08-02-2022 11:29-0500 Body mass index (BMI) [Ratio] 35.7 kg/m2 H[employer] TALENT MANAGER-C Pillo Anderson HUMAN RESOURCES TALENT MANAGER Work Phone: [facility] 08-02-2022 11:29-0500 Body temperature 97.1 [degF] H[employer]OURCES TALENT MANAGER-C Pillo Anderson HUMAN RESOURCES TALENT MANAGER Work Phone: [facility] 08-02-2022 11:29-0500 Body weight 103.53 kg H[employer] RESOURCES TALENT MANAGER-C Pillo Anderson HUMAN RESOURCES TALENT MANAGER Work Phone: [facility] 08-02-2022 11:29-0500 Diastolic blood pressure 96 mm[Hg] H[employer] TALENT MANAGER-C Pillo Anderson HUMAN RESOURCES TALENT MANAGER Work Phone: [facility] 08-02-2022 11:29-0500 Heart rate 60 /min H[employer] TALENT MANAGER-C Pillo Anderson HUMAN RESOURCES TALENT MANAGER Work Phone: [facility] 08-02-2022 11:29-0500 Respiratory rate 18 /min H[employer]OURCES TALENT MANAGER-C Pillo Anderson HUMAN RESOURCES TALENT MANAGER Work Phone: [facility] 08-02-2022 11:29-0500 SaO2% (BldA) [Mass fraction] 96 % H[employer]OURCES TALENT MANAGER-C Pillo Anderson HUMAN RESOURCES TALENT MANAGER Work Phone: [facility] 08-02-2022 11:29-0500 Systolic blood pressure 156 mm[Hg] H[employer]OURCES TALENT MANAGER-C Pillo Anderson HUMAN RESOURCES TALENT MANAGER Work Phone: [facility] Encounters Encounter Date Encounter Type Care Provider Facility Start: 06-15-2025 ambulatory Zan Casanova Facility :[facility] Start: 06-01-2025 End: 06-01-2025 ambulatory Emoryjosephine Baltazarheshammaynor Facility:[facility] Start: 03-27-2025 End: 03-27-2025 Patient encounter procedure Noe PEÑA -[facility] Work Phone: Start: 03-27-2025 End: 03-27-[address] Ximena Gagnon MD Work Phone: -[facility] Start: 01-20-2025 Non-patient / Non-visit Dr. Armida Gil MD -[facility] Start: 01-20-2025 End: 01-20-2025 Admission to same day surgery center Dr. Michoacano Gil MD -Endoscopy Work Phone: Start: 01-20-2025 End: 01-20-[address] Ximena Gagnon MD Work Phone: [facility] Work Phone: Start: 12-31-2024 End: 12-31-[address] Michoacano Gil MD -[facility] Work Phone: Start: 12-31-2024 End: 12-31-[address] Ximena Gagnon MD Work Phone: [facility] Work Phone: Start: 12-18-2024 End: 12-18-[address] Ximena Gagnon MD Work Phone: [facility] Work Phone: Start: 12-18-2024 End: 12-18-[address] Ximena Gagnon MD -Laboratory Specimen Work Phone: Start: 12-18-2024 End: 12-18-2024 ambulatory Ximena Gagnon Facility:[facility] Start: 12-12-2024 End: 12-12-[address] Ximena Gagnon MD -[facility] Work Phone: Start: 12-12-2024 End: 12-12-[address] Ximena Gagnon MD Work Phone: [facility] Work Phone: Start: 12-12-2024 End: 12-12-2024 [facility] Start: 09-12-2024 End: 09-12-[address] Zan Casanova MD -[facility] Work Phone: Start: 09-12-2024 End: 09-12-2024 ambulatory Efewongbe Oleghe Facility:[facility] Start: 09-08-2024 End: 09-08-[address] Rene Angela MD -[facility] Start: 09-08-2024 End: 09-08-2024 ambulatory Efewongbe Oleghe Facility:[facility] Start: 09-08-2024 End: 09-08-[address] Ximena Gagnon MD -[facility] Work Phone: Start: 09-08-2024 End: 09-08-2024 ambulatory Efewongbe Oleghe Facility:[facility] Start: 09-08-2024 End: 09-08-[facility] Start: 08-29-2024 End: 08-29-[address] Toi Mcdowell DO -[facility] Work Phone: Start: 08-29-2024 End: 08-29-2024 ambulatory Efewongbe Oleghe Facility:[facility] Start: 07-10-2024 End: 07-10-2024 ambulatory Efewongbe Oleghe Facility:[facility] Start: 07-10-2024 End: 07-10-2024 [facility] Start: 10-17-2023 End: 10-17-2023 ambulatory MUNIRA Anderson NP Work Phone: [facility] Work Phone: Start: 10-17-2023 End: 10-17-2023 Patient encounter procedure H[employer] TALENT MANAGER-C Pillo Anderson HUMAN RESOURCES TALENT MANAGER Work Phone: [facility]-Laboratory, OP Pavilion Start: 09-08-2023 End: 09-08-2023 ambulatory H[employer]OURCES TALENT MANAGER-C Pillo Anderson HUMAN RESOURCES TALENT MANAGER Work Phone: [facility] Work Phone: Start: 09-08-2023 End: 09-08-2023 Patient encounter procedure HUMAN RESOURCES TALENT MANAGER-C Pillo Anderson HUMAN RESOURCES TALENT MANAGER Work Phone: [facility]-Laboratory Work Phone: Start: 09-06-2023 End: 09-06-2023 Encounter for general adult medical examination without abnormal findings HUMAN RESOURCES TALENT MANAGER-C Pillo Anderson HUMAN RESOURCES TALENT MANAGER Work Phone: [facility] Start: 09-06-2023 End: 09-06-2023 Patient encounter procedure HUMAN RESOURCES TALENT MANAGER-C Pillo Anderson HUMAN RESOURCES TALENT MANAGER Work Phone: [facility] Work Phone: Start: 12-05-2022 End: 12-05-2022 ambulatory H[employer]OURCES TALENT MANAGER-C Pillo Anderson HUMAN RESOURCES TALENT MANAGER Work Phone: [facility] Work Phone: Start: 12-05-2022 End: 12-05-2022 Patient encounter procedure HUMAN RESOURCES TALENT MANAGER-C Pillo Anderson HUMAN RESOURCES TALENT MANAGER Work Phone: [facility]-Laboratory, [facility] Start: 11-24-2022 Non-patient / Non-visit H[employer] TALENT MANAGER-C Paresh Anderson HUMAN RESOURCES TALENT MANAGER Work Phone: [facility] Start: 11-24-2022 End: 11-24-2022 Admission to same day surgery center HUM[employer]OURCES TALENT MANAGER-C Pillo Anderson HUMAN RESOURCES TALENT MANAGER Work Phone: [facility]-Endoscopy Start: 11-24-2022 End: 11-24-2022 ambulatory HUM[employer]OURCES TALENT MANAGER-C Pillo Anderson HUMAN RESOURCES TALENT MANAGER Work Phone: [facility] Work Phone: Start: 09-05-2022 Non-patient / Non-visit H[employer] TALENT MANAGER-C Paresh willsroel Monica HUMAN RESOURCES TALENT MANAGER Work Phone: [facility] Start: 08-29-2022 End: 08-29-2022 ambulatory H[employer]OURCES TALENT MANAGER-C Pillo Anderson HUMAN RESOURCES TALENT MANAGER Work Phone: [facility] Work Phone: Start: 08-29-2022 Patient encounter status HUMAN RESOURCES TALENT MANAGER-C Pillo Vergarader HUMAN RESOURCES TALENT MANAGER Work Phone: [facility] Start: 08-29-2022 End: 08-29-2022 Encounter for general adult medical examination without abnormal findings HUMAN RESOURCES TALENT MANAGER-C Pillo Monica HUMAN RESOURCES TALENT MANAGER Work Phone: [facility] Start: 08-29-2022 End: 08-29-2022 Patient encounter procedure HUMAN RESOURCES TALENT MANAGER-C Pillo Monica HUMAN RESOURCES TALENT MANAGER Work Phone: [facility] Start: 05-16-2021 Patient encounter status HUMAN RESOURCES TALENT MANAGER-C Pillo Vergarader HUMAN RESOURCES TALENT MANAGER Work Phone: [facility] Procedures Date Procedure Procedure Detail Performing Clinician Start: 01-20-[address] Miguel Angel Gagnon MD Work Phone: Start: 12-18-2024 Measurement of occul t blood [...] med using the TPSA assay method for the[employer]riction[employer] chemistry system. Values obtained with differentassay methods cannot be used interchangably.When changing PSA assays in the course of monitoring apatient, additional sequential testing should be carriedout to confirm baseline values. Start: 11-24-2022 Colonoscopy HUMAN RESOURCES TALENT MANAGER-C Pillo Anderson HUMAN RESOURCES TALENT MANAGER Work Phone: Plan of Treatment Date Care Activity Detail Author Start: 01-20-2025 Colonoscopy flx dx w/collj spec when pfrmd DIAGNOSTIC COLONOSCOPY [facility] Start: 01-20-2025 Esophagogastroduodenoscopy transoral diagnostic EGD DIAGNOSTIC BRUSH WASH [facility] Start: 01-20-2025 Patient discharge [facility] Start: 09-12-2024 Patient referral [facility] Work Phone: Start: 11-24-2022 Colsc flx w/rmvl of tumor polyp lesion snare tq COLONOSCOPY W/LESION REMOVAL [facility] Start: 11-24-2022 Patient discharge [facility] Start: 08-29-2022 Patient referral [facility] Work Phone: Colonoscopy [facility] Colonoscopy [facility] Hemoglobin A1c/Hemog lobin.total in Blood [facility] Patient referral [facility] Work Phone: [facility] Immunizations Immunization Date Immunization Notes Care Provider [facility] 05-04-2022 Leslye Godoy Bivale nt Booster Dr. Ximena Gagnon MD Work Phone: [facility] 08-15-2021 zoster vaccine recombinant H[employer] TALENT MANAGER-C Pillo Anderson HUMAN RESOURCES TALENT MANAGER Work Phone: [facility] 06-23-2021 Covid (Moderna) Dr. Jean Gagnon MD Work Phone: [facility] 05-25-2021 zoster vaccine recombinant HUMAN [employer]OURCES TALENT MANAGER-C Pillo Anderson HUMAN RESOURCES TALENT MANAGER Work Phone: [facility] 11-11-2020 Covid (Moderna) Dr. Jean Gagnon MD Work Phone: [facility] 10-15-2020 Covid (Moderna) Dr. Jean Gagnon MD Work Phone: [facility] Payers Date Payer Category Payer Self-pay [id number] 2024 Unknown [id number] Private Health Insurance A00 [id number] Unknown [facility] [id number] Unknown [id number]. 462 Unknown [id number]. 462 Unknown [id number]. 462 Unknown [id number]. 462 Unknown [id number]. 462 Unknown [id number] [id number]. 462 Unknown [id number] [id number]. 462 Unknown [id number] 2.16.840.1.743089.3.579.2. 462 Unknown [id number] 2.16.840.1.568187.3.579.2. 462 Unknown [id number] 2.16.840.1.591350.3.579.2. 462 Unknown [id number] 2.16.840.1.115379.3.579.2. 462 Unknown [id number] [id number]. 462 Unknown [id number] 2.16.840.1.003436.3.579.2. 462 Unknown [id number] 2.16.840.1.849248.3.579.2. 462 Unknown [id number] [id number]. 462 Unknown [id number]. 462 Social History Date Type Detail Facility Start: 08-29-2022 End: 09-06-2023 Tobacco smoking status NHIS Unknown if ever smoked [facility] Start: 1960 Sex Assigned At Male [facility] Start: 09-11-2024 End: 01-16-2025 Tobacco smoking status NHIS Never smoked tobacco (finding) [facility] Goals Date Patient Goal Desired Activity /State Mental Status Date Assessment Result Facility 01-20-2025 Cognitive function Level Of Cons ciousness Follows Commands;Drowsy [facility] Work Phone: 01-20-2025 Cognitive function Arousable To Voice/Nam e [facility] Work Phone: 11-24-2022 Cognitive function Touch/Shaking [facility] Work Phone: Clinical Notes 11-24-2022 to 01-20-2025 Note Date & Type Note Facility 01-20-2025 History and physi bee note Note Date/Time January 20, 2025 6:52am [facility] Medical Records Department [address] [place] [address] History & Physical Exam 01/20/25 0652 MR#: [id number] Acct: [id number] Name: YARED PEPE (ROB) Rep #:[id number] : 1960 64 From: [place]oacano correia MD PCP: Dr. 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: No Accompanied by: Self Is patient in pain?: No Allergies Penicillins Allergy (Unknown, Verified 12/31/24 10:48) unknown Medications ?Medication ?Instructions ?Recorded ?Confirmed ?Type aspirin 81 mg capsule 81 mg PO DAILY 05/16/21 12/31/24 History multivitamin 1 tab PO DAILY 05/16/21 12/31/24 History fexofenadine 60 mg tablet (Rosalinda 60 mg PO DAILY 09/05/22 12/31/24 History Allergy) atenolol 50 mg tablet 50 mg PO DAILY #90 tabs 08/20/23 5 Rx ibuprofen 200 mg capsule 200 mg PO Q6H PRN 08/29/24 12/31/24 Hist ory rosuvastatin 20 mg tablet 20 mg PO DAILY #90 tabs 10/09/24 5 Rx lisinopril 20 1 tab PO DAILY #90 tabs 12/17/24 5 Rx mg-hydrochlorothiazide 12.5 mg tablet phentermine 37.5 mg tablet 18.75 mg (1/2 x 37.5 mg) PO QDAY 5 12/31/24 Rx (Adipex-P) #30 tabs PFSH Medical [...] History of colonoscopy Family History Father Heart diseaseDaughter No problems noted. Mother Breast cancerGrandmother Colon cancerGrandfather Heart disease Social History adopted: No household [...] here for iron deficiency anemia and positive fecaloccult blood. Patient is on aspirin. He denies abdominal pain. He had his last colonoscopy about 3 years ago. This was normal. He denies any gross bloodin the stool. ROS General General: No weight [...] inspection and full ROM Chest Chest palpation & inspection: normal inspection of the chest Resp Effort & Inspection: normal respiratory effort Auscultation: clear to auscultation bilaterally Cardio Rate: regular rate Rhythm: regular rhythm GI Inspection: non-distended Palpation: soft and nontender Skin General: no rashes or lesions noted Neuro General: patient alert and patient oriented x3 Extrem General: full ROM Psych Appearance: grossly normal Mental Status: mental status grossly normal Assessment and Plan Assessment and Plan (1) Positive occult stool blood test: Status: Acute (2) Anemia: Status: Acute Orders: Orders Colonoscopy Today EGD Today Plan The patient has anemia and a positive fecal occult blood test. I discussed performing EGD as well as colonoscopy to evaluate the GI tract. I explained endoscopy in detail to the patient. I explained the risks including but not limited to stroke or heart attack with anesthesia, perforation of the GI tract, bleeding, infection. I explained that any of these could necessitate further emergency surgery. The patient understands and all questions were answered sufficiently. The patient wishes to proceed with procedure. Patient will hold his aspirin for 5 days prior to surgery. Michoacano Gil MD Pager: [facility] [address] [place] [address], [address] [place] [phone] Office: I have examined the patient and the H&P has been reviewed. There are no clinicalchanges since date of exam. 01/20/2552 <Electronically signed by Michoacano Gil MD> Cosigner Signature (if applicable): CC: Dr. Michoacano Gil MD; Dr. Ximena Gagnon MD~ Signed [facility] Work Phone: 1(815) 471-913906-17-2025 Consult note [facility] Medical Records Department [address] [place] [address] Anesthesia Postop Eval I 01/20/25 0823 MR#: [id number] Acct: [id number] Name: RENETTAYARED SEBASTIAN Rep #:[id number] : 1960 64 From: Elmer Andres PCP: Dr. Ximena Gagnon MD Status:R EG SDC Y Race: C Location: [place] [address] Anesthesia: Postop Eval I Current Vital Signs Temperature: 97.1 F Pulse Rate: 67 Blood Pressure: 93/60 Respiratory Rate: 16 Pulse Ox: 97 Oxygen Delivery Method: Room Air Assessment Airway patent: Yes Spontaneous unlabored respirations: Yes Mental status: Awake and Calm nausea: No Vomiting: No Anesthesia Complication: No Fluid Hydration Crystalloid volume administer (ml): 800 Total IV fluid infused: 800 Progress Note Anesthesia document: Postop Eval 1 completed: Yes 01/20/25 0824 > Date _ Elmer Bucio Signature: Date CC: ~ Signed [facility]06-17-2025 Procedure note [facility] Medical Records Department [address] [place] [address] Colonoscopy Report MR#: [id number] Acct: [id number] Name: YARED PEPE (ROB) Rep #:[id number] : 1960 64 From: Michoacano correia MD PCP: Dr. Ximena Gagnon MD Status:R [facility] Patient Name: Yared Pepe (rob) Procedure Date: 01/20/2025 8:02 AM Date of : 1960 Age: 64 Procedure: Colonoscopy Indications: Iron deficiency anemia Providers: Michoacano Gil MD Referring MD: Ximena Gagnon MD Medicines: Propofol per Anesthesia Patient Profile: This is a 64 year old male. Refer to note in patient chart for documentation of history and physical. Last Colonoscopy: several years ago. Complications: No immediate complications. Procedure: Pre-Anesthesia Assessment: - Prior to the procedure, a History and Physical was performed, and patient medications and allergies were reviewed. The patient's tolerance of previous anesthesia was also reviewed. The risks and benefits of the procedure and the sedation options and risks were discussed with the patient. All questions were answered, and informed consent was obtained. Prior Anticoagulants: The patient has taken no anticoagulant or antiplatelet agents. After reviewing the risks and benefits, the patient was deemed in satisfactory condition to undergo the procedure. After I obtained informed consent, the scope was passed under direct vision. Throughout the procedure, the patient's blood pressure, pulse, and oxygen saturations were monitored continuously. The Colonoscope was introduced through the anus and advanced to the cecum, identified by appendiceal orifice and ileocecal valve. The colonoscopy was performed without difficulty. The patient tolerated the procedure well. The quality of the bowel preparation was good. The ileocecal valve, appendiceal orifice, and rectum were photographed. Scope In: 8:02:57 AM Scope Withdrawal Time 0 hours 6 minutes 36 seconds Scope Out: 8:13:01 AM Total Procedure Duration Time 0 hours 10 minutes 4 seconds Findings: The entire examined colon appeared normal on direct and retroflexion views. Impression: - The entire examined colon is normal on direct and retroflexion views. - No specimens collected. Recommendation: - Discharge patient to home. - Resume previous diet. - Continue present medications. - Repeat colonoscopy in 10 years for screening purposes. Procedure Code(s): --- Professional --- 96250, Colonoscopy, flexible; diagnostic, including collection of specimen(s) by brushing or washing, when performed (separate procedure) Diagnosis Code(s): --- Professional --- D50.9, Iron deficiency anemia, unspecified CPT copyright 2021 [employer]. All rights reserved. The codes documented in this report are preliminary and upon cpc coder review may be revised to meet current compliance requirements. Michoacano Gil MD 01/20/2025 8:19:04 AM This report has been signed electronically. Number of Addenda: 0 Note Initiated On: 01/20/2025 8:02 AM 01/20/25818 Date _ Michoacano Gil MD Cosigner Signature: Date (if indicated) CC: Dr. Michoacano Gil MD; Dr. Ximena Gagnon MD ~ Date Dictated: 01/20/25801 Date Transcribed: Bulk Loader: AC Signed [facility]06-17-2025 Procedure note [facility] Medical Records Department [address] [place] [address] Operative Report - CC Letter MR#: [id number] Acct: [id number] Name: YARED PEPE (ROB) Rep #:[id number] : 1960 64 From: Michoacano correia MD PCP: Dr. Ximena Gagnon MD Status:R EG [facility] 01/20/2025 Ximena Gagnon MD [address] [place] [address] Re : Colonoscopy procedure for Yared Pepe (rob) Dear Dr. Gagnon This procedure was performed on Monday, January 20, 2025. My impressions and recommendations are as follows: Impressions : - The entire examined colon is normal on direct and retroflexion views. - No specimens collected. Recommendations : - Discharge patient to home. - Resume previous diet. - Continue present medications. - Repeat colonoscopy in 10 years for screening purposes. My findings are described in the full procedure note, which is enclosed. If I can be of further assistance, please feel free to contact me at Doctor phone number(s): , Work: . Sincerely, Michoacano Gil MD 01/20/2025 8:19:04 AM This report has been signed electronically. 01/20/25818 Date _ Michoacano Gil MD Cosigner Signature: Date (if indicated) CC: Dr. Michoacano Gil MD; Dr. Ximena Gagnon MD ~ Date Dictated: 01/20/25801 Date Transcribed: Bulk Loader: AC Signed [facility]06-17-2025 Procedure note [facility] Medical Records Department [address] [place] [address] EGD Report MR#: [id number] Acct: [id number] Name: YARED PEPE (ROB) Rep #:[id number] : 1960 64 From: Michoacano correia MD PCP: Dr. Ximena Gagnon MD Status:R [facility] Patient Name: Yared Pepe (rob) Procedure Date: 01/20/2025 7:47 AM Date of : 1960 Age: 64 Procedure: Upper GI endoscopy Indications: Iron deficiency anemia Providers: Michoacano Gil MD Referring MD: Ximena Gagnon MD Medicines: Propofol per Anesthesia Patient Profile: This is a 64 year old male. Refer to note in patient chart for documentation of history and physical. Complications: No immediate complications. Procedure: Pre-Anesthesia Assessment: - Prior to the procedure, a History and Physical was performed, and patient medications and allergies were reviewed. The patient's tolerance of previous anesthesia was also reviewed. The risks and benefits of the procedure and the sedation options and risks were discussed with the patient. All questions were answered, and informed consent was obtained. Prior Anticoagulants: The patient has taken no anticoagulant or antiplatelet agents. After reviewing the risks and benefits, the patient was deemed in satisfactory condition to undergo the procedure. After obtaining informed consent, the endoscope was passed under direct vision. Throughout the procedure, the patient's blood pressure, pulse, and oxygen saturations were monitored continuously. The Colonoscope was introduced through the mouth, and advanced to the fourth part of duodenum. The upper GI endoscopy was accomplished without difficulty. The patient tolerated the procedure well. Scope In: 7:59:53 AM Scope Out: 8:01:55 AM Total Procedure Duration Time 0 hours 2 minutes 2 seconds Findings: The esophagus was normal. The stomach was normal. The examined duodenum was normal. Impression: - Normal esophagus. - Normal stomach. - Normal examined duodenum. - No specimens collected. Recommendation: - Discharge patient to home. - Resume previous diet. - Continue present medications. Procedure Code(s): --- Professional --- 09716, Esophagogastroduodenoscopy, flexible, transoral; diagnostic, including collection of specimen(s) by brushing or washing, when performed (separate procedure) Diagnosis Code(s): --- Professional --- D50.9, Iron deficiency anemia, unspecified CPT copyright 2021 [employer]. All rights reserved. The codes documented in this report are preliminary and upon cpc coder review may be revised to meet current compliance requirements. Michoacano Gil MD 01/20/2025 8:17:44 AM This report has been signed electronically. Number of Addenda: 0 Note Initiated On: 01/20/2025 7:47 AM 01/20/25 0817 Date _ Michoacano Gil MD Cosigner Signature: Date (if indicated) CC: Dr. Michoacano Gil MD; Dr. Ximena Gagnon MD ~ Date Dictated: 01/20/25746 Date Transcribed: Bulk Loader: AC Signed [facility]06-17-2025 Procedure note [facility] Medical Records Department [facility] [place] [address] Operative Report - CC Letter MR#: [id number] Acct: [id number] Name: YARED PEPE (ROB) Rep #:[id number] : 1960 64 From: Michoacano correia MD PCP: Dr. Ximena Gagnon MD Status:Kristy [facility] 01/20/2025 Ximena Gagnon MD [address] [place] [address] Re : Upper GI endoscopy procedure for Baker (rob) Renetta Dear Dr. Gagnon This procedure was performed on Monday, January 20, 2025. My impressions and recommendations are as follows: Impressions : - Normal esophagus. - Normal stomach. - Normal examined duodenum. - No specimens collected. Recommendations : - Discharge patient to home. - Resume previous diet. - Continue present medications. My findings are described in the full procedure note, which is enclosed. If I can be of further assistance, please feel free to contact me at Doctor phone number(s): , Work: . Sincerely, Michoacano Gil MD 01/20/2025 8:17:44 AM This report has been signed electronically. 01/20/25817 Date _ Michoacano Gil MD Cosigner Signature: Date (if indicated) CC: Dr. Michoacano Gil MD; Dr. Ximena Gagnon MD ~ Date Dictated: 01/20/25746 Date Transcribed: Bulk Loader: AC Signed [facility]06-17-2025 Consult note [facility] Medical Records Department [address] [place] [address] Pre-Anesthesia Evaluation 01/20/25713 MR#: [id number] Acct: [id number] Name: YARED PEPE (ROB) Rep #:[id number] : 1960 64 From: Conrado Quiroz MD PCP: Dr. Ximena Gagnon MD Status:R [facility] Y Race: C Location: [place] [address] ASA Classification* ASA Classification ASA Classification: 2 Assessment & Plan Anesthesia* Anesthesia Assessment Anesthesia Assessment: Discussed sedation and/or anesthesia options, risks, benefits, and alternatives with patient/parents/legal guardian/POA. Questions invited. The patient/parents/legal guardian/POA seems to understand and agrees to proceedwith anesthesia plan. Reviewed the physical assessment, medical history, allergy history and patient home medications list prior to surgery/procedure/anesthetic and documented any changes. Performed airway and anesthesia risk assessments. Anesthesia Type Anesthesia Type: General History Source History Obtained from:: Patient and Chart Anesthesia Focused Assessment* Temperature: 98.1 F Pulse Rate: 55 Blood Pressure: 133/81 Respiratory Rate: 16 Pulse Ox: 98 Oxygen Delivery Method: Room Air Airway Assessment Mouth opens: >3 cm Mallampati Score: II Teeth Condition: Intact Neck Range of motion (ROM): Full ROM Labs Anesthesia Preop lab: CBC WBC 9.2 K/mm3 (4.4-11.0) 12/12/24 08:50 12/12/24 RBC 4.35 M/mm3 (4.6-6.2) L 12/12/24 08:50 12/12/24 Hgb 12.6 g/dL (13.0-16.5) L 12/12/24 08:50 5 Hct 38.3 % (40-54) L 12/12/24 08:50 12/12/24 Plt Count 355 K/mm3 (150-450) 12/12/24 08:50 12/12/24 CHEMISTRY Potassium 5.0 mmol/L (3.3-5.1) 12/12/24 08:50 12/12/24 Sodium 134 mmol/L (133-145) 12/12/24 08:50 12/12/24 BUN 16 mg/dL (4-19) 12/12/24 08:50 12/12/24 Creatinine 1.06 mg/dL (0.70-1.20) 12/12/24 08:50 12/12/24 Glucose 110 mg/dL (70-99) H 12/12/24 08:50 12/12/24 TSH 1.09 uIU/mL (0.358-3.74) 08/29/22 08:33 COAG Pre-Assessment Diagnosis/Proposed Procedure Planned Operative Procedure(s): COLONOSCOPY/EGD Anesthesia History 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 When Was Last Pacemaker Check QUESTION #4 FULL TEXT: You/Your Family Experience fever (hyperthermia) with Anesthesia Last Oral Intake Last Oral intake: Last Oral Intake NPO since 03:30 01/20/25 06:49 Meds taken in AM with sips of Yes 01/20/25 06:49 water? 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 Female No 01/16/25 13:09 HX of Motion Sickness No 01/16/25 13:09 HX of N/V After Surgery No 01/16/25 13:09 Non-Smoker Yes 01/16/25 13:09 Duration of Surgery greater No 01/16/25 13:09 than 60 minutes Number of Risk Factors 1 01/16/25 13:09 PONV Score Low Risk 01/16/25 13:09 Height & Weight Height & Weight: Anesthesia: Height & Weight Height 5 ft 7 in 01/20/25 06:49 Weight: 93 kg 01/20/25 06:49 Body Mass Index (BMI) 32.1 01/20/25 06:49 Respiratory Assessment Respiratory Assessment - archaeology professor: Respiratory Tract Infection Hx - archaeology professor Hx Respiratory Tract Infection No 01/16/25 13:09 STOP Sleep Apnea STOP Sleep Apnea - archaeology professor: STOP Sleep Apnea - archaeology professor Hx Hypertension Yes: CONTROLLED WITH MEDS 01/16/25 13:09 Hx Sleep Apnea No 01/16/25 13:09 CPAP BIPAP Do you snore loudly (louder No 01/16/25 13:09 than talking or can be heard Do you often feel tired/ No 01/16/25 13:09 fatigued/ sleepy during daytime? Has anyone observed you stop No 01/16/25 13:09 breathing during sleep? STOP Results Negative 01/16/25 13:09 QUESTION #5 FULL TEXT : Do you snore loudly (louder than talking or can be heard through closeddoors)? 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 Specify any problems Hx of Preganancy in last 3 N/A 01/16/25 13:09 Months Nurse Filling Out Transfusion VCHRISTIN 01/16/25 13:09 & Questions: Date: 01/16/25 01/16/25 13:09 Time: 13:10 01/16/25 13:09 Patient unable to answer at this time (ie. 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: /Reproductive Hx- archaeology professor Hx Now No 01/16/25 13:09 Gestational Age (in weeks): EDC: Hx Hx Para Hx Section SAB No 01/16/25 13:09 Active Medications Active Medications: Current Medications Generic Name Dose Route Start Last Admin Trade Name Freq PRN Reason Stop Dose Admin Lactated Ringer's 1,000 mls @ 15 mls/hr 01/20/25 06:45 01/20/25 06:58 IV 15 mls/hr .Q48H RERE Administration PFSH Medical History (Updated 01/16/25 @ 13:09 by Amarilys Wynne) Positive occult stool blood test Anemia Screening for prostate cancer Bilateral shoulder pain Borderline type 2 diabetes mellitus Alcohol use Non-smoker History of stress test History of deviated nasal septum Encounter for preventative adult health care examination Obesity (BMI 30-39.9) Need for shingles vaccine Bilateral foot pain Health care maintenance Hyperlipemia Hypertension Gout Home Medications ?Medication ?Instructions ?Recorded ?Last Taken ?Type aspirin 81 mg capsule 81 mg PO DAILY 05/16/2101/04 History multivitamin 1 tab PO DAILY 05/16/2101/04 History fexofenadine 60 mg tablet (Rosalinda 60 mg PO DAILY 08/08 08/28 Unknown History Allergy) atenolol 50 mg tablet 50 mg PO DAILY #90 tabs 08/0601/20/25 05:30 Rx ibuprofen 200 mg capsule 200 mg PO Q6H PRN pain 08/29 Unknown History rosuvastatin 20 mg tablet 20 mg PO DAILY #90 tabs /0 01/28 Unknown Rx lisinopril 20 1 tab PO DAILY #90 tabs 12/04 11/28 Unknown Rx mg-hydrochlorothiazide 12.5 mg tablet phentermine 37.5 mg tablet 18.75 mg (1/2 x 37.5 mg) PO QDAY 12/30/24 01/13/25 Rx (Adipex-P) #30 tabs Allergy/AdvReac Type Severity Reaction Status Date / Time Penicillins Allergy Unknown unknown Verified 01/20/25 06:48 Family History Father Heart disease Daughter No problems noted. Mother Breast cancer Grandmother Colon cancer Grandfather Heart disease Surgical History (Updated 01/16/25 @ 13:09 by Amarilys Wynne) Hx of colonoscopy Hx of knee surgery History of colonoscopy Social History adopted: No household members: spouse current occupational status: employed current occupation: [employer] pets and animals: No Smoking Status: Never smoker alcohol intake: current alcohol intake frequency: holidays/special occasions only substance use type: does not use caffeine: Yes (3-4) Type: carbonated beverages what type of physical activity do you participate in: none seatbelt use: always do you feel safe at home: Yes Review of Systems (Anesthesia) ROS Narrative System reviewed and no additional complaints, except as documented. Physical Exam Const alert, oriented x3 and average body habitus Resp normal respiratory effort, normal air movement and clear to auscultation bilaterally Cardio regular rate, regular rhythm, no murmurs and diaphoretic 01/20/25 0722 > Date _ Conrado Herediaignmu Signature: Date CC: ~ Signed [facility]06-17-2025 History and physical note [facility] Medical Records Department [address] [place] [address] History & Physical Exam 01/20/25 0652 MR#: [id number] Acct: [id number] Name: YARED PEPE (ROB) Rep #:[id number] : 1960 64 From: Michoacano correia MD PCP: Dr. 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: No Accompanied by: Self Is patient in pain?: No Allergies Penicillins Allergy (Unknown, Verified 12/31/24 10:48) unknown Medications ?Medication ?Instructions ?Recorded ?Confirmed ?Type aspirin 81 mg capsule 81 mg PO DAILY 05/16/21 12/31/24 History multivitamin 1 tab PO DAILY 05/16/21 12/31/24 History fexofenadine 60 mg tablet (Rosalinda 60 mg PO DAILY 09/05/22 12/31/24 History Allergy) atenolol 50 mg tablet 50 mg PO DAILY #90 tabs 08/20/23 5 Rx ibuprofen 200 mg capsule 200 mg PO Q6H PRN 08/29/24 12/31/24 Hist ory rosuvastatin 20 mg tablet 20 mg PO DAILY #90 tabs 10/09/24 5 Rx lisinopril 20 1 tab PO DAILY #90 tabs 12/17/24 5 Rx mg-hydrochlorothiazide 12.5 mg tablet phentermine 37.5 mg tablet 18.75 mg (1/2 x 37.5 mg) PO QDAY 5 12/31/24 Rx (Adipex-P) #30 tabs PFSH Medical [...] History of colonoscopy Family History Father Heart diseaseDaughter No problems noted. Mother Breast cancerGrandmother Colon cancerGrandfather Heart disease Social History adopted: No household [...] here for iron deficiency anemia and positive fecaloccult blood. Patient is on aspirin. He denies abdominal pain. He had his last colonoscopy about 3 years ago. This was normal. He denies any gross bloodin the stool. ROS General General: No weight [...] inspection and full ROM Chest Chest palpation & inspection: normal inspection of the chest Resp Effort & Inspection: normal respiratory effort Auscultation: clear to auscultation bilaterally Cardio Rate: regular rate Rhythm: regular rhythm GI Inspection: non-distended Palpation: soft and nontender Skin General: no rashes or lesions noted Neuro General: patient alert and patient oriented x3 Extrem General: full ROM Psych Appearance: grossly normal Mental Status: mental status grossly normal Assessment and Plan Assessment and Plan (1) Positive occult stool blood test: Status: Acute (2) Anemia: Status: Acute Orders: Orders Colonoscopy Today EGD Today Plan The patient has anemia and a positive fecal occult blood test. I discussed performing EGD as well as colonoscopy to evaluate the GI tract. I explained endoscopy in detail to the patient. I explained the risks including but not limited to stroke or heart attack with anesthesia, perforation of the GItract, bleeding, infection. I explained that any of these could necessitate further emergency surgery. The patient understands and all questions were answered sufficiently. The patient wishes to proceed with procedure. Patient will hold his aspirin for 5 days prior to surgery. Michoacano Gil MD Pager: [facility] [address] [place] [address], [address] [place] [address] Office: I have examined the patient and the H&P has been reviewed. There are no clinicalchanges since date of exam. 01/20/25651 Cosigner Signature (if applicable): CC: Dr. Michoacano Gil MD; Dr. Ximena Gagnon MD~ Signed [facility]06-17-2025 [facility] Medical Records Department [address] [place] [address] History Physical Exam 01/20/25651 MR#: [id number] Acct: [id number] Name: YARED PEPE (ROB) Rep #: [id number] : 1960 64 From: Michoacano Gil MD PCP: Dr. Ximena Gagnon MD Status:[facility] Location: [place] [address] History and Physical Date of Admission: 01/20/25 Intake Vital Signs 12/13/2507:13 12/31/2509:55 Height 5 ft 8 in 5 ft [...] room air Intake Visit Reasons: ANEMIA/POSITIVE OCCULT Conservation Worker Required: No Accompanied by: Self Is patient in pain?: No Allergies Penicillins Allergy (Unknown, Verified 12/31/24 10:48) unknown Medications ???Medication ???Instructions ???Recorded ???Confirmed ???Type aspirin 81 mg capsule 81 mg PO DAILY 05/16/21 12/31/24 History multivitamin 1 tab PO DAILY 05/16/21 12/31/24 History fexofenadine 60 mg tablet (Rosalinda 60 mg PO DAILY 09/05/22 12/31/24 History Allergy) atenolol 50 mg tablet 50 mg PO DAILY #90 tabs 08/20/23 12/31/24 Rx ibuprofen 200 mg capsule 200 mg PO Q6H PRN 08/29/24 12/31/24 History rosuvastatin 20 mg tablet 20 mg PO DAILY #90 tabs 10/09/24 12/31/24 Rx lisinopril 20 1 tab PO DAILY #90 tabs 12/17/24 12/31/24 Rx mg-hydrochlorothiazide 12.5 mg tablet phentermine 37.5 mg tablet 18.75 mg (1/2 x 37.5 mg) PO QDAY 12/30/24 12/31/24 Rx (Adipex-P) #30 tabs PFSH [...] History of colonoscopy Family History Father Heart diseaseDaughter No problems noted. Mother Breast cancerGrandmother Colon cancerGrandfather Heart disease Social History adopted: No household members: spouse current occupational status: employed current occupation: [employer] pets and animals: No Smoking Status: [...] rashes or lesions noted (more content not included)...[facility]05-09-2025 Evaluation note* Diagnosis Onset Date Resolution Status Admit Date Borderline type 2 diabetes mellitus chronic December 12, 2024 8: 09am Hyperlipemia chronic December 12 8:09am Hypertension chronic December 12 8:09am Obesity (BMI 30-39.9) chronic December 12, 2024 8:09am Anemia acute December 31, 2024 10:41am Positive occult stool blood test acu te December 31, 2024 10:41am [facility] Work Phone: 1(389) 947-233102-03-2025 Evaluation note* Diagnosis Onset Date Resolution Status Admit Date Bilateral shoulder pain acute F 2024 7:57am Borderline type 2 diabetes mellitus chronic September 08 7:57am Hypertension chronic September 7:57am Obesity (BMI 30-39.9) chronic Sep 7:57am Bilateral shoulder pain acute F 2024 7:48am Borderline type 2 diabetes mellitus chronic December 12, 2024 8: 09am Hyperlipemia chronic December 12 8:09am Hypertension chronic December 12 8:09am Obesity (BMI 30-39.9) chronic December 12, 2024 8:09am [facility] Work Phone: 1(839) 360-846101-24-2025 Evaluation note* Diagnosis Onset Date Resolution Status Admit Date Right knee DJD acute August 292024 7:55am Bilateral shoulder pain acute F 2024 7:57am Borderline type 2 diabetes mellitus chronic September 08 7:57am Hypertension chronic September 7:57am Obesity (BMI 30-39.9) chronic Sep 7:57am Bilateral shoulder pain acute F 2024 7:48am Borderline type 2 diabetes mellitus chronic December 12, 2024 8: 09am Hyperlipemia chronic December 12 8:09am Hypertension chronic December 12 8:09am Obesity (BMI 30-39.9) chronic December 12, 2024 8:09am [facility] Work Phone: 1(204) 295-587904-21-2023 Procedure [facility]24[facility]2022 [facility] Conrado Quiroz [facility] Note Date/Time January 20, 2025 7:22 am [facility] Medical Records Department [address] [place] [address] Pre-Anesthesia Evaluation 01/20/25 0714 MR#: [id number] Acct: [id number] Name: YARED PEPE (ROB) Rep #:[id number] : 1960 64 From: Conrado Quiroz MD PCP: Dr. Ximena Gagnon MD Status:R EG SDC Y Race: C Location: [place] [address] ASA Classification* ASA Classification ASA Classification: 2 Assessment & Plan Anesthesia* Anesthesia Assessment Anesthesia Assessment: Discussed sedation and/or anesthesia options, risks, benefits, and alternatives with patient/parents/legal guardian/POA. Questions invited. The patient/parents/legal guardian/POA seems to understand and agrees to proceedwith anesthesia plan. Reviewed the physical assessment, medical history, allergy history and patient home medications list prior to surgery/procedure/anesthetic and documented any changes. Performed airway and anesthesia risk assessments. Anesthesia Type Anesthesia Type: General History Source History Obtained from:: Patient and Chart Anesthesia Focused Assessment* Temperature: 98.1 F Pulse Rate: 55 Blood Pressure: 133/81 Respiratory Rate: 16 Pulse Ox: 98 Oxygen Delivery Method: Room Air Airway Assessment Mouth opens: >3 cm Mallampati Score: II Teeth Condition: Intact Neck Range of motion (ROM): Full ROM Labs Anesthesia Preop lab: CBC WBC 9.2 K/mm3 (4.4-11.0) 12/12/24 08:50 12/12/24 RBC 4.35 M/mm3 (4.6-6.2) L 12/12/24 08:50 12/12/24 Hgb 12.6 g/dL (13.0-16.5) L 12/12/24 08:50 5 Hct 38.3 % (40-54) L 12/12/24 08:50 12/12/24 Plt Count 355 K/mm3 (150-450) 12/12/24 08:50 12/12/24 CHEMISTRY Potassium 5.0 mmol/L (3.3-5.1) 12/12/24 08:50 12/12/24 Sodium 134 mmol/L (133-145) 12/12/24 08:50 12/12/24 BUN 16 mg/dL (4-19) 12/12/24 08:50 12/12/24 Creatinine 1.06 mg/dL (0.70-1.20) 12/12/24 08:50 12/12/24 Glucose 110 mg/dL (70-99) H 12/12/24 08:50 12/12/24 TSH 1.09 uIU/mL (0.358-3.74) 08/29/22 08:33 COAG Pre-Assessment Diagnosis/Proposed Procedure Planned Operative Procedure(s): COLONOSCOPY/EGD Anesthesia History 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 When Was Last Pacemaker Check QUESTION #4 FULL TEXT: You/Your Family Experience fever (hyperthermia) with Anesthesia Last Oral Intake Last Oral intake: Last Oral Intake NPO since 03:30 01/20/25 06:49 Meds taken in AM with sips of Yes 01/20/25 06:49 water? 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 Female No 01/16/25 13:09 HX of Motion Sickness No 01/16/25 13:09 HX of N/V After Surgery No 01/16/25 13:09 Non-Smoker Yes 01/16/25 13:09 Duration of Surgery greater No 01/16/25 13:09 than 60 minutes Number of Risk Factors 1 01/16/25 13:09 PONV Score Low Risk 01/16/25 13:09 Height & Weight Height & Weight: Anesthesia: Height & Weight Height 5 ft 7 in 01/20/25 06:49 Weight: 93 kg 01/20/25 06:49 Body Mass Index (BMI) 32.1 01/20/25 06:49 Respiratory Assessment Respiratory Assessment - archaeology professor: Respiratory Tract Infection Hx - archaeology professor Hx Respiratory Tract Infection No 01/16/25 13:09 STOP Sleep Apnea STOP Sleep Apnea - archaeology professor: STOP Sleep Apnea - archaeology professor Hx Hypertension Yes: CONTROLLED WITH MEDS 01/16/25 13:09 Hx Sleep Apnea No 01/16/25 13:09 CPAP BIPAP Do you snore loudly (louder No 01/16/25 13:09 than talking or can be heard Do you often feel tired/ No 01/16/25 13:09 fatigued/ sleepy during daytime? Has anyone observed you stop No 01/16/25 13:09 breathing during sleep? STOP Results Negative 01/16/25 13:09 QUESTION #5 FULL TEXT : Do you snore loudly (louder than talking or can be heard through closed doors)? 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 Specify any problems Hx of Preganancy in last 3 N/A 01/16/25 13:09 Months Nurse Filling Out Transfusion VCHRISTIN 01/16/25 13:09 & Questions: Date: 01/16/25 01/16/25 13:09 Time: 13:10 01/16/25 13:09 Patient unable to answer at this time (ie. 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: /Reproductive Hx- archaeology professor Hx Now No 01/16/25 13:09 Gestational Age (in weeks): EDC: Hx Hx Para Hx Section SAB No 01/16/25 13:09 Active Medications Active Medications: Current Medications Generic Name Dose Route Start Last Admin Trade Name Freq PRN Reason Stop Dose Admin Lactated Ringer's 1,000 mls @ 15 mls/hr 01/20/25 06:45 01/20/25 06:58 IV 15 mls/hr .Q48H RERE Administration PFSH Medical History (Updated 01/16/25 @ 13:09 by Amarilys Wynne) Positive occult stool blood test Anemia Screening for prostate cancer Bilateral shoulder pain Borderline type 2 diabetes mellitus Alcohol use Non-smoker History of stress test History of deviated nasal septum Encounter for preventative adult health care examination Obesity (BMI 30-39.9) Need for shingles vaccine Bilateral foot pain Health care maintenance Hyperlipemia Hypertension Gout Home Medications ?Medication ?Instructions ?Recorded ?Last Taken ?Type aspirin 81 mg capsule 81 mg PO DAILY 05/16/2101/04 History multivitamin 1 tab PO DAILY 05/16/2101/04 History fexofenadine 60 mg tablet (Rosalinda 60 mg PO DAILY 08/08 08/28 Unknown History Allergy) atenolol 50 mg tablet 50 mg PO DAILY #90 tabs 08/0601/20/25 05:30 Rx ibuprofen 200 mg capsule 200 mg PO Q6H PRN pain 08/29 Unknown History rosuvastatin 20 mg tablet 20 mg PO DAILY #90 tabs 01/28 Unknown Rx lisinopril 20 1 tab PO DAILY #90 tabs 12/04 11/28 Unknown Rx mg-hydrochlorothiazide 12.5 mg tablet phentermine 37.5 mg tablet 18.75 mg (1/2 x 37.5 mg) PO QDAY 12/30/24 01/13/25 Rx (Adipex-P) #30 tabs Allergy/AdvReac Type Severity Reaction Status Date / Time Penicillins Allergy Unknown unknown Verified 01/20/25 06:48 Family History Father Heart disease Daughter No problems noted. Mother Breast cancer Grandmother Colon cancer Grandfather Heart disease Surgical History (Updated 01/16/25 @ 13:09 by Amarilys Wynne) Hx of colonoscopy Hx of knee surgery History of colonoscopy Social History adopted: No household members: spouse current occupational status: employed current occupation: [employer] pets and animals: No Smoking Status: Never smoker alcohol intake: current alcohol intake frequency: holidays/special occasions only substance use type: does not use caffeine: Yes (3-4) Type: carbonated beverages what type of physical activity do you participate in: none seatbelt use: always do you feel safe at home: Yes Review of Systems (Anesthesia) ROS Narrative System reviewed and no additional complaints, except as documented. Physical Exam Const alert, oriented x3 and average body habitus Resp normal respiratory effort, normal air movement and clear to auscultation bilaterally Cardio regular rate, regular rhythm, no murmurs and diaphoretic 01/20/25 07 <Electronically signed by Conrado Quiroz MD> Date _ Conrado Quiroz MD Cosigner Signature: Date CC: ~ Signed [facility] Work Phone: Consult note Author Elmer Andres [facility] Note Date/Time January 20, 2025 8:24 am [facility] Medical Records Department [address] [place] [address] Anesthesia Postop Eval I 01/20/25 08 MR#: [id number] Acct: [id number] Name: YARED PEPE (ROB) Rep #:[id number] : 1960 64 From: Elmer Andres PCP: Dr. Ximena Gagnon MD Status:R EG SDC Y Race: C Location: [place] [address] Anesthesia: Postop Eval I Current Vital Signs Temperature: 97.1 F Pulse Rate: 67 Blood Pressure: 93/60 Respiratory Rate: 16 Pulse Ox: 97 Oxygen Delivery Method: Room Air Assessment Airway patent: Yes Spontaneous unlabored respirations: Yes Mental status: Awake and Calm nausea: No Vomiting: No Anesthesia Complication: No Fluid Hydration Crystalloid volume administer (ml): 800 Total IV fluid infused: 800 Progress Note Anesthesia document: Postop Eval 1 completed: Yes 01/20/25823 <Electronically signed by Elmer Andres > Date _ Elmer Herediaigner Signature: Date CC: ~ Signed [facility] Work Phone: Evaluation note* Diagnosis Onset Date Resolution Status [facility] acute Hypertension chronic [facility] Work Phone: Evaluation note* Diagnosis Onset Date Resolution Status Encounter for preventative a dult health care examination acute Hypertension chronic Encounter for screening for malignant neoplasm of colo n acute [facility] Work Phone: Evaluation note* Diagnosis Onset Date Resolution Status Borderline type 2 diabetes mellitus acute Encounter for preventative a dult health care examination acute Obesity (BMI 30-39.9) acute Hypertension chronic [facility] Work Phone: History and physical note Author Dr. Gil [facility] November 24, 2022 7:18am Note Date/Time November 24, 2022 7:1 8am [facility] Medical Records Department [address] [place] [address] History & Physical Exam 11/24/22 0716 MR#: [id number] Acct: [id number] Name: YARED PEPE Rep #:[id number] : 1960 62 From: Michoacano correia MD PCP: Pillo Anderson HUMAN RESOURCES TALENT MANAGER-C Status:[facility] Location: [place] [address] HPI - General HPI Narrative YARED PEPE, is a 62 M who presents for screening colonoscopy. Patient has had his last colonoscopy about 10 years ago. He denies any abdominal pain or blood in stool. Patient denies any family history of colon cancer except for his grandmother. [facility] Medical History (Updated 11/21/22 @ 10:49 by Debbie Vickers) Alcohol use Bilateral foot pain Encounter for preventative adult health care examination [facility] Health care maintenance History of deviated [...] unknown Discharge Is Pt Admitted From a Alf, or a Senior Living: No After D/C, Where Do you Plan [...] proceed with procedure. Michoacano Gil MD Pager: [facility] [address] [place] [address], [address] [place] [address] Office: Surgery Risks - Colonoscopy Risks Include but are not Limited To: Risks include but are not limited to: Bleeding, perforation requiring further surgery, inability to complete colonoscopy requiring barium enema. 11/24/22717 <Electronically signed by Michoacano Gil MD> Cosigner Signature (if applicable): CC: HUMAN RESOURCES TALENT MANAGERLorenza Anderson; Dr. Michoacano Gil MD~ Signed [facility] Work Phone: Reason for referral (narrative)No reason for referral information [facility] Work Phone: Summary Purpose Family History No Family History Records Found Relationship Condition Age at Onset Recorded Date/T rita father Cardiac disease Unknown mother Malignant neoplasm of breast Unknown grandmother Malignant neoplasm of colon Unknown grandfather Cardiac disease Unknown Advance Directives No Advanced Directives Records Found Advance Directive Response Recorded Date/ Time Living Will No November 21, 2022 10:45am Power of Assistant Auditor No November 21 10:45am Advance Directive Response Recorded Date/ Time Living Will No November 21, 2022 9:45am Power of Assistant Auditor No November 21 9:45am Advance Directive Response Recorded Date/ Time Living Will No November 21, 2022 10:45am Do you have a Healthcare Power of Assistant Auditor? No November 21, 2022 10:45am Advance Directive Response Recorded Date/ Time Do you have a Healthcare Power of Assistant Auditor? Yes January 16, 2025 1:09pm Chief Complaint and Reason for Visit Chief Complaint 1 Y FU Amb Documentation Reason for Visit Encounter for preven tative adult health care examination Hypertension Chief Complaint 1 Y FU Amb Documentation Reason for Visit Encounter for preven tative adult health care examination Hypertension Encounter for screening for malignant neoplasm of colon Chief Complaint HUMAN RESOURCES TALENT MANAGER. RE-EST Reason for Visit Borderline type 2 [...] 08 7:57am Borderline type 2 diabetes mellitus [facility]2024 7:57am Hypertension September 08, 2024 7 :57am [...] 08 7:57am Borderline type 2 diabetes mellitus [facility]2024 7:57am Hypertension September 08, 2024 7 :57am Obesity (BMI 30-39.9) September 08, 2024 7:57am Bilateral shoulder pain September 12 7:48am Borderline type 2 diabetes mellitus December 12, 2024 8:09am Hyperlipemia December 12, 2024 8:09am Hypertension December 12, 2024 8:09am Obesity (BMI 30-39.9) December 12, 2024 8:09 am Chief Complaint Admit Date 3 M FU December 12, 2024 8:09am E-ORDER December 18, 2024 7:40a m ANEMIA/POSITIVE OCCULT December 31, 2024 10 :41am Reason for Visit Admit Date Borderline type 2 diabetes mellitus December 12, 2024 8:09am Hyperlipemia December 12, 2024 8:09am Hypertension December 12, 2024 8:09am Obesity (BMI 30-39.9) December 12, 2024 8:09 am Anemia December 31, 2024 10:41 am Positive occult stool blood test December 10:41am Chief Complaint Admit Date 3 M FU December 12, 2024 8:09am E-ORDER December 18, 2024 7:40a m ANEMIA/POSITIVE OCCULT December 31, 2024 10 :41am 3 M FU March 27, 2025 8: 56am Additional Source Comments (unrecognized sect ion and content) No Status Records FoundNo Status Records Found INFORMATION SOURCE (unrecogn ized section and content) DATE CREATED AUTHOR 01/30/2018 [facility] DATE CREATED AUTHOR AUTHOR'S ORGANIZ ATION 06/18/2025 [facility] Care Teams (unrecognized sec tion and content) Team Status: Active Member Role Status Dates Carrie Nunezess Family Provider Active Pillo Anderson HUMAN RESOURCES TALENT MANAGER, HUMAN RESOURCES TALENT MANAGER-C Primary Care Provider Active Team Status: Inactive Member Role Status Dates Pillo Anderson HUMAN RESOURCES TALENT MANAGER, HUMAN RESOURCES TALENT MANAGER-C Primary Care Provider, Attending P rovider Active Dr. Ximena Gagnon MD Referring Provider Active Team Status: Active Member Role Status Dates Pillo Anderson HUMAN RESOURCES TALENT MANAGER, HUMAN RESOURCES TALENT MANAGER-C Primary Care Provider Active [facility] Attending Provider Active Team Status: Inactive Member Role Status Dates Pillo Anderson HUMAN RESOURCES TALENT MANAGER, HUMAN RESOURCES TALENT MANAGER-C Primary Care Provide r, Attending Provider, Referring Provider Active Team Status: Active Member Role Status Dates Pillo Anderson HUMAN RESOURCES TALENT MANAGER, HUMAN RESOURCES TALENT MANAGER-C Primary Care Provider, Referring P rovider Active Dr. Michoacano Gil MD Attending Provider, Other Provider Active Team Status: Inactive Member Role Status Dates Pillo Anderson HUMAN RESOURCES TALENT MANAGER, HUMAN RESOURCES TALENT MANAGER-C Primary Care Provider, Referring P rovider Active Dr. Michoacano Gil MD Attending Provider Active Team Status: Active Member Role Status Dates Carrie Morgan Family Provider Active Dr. Ximena Gagnon MD Primary Care Provider Active Team Status: Inactive Member Role Status Dates Pillo Anderson HUMAN RESOURCES TALENT MANAGER, HUMAN RESOURCES TALENT MANAGER-C Primary Care Provider, Referring P rovider Active [...] December 31, 2024 End: December 31, 2024 Team Status: Inactive Member Role Status Dates Dr. Ximena Gagnon MD Primary Care Provider Active Start: January 20, 2025 End: January 20, 2025 Dr. Ximena Gagnon MD Referring Provider Active Start: January 20, 2025 End: January 20, 2025 Dr. Michoacano Gil MD Attending Provider Active Start: January 20, 2025 End: January 20, 2025 Team Status: Active Member Role Status Dates Dr. Ximena Gagnon MD Primary Care Provider Active Start: January 20, 2025 Dr. Ximena Gagnon MD Referring Provider Active Start: January 20, 2025 Dr. Michoacano Gil MD Attending Provider Active Start: January 20, 2025 Dr. Michoacano Gil MD Other Provider Active Start: January 20, 2025 Team Status: Active Member Role/Relationship Status Dates Dr. Ximena Gagnon MD Primary Care Provider Active Team Status: Inactive Member Role/Relationship Status Dates Dr. Ximena Gagnon MD Primary Care Provider Active Start: December 12, 2024 End: December 12, 2024 Dr. Ximena Gagnon MD Attending Provider Active Start: December 12, 2024 End: December 12, 2024 Dr. Ximena Gagnon MD Referring Provider Active Start: December 12, 2024 End: December 12, 2024 Team Status: Inactive Member Role/Relationship Status Dates Dr. Ximena Gagnon MD Primary Care Provider Active Start: December 12, 2024 End: December 12, 2024 Dr. Ximena Gagnon MD Attending Provider Active Start: December 12, 2024 End: December 12, 2024 Dr. Ximena Gagnon MD Referring Provider Active Start: December 12, 2024 End: December 12, 2024 Team Status: Inactive Member Role/Relationship Status Dates Dr. Ximena Gagnon MD Primary Care Provider Active Start: December 18, 2024 End: December 18, 2024 Dr. Ximena Gagnon MD Attending Provider Active Start: December 18, 2024 End: December 18, 2024 Dr. Ximena Gagnon MD Referring Provider Active Start: December 18, 2024 End: December 18, 2024 Team Status: Inactive Member Role/Relationship Status Dates Dr. Ximena Gagnon MD Primary Care Provider Active Start: December 31, 2024 End: December 31, 2024 Dr. Ximena Gagnon MD Referring Provider Active Start: December 31, 2024 End: December 31, 2024 Dr. Michoacano Gil MD Attending Provider Active Start: December 31, 2024 End: December 31, 2024 Team Status: Inactive Member Role/Relationship Status Dates Dr. Ximena Gagnon MD Primary Care Provider Active Start: January 20, 2025 End: January 20, 2025 Dr. Ximena Gagnon MD Referring Provider Active Start: January 20, 2025 End: January 20, 2025 Dr. Michoacano Gil MD Attending Provider Active Start: January 20, 2025 End: January 20, 2025 Team Status: Active Member Role/Relationship Status Dates Dr. Ximena Gagnon MD Primary Care Provider Active Start: January 20, 2025 Dr. Ximena Gagnon MD Referring Provider Active Start: January 20, 2025 Dr. Michoacano Gil MD Attending Provider Active Start: January 20, 2025 Dr. Michoacano Gil MD Other Provider Active Start: January 20, 2025 Team Status: Inactive Member Role/Relationship Status Dates MARIANA Rajput Attending Provider Active St art: March 27, 2025 End: March 27, 2025 Dr. Ximena Gagnon MD Primary Care Provider Active Start: March 27, 2025 End: March 27, 2025 Dr. Ximena Gagnon MD Referring Provider Active Start: March 27, 2025 End: March 27, 2025 Goals (unrecognized section and content) Goals may [...] BE BASED ON THE PRIMARY CLINICAL RECORDS. [facility] [employer], [facility]. provides no warranty or guarantee of the accuracy or completeness of information in this document.
[2025-06-29 12:55] LABS: AST(SGOT) 24 U/L (<=37); Alanine Aminotransfer ALT/SGPT 22 U/L (<=46); Albumin, Serum 4.3 g/dL (3.4-4.8); Alkaline Phosphatase 57 U/L (40-129); Anion Gap 10 (5-15); BUN 15 mg/dL (4-19); BUN/Creat Ratio 15.1 RATIO (10-20); Calcium,Total 9.7 mg/dL (7.6-11.0); Carbon Dioxide 24.4 mmol/L (21.0-32.0); Chloride 98 mmol/L (98-108); Cholesterol 172 mg/dL (<=200); Globulin 2.6 g/dL (2.2-4.2); Glucose 101 mg/dL (70-99); Low Density Lipoprotein Calc. 79 mg/dL; Potassium 4.9 mmol/L (3.3-5.1); Triglycerides 85 mg/dL; Very Low Density Lipoprotein 17 mg/dL (5-40); cholesterol:hdl ratio screen 2.21
[2025-06-29 17:47] LABS: Vitamin B12 592 pg/mL (180-914)
== END | disposition home or self-care (01) ==
LOC: MTLAB 10:06
PROVIDERS: PCP Internal Medicine; Referring Provider Internal Medicine; Visit Provider Internal Medicine
DX: I10 Essential (primary) hypertension (principal); D64.9 Anemia, unspecified; E78.5 Hyperlipidemia, unspecified
CPT/HCPCS: 36415; 80053; 80061; 82607; 85025